=== PATIENT | female | born 1950 | race Caucasian/White ===

== ENCOUNTER → 2018-05-29 14:09 | Outpatient (CLI) | payer MEDICARE, BC, SELFPAY ==
[2018-05-29 15:04] LABS: Add Manual Diff / Slide Review NO; Basophils Percent Auto 2.1 % (0-2); Eosinophils Percent Auto 2.9 % (2-4); Hematocrit 36.7 % (36-46); Hemoglobin 12.2 g/dL (12.0-16.0); Lymphocytes Percent Auto 26.1 % (25-40); Mean Corpuscular HGB Conc 33.3 % (30-36); Mean Corpuscular Hemoglobin 31.7 PG (26-34); Mean Corpuscular Volume 95.2 fL (80-100); Monocytes Percent Auto 9.7 % (3-14); Neutrophils Absolute Auto 2900 /uL (3000-5900); Neutrophils Percent Auto 59.2 % (50-75); Platelet Count 244 X10^3/uL (150-400); Red Blood Cell Count 3.85 X10^6/uL (4.0-5.2); Red Cell Distribution Width 13.2 % (11.6-14.8)
[2018-05-29 15:15] LABS: BUN Creatinine Ratio 24.4 (6-22); Blood Urea Nitrogen 22 mg/dL (7-17); Carbon Dioxide 28 mmol/L (22-32); Chloride 104 mmol/L (98-107); Estimated Glomerular Filt Rate > 60.0 mL/min (>60); Glucose 95 mg/dL (80-110); HEMOLYSIS < 15 (0-50); Potassium 4.9 mmol/L (3.4-5.1); Sodium 140 mmol/L (137-145)
[2018-05-31 13:43] LABS: Ionized Calcium 6.1 mg/dL (4.8-5.6)
[2018-05-31 14:35] LABS: Parathyroid Hormone Int 227 pg/mL (14-64)
== END ==
PROVIDERS: PCP Physician Assistant; Visit Provider Physician Assistant
DX: E83.52 Hypercalcemia (principal); I10 Essential (primary) hypertension; R79.89 Other specified abnormal findings of blood chemistry
CPT/HCPCS: 36415; 80048; 82330; 83970; 85025

== ENCOUNTER → 2018-07-08 10:13 | Outpatient (CLI) | payer MEDICARE, BC, SELFPAY ==
--- NOTE | 2018-07-08 | DI.MG.S_ITS ---
BILATERAL DIGITAL SCREENING MAMMOGRAM 3D/2D WITH CAD WITH AUGMENTATION: 07/08/2018 CLINICAL: Routine screening. Comparison is made to exams dated: 06/07/2016 mammogram, 10/22/2014 mammogram, and 09/10/2013 mammogram - [facility]. There are scattered fibroglandular elements in both breasts. Current study was also evaluated with a Computer Aided Detection (CAD) system. Bilateral breast implants are stable. No significant masses, calcifications, or other findings are seen in either breast. There has been no significant interval change. IMPRESSION: NEGATIVE There is no mammographic evidence of malignancy. A 1 year screening mammogram is recommended. This exam was interpreted at Station ID: [id number]. NOTE: For mammograms, a report in lay terms will be sent to the patient. Approximately 15% of breast malignancies will not be visualized mammographically. In the management of a palpable breast mass, a negative mammogram must not discourage biopsy of a clinically suspicious lesion. Electronically Signed By: Ayla boogie/marcell:07/08/2018 12:22:24 letter sent: Normal Exam ACR BI-RADS Category 1: Negative [id number]
== END ==
PROVIDERS: PCP Physician Assistant; Visit Provider Physician Assistant
DX: Z12.31 Encounter for screening mammogram for malignant neoplasm of breast (principal)
CPT/HCPCS: 77063; 77067

== ENCOUNTER 2018-09-30 14:30 | Outpatient (RCR) | payer MEDICARE, BC, SELFPAY ==
--- NOTE | 2018-01-08 15:59 | PT.OIE ---
Current Diagnoses Other specified disorders of temporomandibular joint (01/07/18) Cervicalgia (01/07/18) Weakness (01/07/18) Past Medical History (Last Updated 01/08/18 @ 15:57 by Bere Dallas, PT) Chronic low back pain (Acute) Depression (Acute) HTN (hypertension) (Acute) Jaw pain (Acute) Neck pain (Acute) Osteoporosis (Acute) Provider Visit Care Team Role Provider Type ELSIE Barrios Primary Care Provider Non-Staff Specialty: Medical Address: [address] [place] [address], [id number] Email: Hugh Dallas MD Attending Provider Physician Specialty: Ear, Nose, Throat Address: [address] [place] [address], [id number] Email: Physical Therapy Initial Evaluation PT-OP-A Visit Information Start: 01/08/18 13:37 Freq: Status: Active Protocol: Document 01/07/18 11:15 [facility] (Rec: 01/08/18 13:45 [facility] [id number]) Out-Patient Physical Therapy Visit Information Visit Information Visit Type Initial Evaluation Visit Note Gcode 07/31 Visit Start Time 10:30 Visit Stop Time 11:15 Total Visit Minutes 45 Visit Number 1 PT-OP-B Current Condition Start: 01/08/18 13:37 Freq: Status: Active Protocol: Document 01/07/18 11:15 [facility] (Rec: 01/08/18 15:59 [facility] [id number]) Current Condition History of Current Condition History of Current Condition Pt reports she went to the chiropractor [facility] chronic neck & shoulder pain about 6 weeks ago and he did a manipulation that pressed on R jaw to mobilize neck. After this manipulation, pt had had excrutiating R jaw pain. Pt reports it took a while to get into PT but she stopped going to this chiropractor and went to another who she likes better. This chiropractor has been workingon her neck. Reports it was very difficult she could barely eat anything d/t pain until the past 2 weeks where she has not had any jaw pain. She does still have creaking on R side of jaw . Pt reports she also had a fall when hiking 1 month to 6 weeks ago and fell fwd. She was sore all over at first then became sore to the touch of the R thigh that is still bothering her. Pt reports pull in thigh with bending knee. Prior Treatments and Tests Chiropractor PT-OP-J Posture/Palpation/Skin Start: 01/08/18 13:37 Freq: Status: Active Protocol: Document 01/07/18 11:15 [facility] (Rec: 01/08/18 13:45 [facility] [id number]) Posture Evaluation Comments Posture Comments Overall good posture with min fwd shoulders & head Palpation Assessment Location One Palpation Location R jaw Palpation Findings Soft Tissue Tightness Tenderness Palpation Details Masseter, joint capsule/disc, digastric, ptyergoid PT-OP-K Range of Motion Start: 01/08/18 13:37 Freq: Status: Active Protocol: Document 01/07/18 11:15 [facility] (Rec: 01/08/18 15:59 [facility] [id number]) Cervical Spine Range of Motion Cervical Spine Active Degrees Testing Position Sitting Flexion 55 Extension 40 Rotation Left 48 Rotation Right 40 Lateral Flexion Left 20 Lateral Flexion Right 40 TMJ Range of Motion Jaw Openning Jaw Openning (mm) 4.2 cm Comments Comments deviation WNL no pain; S curve with closing intermittently PT-OP-Q Treatments Start: 01/08/18 13:37 Freq: Status: Active Protocol: Document 01/07/18 11:15 [facility] (Rec: 01/08/18 15:59 [facility] [email or web address]) Therapeutic Exercises Supine Exercises 1 Supine Exercise Name axial elongation Reps/Minutes 5 Sitting Exercises 2 Sitting Exercise Name jaw opening w/ tongue on soft pallete Reps/Minutes 10 1 Sitting Exercise Name isometric jaw opening & deviation Reps/Minutes 5 sec hold x2 Comments in closed position & slightly open; attempted opened wide with pain so stop Standing Exercises 1 Standing Exercise Name wall posture w/90/90 ER Therapeutic Activity Therapeutic Activity 1 Name posture Comments discussed importance of posture when eating PT-OP-T Assessment and Plan Start: 01/08/18 13:37 Freq: Status: Active Protocol: Document 01/07/18 11:15 [facility] (Rec: 01/08/18 15:59 [facility] [id number]) Physical Therapy Assessment Rehab Potential Rehabilitation Potential Excellent Evaluation Complexity Number of Personal Factors/Comorbidities 3 or More Number of Body Systems Impaired 3 Clinical Presentation at Evaluation Stable Impairments Impairments Posture Soft Tissue Mobility Strength Goals Two Impairment ROM Short Term Goal (STG) Pt will be able to open and close jaw without deviations STG Duration 02/06/18 [facility] Goal (LTG) WNL cervical ROM to allow pt to do ADLs without pain or difficulty LTG Duration 03/09/18 One Impairment clicking Short Term Goal (STG) No soft tissue restrictions of jaw mm allowing improved motion of TMJ STG Duration 02/06/18 Supervisor Evaporator Goal (LTG) Pt will report no clicking of jaw with eating. LTG Duration 03/09/18 Physical Therapy Plan Frequency and Duration Frequency of Treatment 1x/Week Duration of Treatment 2 months Plan of Care Start Date 01/07/18 Plan of Care End Date 03/09/18 Next Visit Focus/Plan Next Note Type Treatment Note Next Visit Plan STM to jaw mm; review HEP
--- NOTE | 2018-01-08 15:59 | PT.OPPOC ---
Current Diagnoses Other specified disorders of temporomandibular joint (01/07/18) Cervicalgia (01/07/18) Weakness (01/07/18) Provider Visit Care Team Role Provider Type ELSIE Barrios Primary Care Provider Non-Staff Specialty: Medical Address: [address] [place] [address], [phone] Email: Hugh Dallas MD Attending Provider Physician Specialty: Ear, Nose, Throat Address: [address] [place] [address], [id number] Email: Plan Of Care PT-OP-T Assessment and Plan Start: 01/08/18 13:37 Freq: Status: Active Protocol: Document 01/07/18 11:15 [facility] (Rec: 01/08/18 15:59 [facility] [id number]) Physical Therapy Assessment Rehab Potential Rehabilitation Potential Excellent Evaluation Complexity Number of Personal Factors/Comorbidities 3 or More Number of Body Systems Impaired 3 Clinical Presentation at Evaluation Stable Impairments Impairments Posture Soft Tissue Mobility Strength Goals Two Impairment ROM Short Term Goal (STG) Pt will be able to open and close jaw without deviations STG Duration 02/06/18 Long-Term Goal (LTG) WNL cervical ROM to allow pt to do ADLs without pain or difficulty LTG Duration 03/09/18 One Impairment clicking Short Term Goal (STG) No soft tissue restrictions of jaw mm allowing improved motion of TMJ STG Duration 02/06/18 Long-Term Goal (LTG) Pt will report no clicking of jaw with eating. LTG Duration 03/09/18 Physical Therapy Plan Frequency and Duration Frequency of Treatment 1x/Week Duration of Treatment 2 months Plan of Care Start Date 01/07/18 Plan of Care End Date 03/09/18 Next Visit Focus/Plan Next Note Type Treatment Note Next Visit Plan STM to jaw mm; review HEP Plan of Care Dates Plan of Care Start Date 01/07/18 Plan of Care End Date 03/09/18 Please Sign and Return: I have reviewed this Plan of Care and certify that the skilled therapy services above are required to meet the patient?s needs. Physician Signature Date Printed Name and Credentials Clinical Instructor Signature Printed Name and Credentials
--- NOTE | 2018-02-19 15:59 | PT.OTN ---
Current Diagnoses Other specified disorders of temporomandibular joint (02/19/18) Physical Therapy Treatment Note PT-OP-A Visit Information Start: 01/08/18 13:37 Freq: Status: Active Protocol: Document 02/19/18 15:54 [facility] (Rec: 02/19/18 15:59 [facility] [email or web address]) Out-Patient Physical Therapy Visit Information Visit Information Visit Type Treatment Note Visit Note Gcode 08/31 Visit Start Time 13:00 Visit Stop Time 14:00 Total Visit Minutes 60 Visit Number 2 PT-OP-B Current Condition Start: 01/08/18 13:37 Freq: Status: Active Protocol: Document 01/07/18 11:15 [facility] (Rec: 01/08/18 15:59 [facility] [email or web address]) Current Condition History of Current Condition History of Current Condition Pt reports she went to the chiropractor [facility] chronic neck & shoulder pain about 6 weeks ago and he did a manipulation that pressed on R jaw to mobilize neck. After this manipulation, pt had had excrutiating R jaw pain. Pt reports it took a while to get into PT but she stopped going to this chiropractor and went to another who she likes better. This chiropractor has been workingon her neck. Reports it was very difficult she could barely eat anything d/t pain until the past 2 weeks where she has not had any jaw pain. She does still have creaking on R side of jaw . Pt reports she also had a fall when hiking 1 month to 6 weeks ago and fell fwd. She was sore all over at first then became sore to the touch of the R thigh that is still bothering her. Pt reports pull in thigh with bending knee. Prior Treatments and Tests Chiropractor PT-OP-C Subjective Start: 01/08/18 13:37 Freq: Status: Active Protocol: Document 02/19/18 15:54 [facility] (Rec: 02/19/18 15:59 [facility] [email or web address]) OP-PT Subjective Patient Comments Patient Comments Reports she has not had a lot of time to do the exercises. Her neck has been hurting. PT-OP-J Posture/Palpation/Skin Start: 01/08/18 13:37 Freq: Status: Active Protocol: Document 01/07/18 11:15 [facility] (Rec: 01/08/18 13:45 [facility] [email or web address]) Posture Evaluation Comments Posture Comments Overall good posture with min fwd shoulders & head Palpation Assessment Location One Palpation Location R jaw Palpation Findings Soft Tissue Tightness Tenderness Palpation Details Masseter, joint capsule/disc, digastric, ptyergoid PT-OP-K Range of Motion Start: 01/08/18 13:37 Freq: Status: Active Protocol: Document 01/07/18 11:15 [facility] (Rec: 01/08/18 15:59 [facility] [email or web address]) Cervical Spine Range of Motion Cervical Spine Active Degrees Testing Position Sitting Flexion 55 Extension 40 Rotation Left 48 Rotation Right 40 Lateral Flexion Left 20 Lateral Flexion Right 40 TMJ Range of Motion Jaw Openning Jaw Openning (mm) 4.2 cm Comments Comments deviation WNL no pain; S curve with closing intermittently PT-OP-Q Treatments Start: 01/08/18 13:37 Freq: Status: Active Protocol: Document 02/19/18 15:54 [facility] (Rec: 02/19/18 15:59 [facility] [email or web address]) Therapeutic Exercises Supine Exercises 1 Supine Exercise Name axial elongation Reps/Minutes 5 Sitting Exercises 3 Sitting Exercise Name UT, LS & scalene stretches Reps/Minutes 30 sec holds each 2 Sitting Exercise Name jaw opening w/ tongue on soft pallete Reps/Minutes 10 1 Sitting Exercise Name isometric jaw opening & deviation Reps/Minutes 5 sec hold x2 Comments in closed position & slightly open; attempted opened wide with pain so stop Standing Exercises 1 Standing Exercise Name wall posture w/90/90 ER Manual Therapy Treatment Soft Tissue Mobilization 3 Body Location SOR Mobilization Type Sustained Pressure 2 Body Location LS, UT & cervical paraspinals B Mobilization Type Rolling 1 Body Location temporalis & masseter Mobilization Type Sustained Pressure Joint Mobilizations 1 Joint C4-6 Direction transverse & UPA FM PT-OP-R Modalities Start: 01/08/18 13:37 Freq: Status: Active Protocol: Document 02/19/18 15:54 [facility] (Rec: 02/19/18 15:59 [facility] [email or web address]) Hot Pack/Cold Pack Treatment Hot Pack Location cervical Treatment Duration (minutes) 15 PT-OP-T Assessment and Plan Start: 01/08/18 13:37 Freq: Status: Active Protocol: Document 02/19/18 15:54 [facility] (Rec: 02/19/18 15:59 [facility] [email or web address]) Physical Therapy Assessment Goals Two Impairment ROM Short Term Goal (STG) Pt will be able to open and close jaw without deviations STG Duration 02/06/18 Assisted Goal (LTG) WNL cervical ROM to allow pt to do ADLs without pain or difficulty LTG Duration 03/09/18 One Impairment clicking Short Term Goal (STG) No soft tissue restrictions of jaw mm allowing improved motion of TMJ STG Duration 02/06/18 Assisted Goal (LTG) Pt will report no clicking of jaw with eating. LTG Duration 03/09/18 Assessment Summary Assessment Pt had improved cervical ROM with dec pain after rx. Improved jaw motion today with dec deviation. Cueing required for HEP. Physical Therapy Plan Frequency and Duration Frequency of Treatment 1x/Week Duration of Treatment 2 months Plan of Care Start Date 01/07/18 Plan of Care End Date 03/09/18 Next Visit Focus/Plan Next Note Type Treatment Note Next Visit Plan STM to jaw mm; review HEP
--- NOTE | 2018-02-26 15:00 | PT.OTN ---
Current Diagnoses Other specified disorders of temporomandibular joint (02/26/18) Physical Therapy Treatment Note PT-OP-A Visit Information Start: 01/08/18 13:37 Freq: Status: Active Protocol: Document 02/26/18 13:02 [facility] (Rec: 02/26/18 14:59 [facility] [id number]) Out-Patient Physical Therapy Visit Information Visit Information Visit Type Treatment Note Visit Note Gcode 09/28 Visit Start Time 13:00 Visit Stop Time 14:00 Total Visit Minutes 60 Visit Number 3 PT-OP-B Current Condition Start: 01/08/18 13:37 Freq: Status: Active Protocol: Document 01/07/18 11:15 [facility] (Rec: 01/08/18 15:59 [facility] [email or web address]) Current Condition History of Current Condition History of Current Condition Pt reports [facility] and he did a manipulation that pressed on R jaw to mobilize neck. After this manipulation, pt had had excrutiating R jaw pain. Pt reports it took a while to get into PT but she stopped going to this chiropractor and went to another who she likes better. This chiropractor has been workingon her neck. Reports it was very difficult she could barely eat anything d/t pain until the past 2 weeks where she has not had any jaw pain. She does still have creaking on R side of jaw . Pt reports she also had a fall when hiking 1 month to 6 weeks ago and fell fwd. She was sore all over at first then became sore to the touch of the R thigh that is still bothering her. Pt reports pull in thigh with bending knee. Prior Treatments and Tests Chiropractor PT-OP-C Subjective Start: 01/08/18 13:37 Freq: Status: Active Protocol: Document 02/26/18 13:02 [facility] (Rec: 02/26/18 15:00 [facility] [id number]) OP-PT Subjective Patient Comments Patient Comments Pt reports compliance with HEP . PT-OP-J Posture/Palpation/Skin Start: 01/08/18 13:37 Freq: Status: Active Protocol: Document 01/07/18 11:15 [facility] (Rec: 01/08/18 13:45 [facility] [email or web address]) Posture Evaluation Comments Posture Comments Overall good posture with min fwd shoulders & head Palpation Assessment Location One Palpation Location R jaw Palpation Findings Soft Tissue Tightness Tenderness Palpation Details Masseter, joint capsule/disc, digastric, ptyergoid PT-OP-K Range of Motion Start: 01/08/18 13:37 Freq: Status: Active Protocol: Document 01/07/18 11:15 [facility] (Rec: 01/08/18 15:59 [facility] [email or web address]) Cervical Spine Range of Motion Cervical Spine Active Degrees Testing Position Sitting Flexion 55 Extension 40 Rotation Left 48 Rotation Right 40 Lateral Flexion Left 20 Lateral Flexion Right 40 TMJ Range of Motion Jaw Openning Jaw Openning (mm) 4.2 cm Comments Comments deviation WNL no pain; S curve with closing intermittently PT-OP-Q Treatments Start: 01/08/18 13:37 Freq: Status: Active Protocol: Document 02/26/18 13:02 [facility] (Rec: 02/26/18 14:59 [facility] [id number]) Therapeutic Exercises Supine Exercises 1 Supine Exercise Name axial elongation Reps/Minutes 5 Sitting Exercises 3 Sitting Exercise Name UT, LS & scalene stretches Reps/Minutes 30 sec holds each 2 Sitting Exercise Name jaw opening w/ tongue on soft pallete Reps/Minutes 10 1 Sitting Exercise Name isometric jaw opening & deviation Reps/Minutes 5 sec hold x2 Comments in closed position & slightly open; attempted opened wide with pain so stop Standing Exercises 1 Standing Exercise Name wall posture w/90/90 ER PT-OP-R Modalities Start: 01/08/18 13:37 Freq: Status: Active Protocol: Document 02/26/18 13:02 [facility] (Rec: 02/26/18 15:00 [facility] [id number]) Hot Pack/Cold Pack Treatment Hot Pack Location cervical Treatment Duration (minutes) 15 PT-OP-T Assessment and Plan Start: 01/08/18 13:37 Freq: Status: Active Protocol: Document 02/26/18 13:02 [facility] (Rec: 02/26/18 14:59 [facility] [id number]) Physical Therapy Assessment Goals Two Impairment ROM Short Term Goal (STG) Pt will be able to open and close jaw without deviations STG Duration 02/06/18 [facility] Goal (LTG) WNL cervical ROM to allow pt to do ADLs without pain or difficulty LTG Duration 03/09/18 One Impairment clicking Short Term Goal (STG) No soft tissue restrictions of jaw mm allowing improved motion of TMJ STG Duration 02/06/18-improving [facility] Goal (LTG) Pt will report no clicking of jaw with eating. LTG Duration achieved Assessment Summary Assessment Pt required min cueing with exercises except for axial elongation, which cont to require significant cueing. Cont mm tightness around jaw, but improved. Physical Therapy Plan Frequency and Duration Frequency of Treatment 1x/Week Duration of Treatment 2 months Plan of Care Start Date 01/07/18 Plan of Care End Date 03/09/18 Next Visit Focus/Plan Next Note Type Treatment Note Next Visit Plan Cont to work on soft tissue around jaw; review posture
--- NOTE | 2018-02-26 15:06 | PT.OTN ---
Current Diagnoses Other specified disorders of temporomandibular joint (02/26/18) Physical Therapy Treatment Note PT-OP-A Visit Information Start: 01/08/18 13:37 Freq: Status: Active Protocol: Document 02/26/18 13:02 [facility] (Rec: 02/26/18 14:59 [facility] [id number]) Out-Patient Physical Therapy Visit Information Visit Information Visit Type Treatment Note Visit Note Gcode 09/28 Visit Start Time 13:00 Visit Stop Time 14:00 Total Visit Minutes 60 Visit Number 3 PT-OP-B Current Condition Start: 01/08/18 13:37 Freq: Status: Active Protocol: Document 01/07/18 11:15 [facility] (Rec: 01/08/18 15:59 [facility] [id number]) Current Condition History of Current Condition History of Current Condition Pt reports [facility] and he did a manipulation that pressed on R jaw to mobilize neck. After this manipulation, pt had had excrutiating R jaw pain. Pt reports it took a while to get into PT but she stopped going to this chiropractor and went to another who she likes better. This chiropractor has been workingon her neck. Reports it was very difficult she could barely eat anything d/t pain until the past 2 weeks where she has not had any jaw pain. She does still have creaking on R side of jaw . Pt reports she also had a fall when hiking 1 month to 6 weeks ago and fell fwd. She was sore all over at first then became sore to the touch of the R thigh that is still bothering her. Pt reports pull in thigh with bending knee. Prior Treatments and Tests Chiropractor PT-OP-C Subjective Start: 01/08/18 13:37 Freq: Status: Active Protocol: Document 02/26/18 13:02 [facility] (Rec: 02/26/18 15:00 [facility] [id number]) OP-PT Subjective Patient Comments Patient Comments Pt reports compliance with HEP . PT-OP-J Posture/Palpation/Skin Start: 01/08/18 13:37 Freq: Status: Active Protocol: Document 01/07/18 11:15 [facility] (Rec: 01/08/18 13:45 [facility] [id number]) Posture Evaluation Comments Posture Comments Overall good posture with min fwd shoulders & head Palpation Assessment Location One Palpation Location R jaw Palpation Findings Soft Tissue Tightness Tenderness Palpation Details Masseter, joint capsule/disc, digastric, ptyergoid PT-OP-K Range of Motion Start: 01/08/18 13:37 Freq: Status: Active Protocol: Document 01/07/18 11:15 [facility] (Rec: 01/08/18 15:59 [facility] [id number]) Cervical Spine Range of Motion Cervical Spine Active Degrees Testing Position Sitting Flexion 55 Extension 40 Rotation Left 48 Rotation Right 40 Lateral Flexion Left 20 Lateral Flexion Right 40 TMJ Range of Motion Jaw Openning Jaw Openning (mm) 4.2 cm Comments Comments deviation WNL no pain; S curve with closing intermittently PT-OP-Q Treatments Start: 01/08/18 13:37 Freq: Status: Active Protocol: Document 02/26/18 13:02 [facility] (Rec: 02/26/18 14:59 [facility] [id number]) Therapeutic Exercises Supine Exercises 1 Supine Exercise Name axial elongation Reps/Minutes 5 Sitting Exercises 3 Sitting Exercise Name UT, LS & scalene stretches Reps/Minutes 30 sec holds each 2 Sitting Exercise Name jaw opening w/ tongue on soft pallete Reps/Minutes 10 1 Sitting Exercise Name isometric jaw opening & deviation Reps/Minutes 5 sec hold x2 Comments in closed position & slightly open; attempted opened wide with pain so stop Standing Exercises 1 Standing Exercise Name wall posture w/90/90 ER Manual Therapy Treatment Soft Tissue Mobilization 4 Body Location cranial fascia Mobilization Type Myofascial Release 3 Body Location SOR Mobilization Type Sustained Pressure 2 Body Location LS, UT & cervical paraspinals B Mobilization Type Rolling 1 Body Location temporalis & masseter Mobilization Type Sustained Pressure PT-OP-R Modalities Start: 01/08/18 13:37 Freq: Status: Active Protocol: Document 02/26/18 13:02 [facility] (Rec: 02/26/18 15:00 [facility] [id number]) Hot Pack/Cold Pack Treatment Hot Pack Location cervical Treatment Duration (minutes) 15 PT-OP-T Assessment and Plan Start: 01/08/18 13:37 Freq: Status: Active Protocol: Document 02/26/18 13:02 [facility] (Rec: 02/26/18 14:59 [facility] [id number]) Physical Therapy Assessment Goals Two Impairment ROM Short Term Goal (STG) Pt will be able to open and close jaw without deviations STG Duration 02/06/18 Elevator Constructor Helper Goal (LTG) WNL cervical ROM to allow pt to do ADLs without pain or difficulty LTG Duration 03/09/18 One Impairment clicking Short Term Goal (STG) No soft tissue restrictions of jaw mm allowing improved motion of TMJ STG Duration 02/06/18-improving [facility] Goal (LTG) Pt will report no clicking of jaw with eating. LTG Duration achieved Assessment Summary Assessment Pt required min cueing with exercises except for axial elongation, which cont to require significant cueing. Cont mm tightness around jaw, but improved. Physical Therapy Plan Frequency and Duration Frequency of Treatment 1x/Week Duration of Treatment 2 months Plan of Care Start Date 01/07/18 Plan of Care End Date 03/09/18 Next Visit Focus/Plan Next Note Type Treatment Note Next Visit Plan Cont to work on soft tissue around jaw; review posture
--- NOTE | 2018-03-21 13:00 | PT.OTN ---
Current Diagnoses Other specified disorders of temporomandibular joint (03/21/18) Physical Therapy Treatment Note PT-OP-A Visit Information Start: 01/08/18 13:37 Freq: Status: Active Protocol: Document 03/21/18 12:18 [facility] (Rec: 03/21/18 13:00 [facility] [id number]) Out-Patient Physical Therapy Visit Information Visit Information Visit Type Treatment Note Visit Note 4 total visits Visit Start Time 12:15 Visit Stop Time 13:15 Total Visit Minutes 60 Visit Number 07/31 PT-OP-B Current Condition Start: 01/08/18 13:37 Freq: Status: Active Protocol: Document 01/07/18 11:15 [facility] (Rec: 01/08/18 15:59 [facility] [id number]) Current Condition History of Current Condition History of Current Condition Pt reports she went to the chiropractor [facility] chronic neck & shoulder pain about 6 weeks ago and he did a manipulation that pressed on R jaw to mobilize neck. After this manipulation, pt had had excrutiating R jaw pain. Pt reports it took a while to get into PT but she stopped going to this chiropractor and went to another who she likes better. This chiropractor has been workingon her neck. Reports it was very difficult she could barely eat anything d/t pain until the past 2 weeks where she has not had any jaw pain. She does still have creaking on R side of jaw . Pt reports she also had a fall when hiking 1 month to 6 weeks ago and fell fwd. She was sore all over at first then became sore to the touch of the R thigh that is still bothering her. Pt reports pull in thigh with bending knee. Prior Treatments and Tests Chiropractor PT-OP-C Subjective Start: 01/08/18 13:37 Freq: Status: Active Protocol: Document 03/21/18 12:18 [facility] (Rec: 03/21/18 13:00 [facility] [id number]) OP-PT Subjective Patient Comments Patient Comments Reports doing exercises most days. PT-OP-J Posture/Palpation/Skin Start: 01/08/18 13:37 Freq: Status: Active Protocol: Document 01/07/18 11:15 [facility] (Rec: 01/08/18 13:45 [facility] [id number]) Posture Evaluation Comments Posture Comments Overall good posture with min fwd shoulders & head Palpation Assessment Location One Palpation Location R jaw Palpation Findings Soft Tissue Tightness Tenderness Palpation Details Masseter, joint capsule/disc, digastric, ptyergoid PT-OP-K Range of Motion Start: 01/08/18 13:37 Freq: Status: Active Protocol: Document 03/21/18 12:18 [facility] (Rec: 03/21/18 13:00 [facility] [id number]) Cervical Spine Range of Motion Cervical Spine Active Degrees Flexion 70 Extension 37 Rotation Left 62 Rotation Right 50 Lateral Flexion Left 27 Lateral Flexion Right 30 Comments tight with ext & SB & rotation TMJ Range of Motion Comments Comments WNL S curve at end range open & close PT-OP-Q Treatments Start: 01/08/18 13:37 Freq: Status: Active Protocol: Document 03/21/18 12:18 [facility] (Rec: 03/21/18 13:00 [facility] [id number]) Manual Therapy Treatment Soft Tissue Mobilization 5 Body Location pterygoid & joint capsule Mobilization Type Sustained Pressure 4 Body Location cranial fascia Mobilization Type Myofascial Release 1 Body Location temporalis & masseter & digastric Mobilization Type Sustained Pressure Joint Mobilizations 1 Joint TMJ Direction distraction R PT-OP-R Modalities Start: 01/08/18 13:37 Freq: Status: Active Protocol: Document 03/21/18 12:18 [facility] (Rec: 03/21/18 13:00 [facility] [id number]) Hot Pack/Cold Pack Treatment Hot Pack Location cervical Treatment Duration (minutes) 15 PT-OP-T Assessment and Plan Start: 01/08/18 13:37 Freq: Status: Active Protocol: Document 03/21/18 12:18 [facility] (Rec: 03/21/18 13:00 [facility] [id number]) Physical Therapy Assessment Goals Two Impairment ROM Short Term Goal (STG) Pt will be able to open and close jaw without deviations STG Duration Rv Body Mechanic Goal (LTG) WNL cervical ROM to allow pt to do ADLs without pain or difficulty LTG Duration 05/21/18 One Impairment clicking Short Term Goal (STG) No soft tissue restrictions of jaw mm allowing improved motion of TMJ STG Duration -improving Rv Body Mechanic Goal (LTG) Pt will report no clicking of jaw with eating. LTG Duration achieved Assessment Summary Assessment Pt cont to have significant soft tissue restricitons for R side of jaw region & cranium. Pt is having neck pain and encouraged to get a referral from MD. Physical Therapy Plan Frequency and Duration Frequency of Treatment 1x/Week Duration of Treatment 1 months Plan of Care Start Date 03/21/18 Plan of Care End Date 04/20/18 Therapeutic Interventions Modalities Cold Pack/Ice Massage Hot Packs Next Visit Focus/Plan Next Note Type Treatment Note Next Visit Plan Cont to work on soft tissue around jaw
--- NOTE | 2018-03-21 13:01 | PT.OPPOC ---
Current Diagnoses Other specified disorders of temporomandibular joint (03/21/18) Provider Visit Care Team Role Provider Type ELSIE Martinez Primary Care Provider Non-Staff Specialty: Medical Address: [address] [place] [address], [phone] Email: Hugh Dallas MD Attending Provider Physician Specialty: Ear, Nose, Throat Address: [address] [place] [address], [phone] Email: Plan Of Care PT-OP-T Assessment and Plan Start: 01/08/18 13:37 Freq: Status: Active Protocol: Document 03/21/18 12:18 [facility] (Rec: 03/21/18 13:00 [facility] [id number]) Physical Therapy Assessment Goals Two Impairment ROM Short Term Goal (STG) Pt will be able to open and close jaw without deviations STG Duration Jail Goal (LTG) WNL cervical ROM to allow pt to do ADLs without pain or difficulty LTG Duration 05/21/18 One Impairment clicking Short Term Goal (STG) No soft tissue restrictions of jaw mm allowing improved motion of TMJ STG Duration -improving Program Management Manager Goal (LTG) Pt will report no clicking of jaw with eating. LTG Duration achieved Assessment Summary Assessment Pt cont to have significant soft tissue restricitons for R side of jaw region & cranium. Pt is having neck pain and encouraged to get a referral from MD. Physical Therapy Plan Frequency and Duration Frequency of Treatment 1x/Week Duration of Treatment 1 months Plan of Care Start Date 03/21/18 Plan of Care End Date 04/20/18 Therapeutic Interventions Modalities Cold Pack/Ice Massage Hot Packs Next Visit Focus/Plan Next Note Type Treatment Note Next Visit Plan Cont to work on soft tissue around jaw Plan of Care Dates Plan of Care Start Date 03/21/18 Plan of Care End Date 04/20/18 Please Sign and Return: I have reviewed this Plan of Care and certify that the skilled therapy services above are required to meet the patient?s needs. Physician Signature Date Printed Name and Credentials Clinical Instructor Signature Printed Name and Credentials
--- NOTE | 2018-04-10 16:36 | PT.OTN ---
Current Diagnoses Other specified disorders of temporomandibular joint (04/10/18) Physical Therapy Treatment Note PT-OP-A Visit Information Start: 01/08/18 13:37 Freq: Status: Active Protocol: Document 04/10/18 09:22 [facility] (Rec: 04/11/18 09:36 [facility] [id number]) Out-Patient Physical Therapy Visit Information Visit Information Visit Type Treatment Note Visit Note 5 total visits Visit Start Time 14:30 Visit Stop Time 15:30 Total Visit Minutes 60 Visit Number 08/31 PT-OP-B Current Condition Start: 01/08/18 13:37 Freq: Status: Active Protocol: Document 01/07/18 11:15 [facility] (Rec: 01/08/18 15:59 [facility] [id number]) Current Condition History of Current Condition History of Current Condition Pt reports she went to the chiropractor [facility] chronic neck & shoulder pain about 6 weeks ago and he did a manipulation that pressed on R jaw to mobilize neck. After this manipulation, pt had had excrutiating R jaw pain. Pt reports it took a while to get into PT but she stopped going to this chiropractor and went to another who she likes better. This chiropractor has been workingon her neck. Reports it was very difficult she could barely eat anything d/t pain until the past 2 weeks where she has not had any jaw pain. She does still have creaking on R side of jaw . Pt reports she also had a fall when hiking 1 month to 6 weeks ago and fell fwd. She was sore all over at first then became sore to the touch of the R thigh that is still bothering her. Pt reports pull in thigh with bending knee. Prior Treatments and Tests Chiropractor PT-OP-C Subjective Start: 01/08/18 13:37 Freq: Status: Active Protocol: Document 04/10/18 09:22 [facility] (Rec: 04/11/18 09:36 [facility] [id number]) OP-PT Subjective Patient Comments Patient Comments Reports she has had some dizziness recently. BP has been low a couple times. Reports she is trying to get a new primary. PT-OP-J Posture/Palpation/Skin Start: 01/08/18 13:37 Freq: Status: Active Protocol: Document 01/07/18 11:15 [facility] (Rec: 01/08/18 13:45 [facility] [id number]) Posture Evaluation Comments Posture Comments Overall good posture with min fwd shoulders & head Palpation Assessment Location One Palpation Location R jaw Palpation Findings Soft Tissue Tightness Tenderness Palpation Details Masseter, joint capsule/disc, digastric, ptyergoid PT-OP-K Range of Motion Start: 01/08/18 13:37 Freq: Status: Active Protocol: Document 03/21/18 12:18 [facility] (Rec: 03/21/18 13:00 [facility] [id number]) Cervical Spine Range of Motion Cervical Spine Active Degrees Flexion 70 Extension 37 Rotation Left 62 Rotation Right 50 Lateral Flexion Left 27 Lateral Flexion Right 30 Comments tight with ext & SB & rotation TMJ Range of Motion Comments Comments WNL S curve at end range open & close PT-OP-Q Treatments Start: 01/08/18 13:37 Freq: Status: Active Protocol: Document 04/10/18 09:22 [facility] (Rec: 04/11/18 09:36 [facility] [id number]) Manual Therapy Treatment Soft Tissue Mobilization 5 Body Location pterygoid & joint capsule Mobilization Type Sustained Pressure 4 Body Location cranial fascia Mobilization Type Myofascial Release 1 Body Location temporalis & masseter & digastric Mobilization Type Sustained Pressure Joint Mobilizations 1 Joint TMJ Direction distraction R PT-OP-R Modalities Start: 01/08/18 13:37 Freq: Status: Active Protocol: Document 04/10/18 09:22 [facility] (Rec: 04/11/18 09:36 [facility] [id number]) Hot Pack/Cold Pack Treatment Hot Pack Location cervical Treatment Duration (minutes) 15 PT-OP-T Assessment and Plan Start: 01/08/18 13:37 Freq: Status: Active Protocol: Document 04/10/18 09:22 [facility] (Rec: 04/11/18 09:36 [facility] [id number]) Physical Therapy Assessment Goals Two Impairment ROM Short Term Goal (STG) Pt will be able to open and close jaw without deviations STG Duration Field Pipe Lines Supervisor Goal (LTG) WNL cervical ROM to allow pt to do ADLs without pain or difficulty LTG Duration 05/21/18 One Impairment clicking Short Term Goal (STG) No soft tissue restrictions of jaw mm allowing improved motion of TMJ STG Duration -improving Field Pipe Lines Supervisor Goal (LTG) Pt will report no clicking of jaw with eating. LTG Duration achieved Assessment Summary Assessment Improved jaw motion with soft tissue release. Pt has improvement in mobility of jaw . Pt encouraged to try to get appt scheduled for MD and go to office after this session to discuss dizziness. If dizziness starts again encouraged to go to walk in clinic. Physical Therapy Plan Frequency and Duration Frequency of Treatment 1x/Week Duration of Treatment 1 months Plan of Care Start Date 03/21/18 Plan of Care End Date 04/20/18 Next Visit Focus/Plan Next Note Type Treatment Note Next Visit Plan Cont to work on soft tissue around jaw
--- NOTE | 2018-05-21 11:54 | PT.OIE ---
Current Diagnoses Other specified disorders of temporomandibular joint (05/21/18) Past Medical History (Last Updated 01/08/18 @ 15:57 by Bere Dallas, PT) Chronic low back pain (Acute) Depression (Acute) HTN (hypertension) (Acute) Jaw pain (Acute) Neck pain (Acute) Osteoporosis (Acute) Provider Visit Care Team Role Provider Type ELSIE Martinez Primary Care Provider Non-Staff Specialty: Medical Address: [address] [place] [address], [phone] Email: Hugh Dallas MD Attending Provider Physician Specialty: Ear, Nose, Throat Address: [address] [place] [address], [phone] Email: Physical Therapy Initial Evaluation PT-OP-A Visit Information Start: 01/08/18 13:37 Freq: Status: Active Protocol: Document 05/21/18 10:27 [facility] (Rec: 05/21/18 11:52 [facility] [id number]) Out-Patient Physical Therapy Visit Information Visit Information Visit Type Re-Evaluation Visit Note 6 total visits Visit Start Time 10:30 Visit Stop Time 11:30 Total Visit Minutes 60 Visit Number 07/31 PT-OP-B Current Condition Start: 01/08/18 13:37 Freq: Status: Active Protocol: Document 05/21/18 10:27 [facility] (Rec: 05/21/18 11:52 [facility] [id number]) Current Condition History of Current Condition Onset Date decades History of Current Condition Jaw is doing well and no more popping. Pt reports neck pain has lasted a couple decades. Reports she had a couple falls . One in 1999 where she hit her R side and R shoulder, back & neck was injured [place]. Reports a couple other falls that gave her a problem. Reports now neck pain into R> L shoulder. Dizziness has been better recently been d/t dec in BP meds. Has had some FARLEY but got sick a couple weeks ago and d/t not getting better she started antibotics. FARLEY was during feeling sick. Last one was 2 days ago. She thinks it may have to do with being still sick. Prior Treatments and Tests PT for TMD; chiropractor did x -rays last year- stopped seeing chiro during PT- gives temporary relief for about 1.5 days then tightens back up. When went in 3x/week and was feeling better when consistently going in. Treatment Goals Patient/Caregiver Goals Don't want pain to get worse, wants to have freedom to move head, doesn't want it to prevent her from driving, gardening & day to day activities. PT-OP-C Subjective Start: 01/08/18 13:37 Freq: Status: Active Protocol: Document 05/21/18 10:27 [facility] (Rec: 05/21/18 11:52 [facility] [id number]) Patient Questionnaires Neck Disability Index NDI Score 12 Neck Disability Index Impairment 20 to 39% Impaired (Score 10- 19) OP-PT Pain Assessment Location neck pain Pain Location Details neck B R>L Intensity 6 Scale Used Numeric (1 - 10) Description Pulling Spasm Tightness With Movement Description- Other Freezes up 1x/yr and gives 7/ 10 pain Frequency Daily Pain Duration during movement & sometimes throughtout day if wake up painful Radiating Location into R>L shoulder blades Other Pain Aggravating Factors moving, reaching, sometimes when wake up, turning head Other Pain Alleviating Factors stop activity, keep moving, heat PT-OP-F Manual Assessment Start: 05/21/18 07:27 Freq: Status: Active Protocol: Document 05/21/18 10:27 [facility] (Rec: 05/21/18 11:52 [facility] [id number]) Manual Assessments Soft Tissue Assessment Soft Tissue Mobility Assessment tightness throughout the cervical region especially ant like scalenes & SCM; inc tightness of cervical parapsinals, UT, LS Joint Mobility Assessment Joint Mobility Assessment Dec thoracic rotation B; elevated 1st ribs B PT-OP-J Posture/Palpation/Skin Start: 01/08/18 13:37 Freq: Status: Active Protocol: Document 05/21/18 10:27 [facility] (Rec: 05/21/18 11:53 [facility] [id number]) Posture Evaluation Shawn Postural Classification System Shawn Postural Classifications Anterior/Posterior PT-OP-K Range of Motion Start: 01/08/18 13:37 Freq: Status: Active Protocol: Document 05/21/18 10:27 [facility] (Rec: 05/21/18 11:52 [facility] [id number]) Cervical Spine Range of Motion Cervical Spine Active Degrees Testing Position Sitting Flexion 40 Extension 32 Rotation Left 43 Rotation Right 50 Lateral Flexion Left 29 Lateral Flexion Right 26 Comments R lat tilt pain on R, L lat tilt no sx Shoulder Goniometric Range of Motion Shoulder ROM Limitations Comments pain w/R abd in R shoulder, pull in lats, but ROM WFL PT-OP-L Special Tests Start: 05/21/18 07:27 Freq: Status: Active Protocol: Document 05/21/18 10:27 [facility] (Rec: 05/21/18 11:52 [facility] [id number]) Special Tests Cervical Spine Special Tests Traction Test Results gives relief, feels good Vertebral Artery Test Results neg bilat spurlings L&R Test Results neg bilat compression Test Results neg Neural Special Tests- Upper Body radial n Test Results pos on R with end range, sx = pulling ulnar n Test Results neg bilat median n Test Results pos at 90 degrees abd on L, pos at 30 degrees abd on R passive abd Test Results pos on R at 90 degrees PT-OP-M Strength Start: 05/21/18 07:27 Freq: Status: Active Protocol: Document 05/21/18 10:27 [facility] (Rec: 05/21/18 11:52 [facility] [id number]) Shoulder Strength Shoulder Manual Muscle Testing L Flexion 4 Good Extension 4+ Good+ Abduction (C5) 4 Good External Rotation 4+ Good+ Internal Rotation 4+ Good+ R Flexion 4- Good- Extension 4 Good Abduction (C5) 3+ Fair+ External Rotation 4- Good- Internal Rotation 4- Good- Comments pain w/abd and IR PT-OP-Q Treatments Start: 01/08/18 13:37 Freq: Status: Active Protocol: Document 05/21/18 10:27 [facility] (Rec: 05/21/18 11:52 [facility] [id number]) Therapeutic Exercises Supine Exercises 1 Supine Exercise Name chin tuck w/5sec hold Resistance axial elongation Comments cues and correction for placing head in position with hand support Standing Exercises B ER Standing Exercise Name ER Equipment Used L2 Reps/Minutes 12 Comments focus on scapular retraction shoulder rows Standing Exercise Name row Equipment Used L2 Reps/Minutes 12 Comments focus on scapular retraction 1 Standing Exercise Name posture wall roll up Comments cues for keeping spine against wall PT-OP-R Modalities Start: 01/08/18 13:37 Freq: Status: Active Protocol: Document 05/21/18 10:27 [facility] (Rec: 05/21/18 11:52 [facility] [id number]) Hot Pack/Cold Pack Treatment Hot Pack Location cervical Treatment Duration (minutes) 15 PT-OP-T Assessment and Plan Start: 01/08/18 13:37 Freq: Status: Active Protocol: Document 05/21/18 10:27 [facility] (Rec: 05/21/18 11:52 [facility] [id number]) Physical Therapy Assessment Rehab Potential Rehabilitation Potential Good Impairments Impairments Activity Tolerance Functional Activities Pain Posture ROM Soft Tissue Mobility Strength Goals strength Impairment strength Short Term Goal (STG) indep with HEP STG Duration Usp Goal (LTG) 5/5 UE strength to allow pt to do gardening & house activities without pain. LTG Duration 07/21/18 Two Impairment ROM Short Term Goal (STG) Pt will be able to open and close jaw without deviations STG Duration achieved Assistant Pressman Goal (LTG) WNL cervical ROM to allow pt to do ADLs without pain or difficulty and report no difficulty with driving LTG Duration 07/21/18 One Impairment clicking Short Term Goal (STG) No soft tissue restrictions of jaw mm allowing improved motion of TMJ STG Duration achieved Usp Goal (LTG) Pt will report no clicking of jaw with eating. LTG Duration achieved Assessment Summary Assessment Pt has significant improvement with jaw pain with no further issue. Pt presents with chronic neck pain for treatment with significant ROM and strength deficits. Physical Therapy Plan Frequency and Duration Frequency of Treatment 1-2x/Week Duration of Treatment 2 months Plan of Care Start Date 05/21/18 Plan of Care End Date 07/21/18 Therapeutic Interventions Therapeutic Interventions Aquatic Therapy Home Exercise Program Joint Mobilizations Manual Therapy Neuromuscular Re-education Soft Tissue Mobilization Taping Therapeutic Activities Therapeutic Exercises Modalities Cold Pack/Ice Massage Electric Stimulation Hot Packs Iontophoresis Traction- Mechanical Ultrasound Next Visit Focus/Plan Next Note Type Treatment Note Next Visit Plan progress scapular stability, scapular PNF, Soft tissue to cervical region
--- NOTE | 2018-05-21 11:54 | PT.OPPOC ---
Current Diagnoses Other specified disorders of temporomandibular joint (05/21/18) Provider Visit Care Team Role Provider Type ELSIE Martinez Primary Care Provider Non-Staff Specialty: Medical Address: [address] [place] [address], [phone] Email: Hugh Dallas MD Attending Provider Physician Specialty: Ear, Nose, Throat Address: [address] [place] [address], [phone] Email: Plan Of Care PT-OP-T Assessment and Plan Start: 01/08/18 13:37 Freq: Status: Active Protocol: Document 05/21/18 10:27 [facility] (Rec: 05/21/18 11:52 [facility] [id number]) Physical Therapy Assessment Rehab Potential Rehabilitation Potential Good Impairments Impairments Activity Tolerance Functional Activities Pain Posture ROM Soft Tissue Mobility Strength Goals strength Impairment strength Short Term Goal (STG) indep with HEP STG Duration Advertising Copy Writer Goal (LTG) 5/5 UE strength to allow pt to do gardening & house activities without pain. LTG Duration 07/21/18 Two Impairment ROM Short Term Goal (STG) Pt will be able to open and close jaw without deviations STG Duration achieved [facility] Goal (LTG) WNL cervical ROM to allow pt to do ADLs without pain or difficulty and report no difficulty with driving LTG Duration 07/21/18 One Impairment clicking Short Term Goal (STG) No soft tissue restrictions of jaw mm allowing improved motion of TMJ STG Duration achieved [facility] Goal (LTG) Pt will report no clicking of jaw with eating. LTG Duration achieved Assessment Summary Assessment Pt has significant improvement with jaw pain with no further issue. Pt presents with chronic neck pain for treatment with significant ROM and strength deficits. Physical Therapy Plan Frequency and Duration Frequency of Treatment 1-2x/Week Duration of Treatment 2 months Plan of Care Start Date 05/21/18 Plan of Care End Date 07/21/18 Therapeutic Interventions Therapeutic Interventions Aquatic Therapy Home Exercise Program Joint Mobilizations Manual Therapy Neuromuscular Re-education Soft Tissue Mobilization Taping Therapeutic Activities Therapeutic Exercises Modalities Cold Pack/Ice Massage Electric Stimulation Hot Packs Iontophoresis Traction- Mechanical Ultrasound Next Visit Focus/Plan Next Note Type Treatment Note Next Visit Plan progress scapular stability, scapular PNF, Soft tissue to cervical region Plan of Care Dates Plan of Care Start Date 05/21/18 Plan of Care End Date 07/21/18 Please Sign and Return: I have reviewed this Plan of Care and certify that the skilled therapy services above are required to meet the patient?s needs. Physician Signature Date Printed Name and Credentials Clinical Instructor Signature Printed Name and Credentials
--- NOTE | 2018-05-27 16:18 | PT.OTN ---
Current Diagnoses Other specified disorders of temporomandibular joint (05/27/18) Physical Therapy Treatment Note PT-OP-A Visit Information Start: 01/08/18 13:37 Freq: Status: Active Protocol: Document 05/27/18 12:08 ML (Rec: 05/27/18 12:15 ML [id number]) Out-Patient Physical Therapy Visit Information Visit Information Visit Type Treatment Note Visit Note 7 total visits Visit Start Time 11:20 Visit Stop Time 12:05 Total Visit Minutes 45 Visit Number 2/10 Number of RIB MATCHER AND FITTER Visits 0 PT-OP-B Current Condition Start: 01/08/18 13:37 Freq: Status: Active Protocol: Document 05/21/18 10:27 LR (Rec: 05/21/18 11:52 [facility] [id number]) Current Condition History of Current Condition Onset Date decades History of Current Condition Jaw is doing well and no more popping. Pt reports neck pain has lasted a couple decades. Reports she had a couple falls . One in 1999 where she hit her R side and R shoulder, back & neck [place] Reports a couple other falls that gave her a problem. Reports now neck pain into R> L shoulder. Dizziness has been better recently been d/t dec in BP meds. Has had some FARLEY but got sick a couple weeks ago and d/t not getting better she started antibotics. FARLEY was during feeling sick. Last one was 2 days ago. She thinks it may have to do with being still sick. Prior Treatments and Tests PT for TMD; chiropractor did x -rays last year- stopped seeing chiro during PT- gives temporary relief for about 1.5 days then tightens back up. When went in 3x/week and was feeling better when consistently going in. Treatment Goals Patient/Caregiver Goals Don't want pain to get worse, wants to have freedom to move head, doesn't want it to prevent her from driving, gardening & day to day activities. PT-OP-C Subjective Start: 01/08/18 13:37 Freq: Status: Active Protocol: Document 05/27/18 12:08 ML (Rec: 05/27/18 12:15 ML [id number]) OP-PT Subjective Patient Comments Patient Comments Pt reports that her HEP was going well but that she had a question about one exercise to check and make sure she was doing it appropriately. PT-OP-F Manual Assessment Start: 05/21/18 07:27 Freq: Status: Active Protocol: Document 05/21/18 10:27 [facility] (Rec: 05/21/18 11:52 [facility] [id number]) Manual Assessments Soft Tissue Assessment Soft Tissue Mobility Assessment tightness throughout the cervical region especially ant like scalenes & SCM; inc tightness of cervical parapsinals, UT, LS Joint Mobility Assessment Joint Mobility Assessment Dec thoracic rotation B; elevated 1st ribs B PT-OP-J Posture/Palpation/Skin Start: 01/08/18 13:37 Freq: Status: Active Protocol: Document 05/21/18 10:27 [facility] (Rec: 05/21/18 11:53 [facility] [id number]) Posture Evaluation Shawn Postural Classification System Shawn Postural Classifications Anterior/Posterior PT-OP-K Range of Motion Start: 01/08/18 13:37 Freq: Status: Active Protocol: Document 05/21/18 10:27 [facility] (Rec: 05/21/18 11:52 [facility] [id number]) Cervical Spine Range of Motion Cervical Spine Active Degrees Testing Position Sitting Flexion 40 Extension 32 Rotation Left 43 Rotation Right 50 Lateral Flexion Left 29 Lateral Flexion Right 26 Comments R lat tilt pain on R, L lat tilt no sx Shoulder Goniometric Range of Motion Shoulder ROM Limitations Comments pain w/R abd in R shoulder, pull in lats, but ROM WFL PT-OP-L Special Tests Start: 05/21/18 07:27 Freq: Status: Active Protocol: Document 05/21/18 10:27 [facility] (Rec: 05/21/18 11:52 [facility] [id number]) Special Tests Cervical Spine Special Tests Traction Test Results gives relief, feels good Vertebral Artery Test Results neg bilat spurlings L&R Test Results neg bilat compression Test Results neg Neural Special Tests- Upper Body radial n Test Results pos on R with end range, sx = pulling ulnar n Test Results neg bilat median n Test Results pos at 90 degrees abd on L, pos at 30 degrees abd on R passive abd Test Results pos on R at 90 degrees PT-OP-M Strength Start: 05/21/18 07:27 Freq: Status: Active Protocol: Document 05/21/18 10:27 [facility] (Rec: 05/21/18 11:52 [facility] [id number]) Shoulder Strength Shoulder Manual Muscle Testing L Flexion 4 Good Extension 4+ Good+ Abduction (C5) 4 Good External Rotation 4+ Good+ Internal Rotation 4+ Good+ R Flexion 4- Good- Extension 4 Good Abduction (C5) 3+ Fair+ External Rotation 4- Good- Internal Rotation 4- Good- Comments pain w/abd and IR PT-OP-Q Treatments Start: 01/08/18 13:37 Freq: Status: Active Protocol: Document 05/27/18 12:08 ML (Rec: 05/27/18 12:15 ML [id number]) Therapeutic Exercises Standing Exercises B ER Standing Exercise Name ER Equipment Used L2 Reps/Minutes 12 Comments focus on scapular retraction shoulder rows Standing Exercise Name row Equipment Used L2 Reps/Minutes 12 Comments focus on scapular retraction 1 Standing Exercise Name posture wall roll up Reps/Minutes reviewed 3-5x Comments cues for keeping spine against wall Manual Therapy Treatment Soft Tissue Mobilization 6 Body Location scalenes on R Comments assisted with chin tuck 3 Body Location SOR Mobilization Type Sustained Pressure 2 Body Location LS, UT & cervical paraspinals B Mobilization Type Rolling Neuro Re-Education Treatment Other Activities 1 Details R ant elevation and post depression of scapula Comments terminated about residential through ant elevation re- education due to neck tightness PT-OP-R Modalities Start: 01/08/18 13:37 Freq: Status: Active Protocol: Document 05/27/18 12:08 ML (Rec: 05/27/18 12:15 ML [email or web address]) Hot Pack/Cold Pack Treatment Hot Pack Location cervical Treatment Duration (minutes) 15 PT-OP-T Assessment and Plan Start: 01/08/18 13:37 Freq: Status: Active Protocol: Document 05/27/18 12:08 ML (Rec: 05/27/18 12:15 ML [email or web address]) Physical Therapy Assessment Goals strength Impairment strength Short Term Goal (STG) indep with HEP STG Duration Alf Goal (LTG) 5/5 UE strength to allow pt to do gardening & house activities without pain. LTG Duration 07/21/18 Two Impairment ROM Short Term Goal (STG) Pt will be able to open and close jaw without deviations STG Duration achieved Cocoa Roaster Goal (LTG) WNL cervical ROM to allow pt to do ADLs without pain or difficulty and report no difficulty with driving LTG Duration 07/21/18 Assessment Summary Assessment Pt was able to demonstrate her HEP with only minor adjustments. The pt did require manual cueing for scapular position and verbal cueing for how to set up her wall exercise. The pt was unable to achieve the PNF re- education without tightness in her neck which was addressed with soft tissue mobilization. Physical Therapy Plan Frequency and Duration Frequency of Treatment 1-2x/Week Duration of Treatment 2 months Plan of Care Start Date 05/21/18 Plan of Care End Date 07/21/18 Next Visit Focus/Plan Next Note Type Treatment Note Next Visit Plan progress scapular stability, scapular PNF, Soft tissue to cervical region
--- NOTE | 2018-05-30 15:59 | PT.OTN ---
Current Diagnoses Other specified disorders of temporomandibular joint (05/30/18) Physical Therapy Treatment Note PT-OP-A Visit Information Start: 01/08/18 13:37 Freq: Status: Active Protocol: Document 05/30/18 11:27 ML (Rec: 05/30/18 11:34 ML [id number]) Out-Patient Physical Therapy Visit Information Visit Information Visit Type Treatment Note Visit Note 8 total visits Visit Start Time 09:45 Visit Stop Time 10:45 Total Visit Minutes 60 Visit Number 3/ Number of VARYING EXCEPTIONALITIES TEACHER Visits 0 PT-OP-B Current Condition Start: 01/08/18 13:37 Freq: Status: Active Protocol: Document 05/21/18 10:27 [facility] (Rec: 05/21/18 11:52 [facility] [id number]) Current Condition History of Current Condition Onset Date decades History of Current Condition Jaw is doing well and no more popping. Pt reports neck pain has lasted a couple decades. Reports she had a couple falls . One in 1999 where she hit her R side and R shoulder, back & neck [place] Reports a couple other falls that gave her a problem. Reports now neck pain into R> L shoulder. Dizziness has been better recently been d/t dec in BP meds. Has had some FARLEY but got sick a couple weeks ago and d/t not getting better she started antibotics. FARLEY was during feeling sick. Last one was 2 days ago. She thinks it may have to do with being still sick. Prior Treatments and Tests PT for TMD; chiropractor did x -rays last year- stopped seeing chiro during PT- gives temporary relief for about 1.5 days then tightens back up. When went in 3x/week and was feeling better when consistently going in. Treatment Goals Patient/Caregiver Goals Don't want pain to get worse, wants to have freedom to move head, doesn't want it to prevent her from driving, gardening & day to day activities. PT-OP-C Subjective Start: 01/08/18 13:37 Freq: Status: Active Protocol: Document 05/30/18 11:27 ML (Rec: 05/30/18 11:34 ML [id number]) OP-PT Subjective Patient Comments Patient Comments Pt reports that she noted the soft tissue work that was done last treatment and she really thinks it is going to help. PT-OP-F Manual Assessment Start: 05/21/18 07:27 Freq: Status: Active Protocol: Document 05/21/18 10:27 [facility] (Rec: 05/21/18 11:52 [facility] [id number]) Manual Assessments Soft Tissue Assessment Soft Tissue Mobility Assessment tightness throughout the cervical region especially ant like scalenes & SCM; inc tightness of cervical parapsinals, UT, LS Joint Mobility Assessment Joint Mobility Assessment Dec thoracic rotation B; elevated 1st ribs B PT-OP-J Posture/Palpation/Skin Start: 01/08/18 13:37 Freq: Status: Active Protocol: Document 05/21/18 10:27 [facility] (Rec: 05/21/18 11:53 [facility] [id number]) Posture Evaluation Shawn Postural Classification System Shawn Postural Classifications Anterior/Posterior PT-OP-K Range of Motion Start: 01/08/18 13:37 Freq: Status: Active Protocol: Document 05/21/18 10:27 [facility] (Rec: 05/21/18 11:52 [facility] [id number]) Cervical Spine Range of Motion Cervical Spine Active Degrees Testing Position Sitting Flexion 40 Extension 32 Rotation Left 43 Rotation Right 50 Lateral Flexion Left 29 Lateral Flexion Right 26 Comments R lat tilt pain on R, L lat tilt no sx Shoulder Goniometric Range of Motion Shoulder ROM Limitations Comments pain w/R abd in R shoulder, pull in lats, but ROM WFL PT-OP-L Special Tests Start: 05/21/18 07:27 Freq: Status: Active Protocol: Document 05/21/18 10:27 [facility] (Rec: 05/21/18 11:52 [facility] [id number]) Special Tests Cervical Spine Special Tests Traction Test Results gives relief, feels good Vertebral Artery Test Results neg bilat spurlings L&R Test Results neg bilat compression Test Results neg Neural Special Tests- Upper Body radial n Test Results pos on R with end range, sx = pulling ulnar n Test Results neg bilat median n Test Results pos at 90 degrees abd on L, pos at 30 degrees abd on R passive abd Test Results pos on R at 90 degrees PT-OP-M Strength Start: 05/21/18 07:27 Freq: Status: Active Protocol: Document 05/21/18 10:27 [facility] (Rec: 05/21/18 11:52 [facility] [id number]) Shoulder Strength Shoulder Manual Muscle Testing L Flexion 4 Good Extension 4+ Good+ Abduction (C5) 4 Good External Rotation 4+ Good+ Internal Rotation 4+ Good+ R Flexion 4- Good- Extension 4 Good Abduction (C5) 3+ Fair+ External Rotation 4- Good- Internal Rotation 4- Good- Comments pain w/abd and IR PT-OP-Q Treatments Start: 01/08/18 13:37 Freq: Status: Active Protocol: Document 05/30/18 11:27 ML (Rec: 05/30/18 11:34 ML [id number]) Therapeutic Exercises Standing Exercises 4 Standing Exercise Name bilateral flexion w/slight abd Resistance lvl 2 Comments cues for only about 45 degree range; slight abd to neutral position B ER Standing Exercise Name ER Equipment Used L2 Reps/Minutes 12 Comments reviewed, focus on scapular retraction shoulder rows Standing Exercise Name row Equipment Used L2 Reps/Minutes 12 Comments reviewed, then added elbow extension; focus on scapular retraction Other Exercises 1 Other Exercise Name scapular positioning in quadruped Comments started with propped on elbows ; then quadruped w/trunk perturbations Neuro Re-Education Treatment Other Activities 1 Details L ant elevation and post depression of scapula Comments isotonics at end ranges, rhythmic initiation and combination of isometrics Self-Care/Home Management Treatment Education Patient Education Posture Other Education standing posture PT-OP-R Modalities Start: 01/08/18 13:37 Freq: Status: Active Protocol: Document 05/30/18 11:27 ML (Rec: 05/30/18 11:34 ML [id number]) Hot Pack/Cold Pack Treatment Hot Pack Location cervical Treatment Duration (minutes) 15 PT-OP-T Assessment and Plan Start: 01/08/18 13:37 Freq: Status: Active Protocol: Document 05/30/18 11:27 ML (Rec: 05/30/18 11:34 ML [id number]) Physical Therapy Assessment Goals strength Impairment strength Short Term Goal (STG) indep with HEP STG Duration Respiratory Scientist Goal (LTG) 5/5 UE strength to allow pt to do gardening & house activities without pain. LTG Duration 07/21/18 Two Impairment ROM Short Term Goal (STG) Pt will be able to open and close jaw without deviations STG Duration achieved Respiratory Scientist Goal (LTG) WNL cervical ROM to allow pt to do ADLs without pain or difficulty and report no difficulty with driving LTG Duration 07/21/18 Assessment Summary Assessment Pt improved her scapular control through exercises although she still had some UT activation that was reduced with verbal and tactile cueing . The pt was able to be re- educated through her scapula on L without pain and was able to engage in a re-education exercise in quadruped to do at home. Physical Therapy Plan Frequency and Duration Frequency of Treatment 1-2x/Week Duration of Treatment 2 months Plan of Care Start Date 05/21/18 Plan of Care End Date 07/21/18 Next Visit Focus/Plan Next Note Type Treatment Note Next Visit Plan check progressed exercises, scap PNF on L; soft tissue prn
--- NOTE | 2018-06-03 14:37 | PT.OTN ---
Current Diagnoses Other specified disorders of temporomandibular joint (06/03/18) Physical Therapy Treatment Note PT-OP-A Visit Information Start: 01/08/18 13:37 Freq: Status: Active Protocol: Document 06/03/18 13:51 ML (Rec: 06/03/18 14:06 ML [id number]) Out-Patient Physical Therapy Visit Information Visit Information Visit Type Treatment Note Visit Note 8 total visits Visit Start Time 13:00 Visit Stop Time 13:58 Total Visit Minutes 58 Visit Number 4/10 Number of FIELD APPRAISER Visits 0 PT-OP-B Current Condition Start: 01/08/18 13:37 Freq: Status: Active Protocol: Document 05/21/18 10:27 [facility] (Rec: 05/21/18 11:52 [facility] [id number]) Current Condition History of Current Condition Onset Date decades History of Current Condition Jaw is doing well and no more popping. Pt reports neck pain has lasted a couple decades. Reports she had a couple falls . One in 1999 where she hit her R side and R shoulder, back & neck [place] Reports a couple other falls that gave her a problem. Reports now neck pain into R> L shoulder. Dizziness has been better recently been d/t dec in BP meds. Has had some FARLEY but got sick a couple weeks ago and d/t not getting better she started antibotics. FARLEY was during feeling sick. Last one was 2 days ago. She thinks it may have to do with being still sick. Prior Treatments and Tests PT for TMD; chiropractor did x -rays last year- stopped seeing chiro during PT- gives temporary relief for about 1.5 days then tightens back up. When went in 3x/week and was feeling better when consistently going in. Treatment Goals Patient/Caregiver Goals Don't want pain to get worse, wants to have freedom to move head, doesn't want it to prevent her from driving, gardening & day to day activities. PT-OP-C Subjective Start: 01/08/18 13:37 Freq: Status: Active Protocol: Document 06/03/18 13:51 ML (Rec: 06/03/18 14:06 ML [id number]) OP-PT Subjective Patient Comments Patient Comments Pt reported that her neck/back has been sore lately, but she believes this is a thing that comes and goes and has happened in the past. PT-OP-F Manual Assessment Start: 05/21/18 07:27 Freq: Status: Active Protocol: Document 05/21/18 10:27 [facility] (Rec: 05/21/18 11:52 [facility] [id number]) Manual Assessments Soft Tissue Assessment Soft Tissue Mobility Assessment tightness throughout the cervical region especially ant like scalenes & SCM; inc tightness of cervical parapsinals, UT, LS Joint Mobility Assessment Joint Mobility Assessment Dec thoracic rotation B; elevated 1st ribs B PT-OP-J Posture/Palpation/Skin Start: 01/08/18 13:37 Freq: Status: Active Protocol: Document 05/21/18 10:27 [facility] (Rec: 05/21/18 11:53 [facility] [id number]) Posture Evaluation Shawn Postural Classification System Shawn Postural Classifications Anterior/Posterior PT-OP-K Range of Motion Start: 01/08/18 13:37 Freq: Status: Active Protocol: Document 05/21/18 10:27 [facility] (Rec: 05/21/18 11:52 [facility] [id number]) Cervical Spine Range of Motion Cervical Spine Active Degrees Testing Position Sitting Flexion 40 Extension 32 Rotation Left 43 Rotation Right 50 Lateral Flexion Left 29 Lateral Flexion Right 26 Comments R lat tilt pain on R, L lat tilt no sx Shoulder Goniometric Range of Motion Shoulder ROM Limitations Comments pain w/R abd in R shoulder, pull in lats, but ROM WFL PT-OP-L Special Tests Start: 05/21/18 07:27 Freq: Status: Active Protocol: Document 05/21/18 10:27 [facility] (Rec: 05/21/18 11:52 [facility] [id number]) Special Tests Cervical Spine Special Tests Traction Test Results gives relief, feels good Vertebral Artery Test Results neg bilat spurlings L&R Test Results neg bilat compression Test Results neg Neural Special Tests- Upper Body radial n Test Results pos on R with end range, sx = pulling ulnar n Test Results neg bilat median n Test Results pos at 90 degrees abd on L, pos at 30 degrees abd on R passive abd Test Results pos on R at 90 degrees PT-OP-M Strength Start: 05/21/18 07:27 Freq: Status: Active Protocol: Document 05/21/18 10:27 [facility] (Rec: 05/21/18 11:52 [facility] [id number]) Shoulder Strength Shoulder Manual Muscle Testing L Flexion 4 Good Extension 4+ Good+ Abduction (C5) 4 Good External Rotation 4+ Good+ Internal Rotation 4+ Good+ R Flexion 4- Good- Extension 4 Good Abduction (C5) 3+ Fair+ External Rotation 4- Good- Internal Rotation 4- Good- Comments pain w/abd and IR PT-OP-Q Treatments Start: 01/08/18 13:37 Freq: Status: Active Protocol: Document 06/03/18 13:51 ML (Rec: 06/03/18 14:06 ML [id number]) Therapeutic Exercises Supine Exercises 2 Supine Exercise Name core stabilization Comments knees to chest w/UE resistance Manual Therapy Treatment Soft Tissue Mobilization 3 Body Location SOR Mobilization Type Sustained Pressure 2 Body Location LS, UT & cervical paraspinals L Mobilization Type Rolling Joint Mobilizations 2 Joint 1 rib L Direction caudal Comments with active contralat lat neck flex Self-Care/Home Management Treatment Education Patient Education Posture Other Education standing and sitting posture as well as appropriate support Activities Self-Care/Home Management Activities sleeping positioning and about looking into a sleep study PT-OP-R Modalities Start: 01/08/18 13:37 Freq: Status: Active Protocol: Document 06/03/18 13:51 ML (Rec: 06/03/18 14:06 ML [id number]) Hot Pack/Cold Pack Treatment Hot Pack Location cervical and lumbar Treatment Duration (minutes) 10 PT-OP-T Assessment and Plan Start: 01/08/18 13:37 Freq: Status: Active Protocol: Document 06/03/18 13:51 ML (Rec: 06/03/18 14:06 ML [id number]) Physical Therapy Assessment Goals strength Impairment strength Short Term Goal (STG) indep with HEP STG Duration Alf Goal (LTG) 5/5 UE strength to allow pt to do gardening & house activities without pain. LTG Duration 07/21/18 Two Impairment ROM Short Term Goal (STG) Pt will be able to open and close jaw without deviations STG Duration achieved Alf Goal (LTG) WNL cervical ROM to allow pt to do ADLs without pain or difficulty and report no difficulty with driving LTG Duration 07/21/18 Assessment Summary Assessment Pt's muscular tightness was improved with manual therapy today. Pt was able to achieve more neutral posture with less correction than in the past, although sitting posture was a new position to address with pt. Pt's sleeping position was also addressed and appropriate adjustments were made with towel and pillow support. Physical Therapy Plan Frequency and Duration Frequency of Treatment 1-2x/Week Duration of Treatment 2 months Plan of Care Start Date 05/21/18 Plan of Care End Date 07/21/18 Next Visit Focus/Plan Next Note Type Treatment Note Next Visit Plan check back and neck pain (L); progress exercises; scap PNF on L; soft tissue prn
--- NOTE | 2018-06-06 16:01 | PT.OTN ---
Current Diagnoses Other specified disorders of temporomandibular joint (06/06/18) Physical Therapy Treatment Note PT-OP-A Visit Information Start: 01/08/18 13:37 Freq: Status: Active Protocol: Document 06/06/18 15:48 ML (Rec: 06/06/18 15:58 ML [id number]) Out-Patient Physical Therapy Visit Information Visit Information Visit Type Treatment Note Visit Note 8 total visits Visit Start Time 13:45 Visit Stop Time 14:45 Total Visit Minutes 60 Visit Number 5/10 Number of WHEEL ALIGNER Visits 0 PT-OP-B Current Condition Start: 01/08/18 13:37 Freq: Status: Active Protocol: Document 05/21/18 10:27 [facility] (Rec: 05/21/18 11:52 [facility] [id number]) Current Condition History of Current Condition Onset Date decades History of Current Condition Jaw is doing well and no more popping. Pt reports neck pain has lasted a couple decades. Reports she had a couple falls . One in 1999 where she hit her R side and R shoulder, back & neck [place]. Reports a couple other falls that gave her a problem. Reports now neck pain into R> L shoulder. Dizziness has been better recently been d/t dec in BP meds. Has had some FARLEY but got sick a couple weeks ago and d/t not getting better she started antibotics. FARLEY was during feeling sick. Last one was 2 days ago. She thinks it may have to do with being still sick. Prior Treatments and Tests PT for TMD; chiropractor did x -rays last year- stopped seeing chiro during PT- gives temporary relief for about 1.5 days then tightens back up. When went in 3x/week and was feeling better when consistently going in. Treatment Goals Patient/Caregiver Goals Don't want pain to get worse, wants to have freedom to move head, doesn't want it to prevent her from driving, gardening & day to day activities. PT-OP-C Subjective Start: 01/08/18 13:37 Freq: Status: Active Protocol: Document 06/06/18 15:48 ML (Rec: 06/06/18 15:58 ML [id number]) OP-PT Subjective Patient Comments Patient Comments Pt notes that she feels better after the soft tissue work during the last treatment. PT-OP-F Manual Assessment Start: 05/21/18 07:27 Freq: Status: Active Protocol: Document 05/21/18 10:27 [facility] (Rec: 05/21/18 11:52 [facility] [id number]) Manual Assessments Soft Tissue Assessment Soft Tissue Mobility Assessment tightness throughout the cervical region especially ant like scalenes & SCM; inc tightness of cervical parapsinals, UT, LS Joint Mobility Assessment Joint Mobility Assessment Dec thoracic rotation B; elevated 1st ribs B PT-OP-J Posture/Palpation/Skin Start: 01/08/18 13:37 Freq: Status: Active Protocol: Document 05/21/18 10:27 [facility] (Rec: 05/21/18 11:53 [facility] [id number]) Posture Evaluation Shawn Postural Classification System Shawn Postural Classifications Anterior/Posterior PT-OP-K Range of Motion Start: 01/08/18 13:37 Freq: Status: Active Protocol: Document 05/21/18 10:27 [facility] (Rec: 05/21/18 11:52 [facility] [id number]) Cervical Spine Range of Motion Cervical Spine Active Degrees Testing Position Sitting Flexion 40 Extension 32 Rotation Left 43 Rotation Right 50 Lateral Flexion Left 29 Lateral Flexion Right 26 Comments R lat tilt pain on R, L lat tilt no sx Shoulder Goniometric Range of Motion Shoulder ROM Limitations Comments pain w/R abd in R shoulder, pull in lats, but ROM WFL PT-OP-L Special Tests Start: 05/21/18 07:27 Freq: Status: Active Protocol: Document 05/21/18 10:27 [facility] (Rec: 05/21/18 11:52 [facility] [id number]) Special Tests Cervical Spine Special Tests Traction Test Results gives relief, feels good Vertebral Artery Test Results neg bilat spurlings L&R Test Results neg bilat compression Test Results neg Neural Special Tests- Upper Body radial n Test Results pos on R with end range, sx = pulling ulnar n Test Results neg bilat median n Test Results pos at 90 degrees abd on L, pos at 30 degrees abd on R passive abd Test Results pos on R at 90 degrees PT-OP-M Strength Start: 05/21/18 07:27 Freq: Status: Active Protocol: Document 05/21/18 10:27 [facility] (Rec: 05/21/18 11:52 [facility] [id number]) Shoulder Strength Shoulder Manual Muscle Testing L Flexion 4 Good Extension 4+ Good+ Abduction (C5) 4 Good External Rotation 4+ Good+ Internal Rotation 4+ Good+ R Flexion 4- Good- Extension 4 Good Abduction (C5) 3+ Fair+ External Rotation 4- Good- Internal Rotation 4- Good- Comments pain w/abd and IR PT-OP-Q Treatments Start: 01/08/18 13:37 Freq: Status: Active Protocol: Document 06/06/18 15:48 ML (Rec: 06/06/18 15:58 ML [id number]) Therapeutic Exercises Standing Exercises abd Standing Exercise Name abd in small range Side bilateral Resistance L1 Equipment Used mirror Comments tactile and verbal cues; focus on not activating UT and staying in sm range B ER Standing Exercise Name ER Equipment Used L2 Reps/Minutes 12 Comments reviewed, focus on scapular retraction shoulder rows Standing Exercise Name row Equipment Used L2 Reps/Minutes 12 Comments reviewed, then added elbow extension; focus on scapular retraction Other Exercises 1 Other Exercise Name scapular positioning in quadruped Comments improved, but still required cues for depression; able to alt lift UE Manual Therapy Treatment Soft Tissue Mobilization 2 Body Location LS, UT & scalenes Mobilization Type Myofascial Release Rolling Sustained Pressure Comments bilat 1 Body Location coracobrachialis & biceps brachii Mobilization Type Myofascial Release Rolling Sustained Pressure Intensity/Depth Moderate Body Position Supine Comments L; active supin/pron and elbow flex/ext PT-OP-R Modalities Start: 01/08/18 13:37 Freq: Status: Active Protocol: Document 06/06/18 15:48 ML (Rec: 06/06/18 15:58 ML [id number]) Hot Pack/Cold Pack Treatment Hot Pack Location cervical & L shoulder Treatment Duration (minutes) 10 PT-OP-T Assessment and Plan Start: 01/08/18 13:37 Freq: Status: Active Protocol: Document 06/06/18 15:48 ML (Rec: 06/06/18 15:58 ML [id number]) Physical Therapy Assessment Goals strength Impairment strength Short Term Goal (STG) indep with HEP STG Duration Broom Bundler Goal (LTG) 5/5 UE strength to allow pt to do gardening & house activities without pain. LTG Duration 07/21/18 Two Impairment ROM Short Term Goal (STG) Pt will be able to open and close jaw without deviations STG Duration achieved Shelter Goal (LTG) WNL cervical ROM to allow pt to do ADLs without pain or difficulty and report no difficulty with driving LTG Duration 07/21/18 Assessment Summary Assessment Pt reported to PT feeling better than the last visit. Pt was able to demonstrate appropriate control through previously assigned HEP. Upon progression and additional exercises, pt required inc correction, but was able to achieve desired motion. Pt improved in her scapular positon during quadruped exercise, but is unable to acheive the exact desired motion without cueing. Pt was tight through her L UE and UT/ LS and scalenes bilat which was address manually. Physical Therapy Plan Frequency and Duration Frequency of Treatment 1-2x/Week Duration of Treatment 2 months Plan of Care Start Date 05/21/18 Plan of Care End Date 07/21/18 Next Visit Focus/Plan Next Note Type Treatment Note Next Visit Plan check ribs; check UE and neck pain (L); review progressed exercises (abd); scap PNF on L
--- NOTE | 2018-06-10 16:29 | PT.OTN ---
Current Diagnoses Other specified disorders of temporomandibular joint (06/10/18) Physical Therapy Treatment Note PT-OP-A Visit Information Start: 01/08/18 13:37 Freq: Status: Active Protocol: Document 06/10/18 16:07 ML (Rec: 06/10/18 16:17 ML [id number]) Out-Patient Physical Therapy Visit Information Visit Information Visit Type Treatment Note Visit Note 9 total visits Visit Start Time 13:03 Visit Stop Time 14:00 Total Visit Minutes 58 Visit Number 6/ Number of CORNER CUTTER MACHINE OPERATOR Visits 0 PT-OP-B Current Condition Start: 01/08/18 13:37 Freq: Status: Active Protocol: Document 05/21/18 10:27 [facility] (Rec: 05/21/18 11:52 [facility] [id number]) Current Condition History of Current Condition Onset Date decades History of Current Condition Jaw is doing well and no more popping. Pt reports neck pain has lasted a couple decades. Reports she had a couple falls . One in 1999 where she hit her R side and R shoulder, back & neck [place] Reports a couple other falls that gave her a problem. Reports now neck pain into R> L shoulder. Dizziness has been better recently been d/t dec in BP meds. Has had some FARLEY but got sick a couple weeks ago and d/t not getting better she started antibotics. FARLEY was during feeling sick. Last one was 2 days ago. She thinks it may have to do with being still sick. Prior Treatments and Tests PT for TMD; chiropractor did x -rays last year- stopped seeing chiro during PT- gives temporary relief for about 1.5 days then tightens back up. When went in 3x/week and was feeling better when consistently going in. Treatment Goals Patient/Caregiver Goals Don't want pain to get worse, wants to have freedom to move head, doesn't want it to prevent her from driving, gardening & day to day activities. PT-OP-C Subjective Start: 01/08/18 13:37 Freq: Status: Active Protocol: Document 06/10/18 16:07 ML (Rec: 06/10/18 16:17 ML [email or web address]) OP-PT Subjective Patient Comments Patient Comments Pt noted that after last treatment she had little-no pain symptoms. PT-OP-F Manual Assessment Start: 05/21/18 07:27 Freq: Status: Active Protocol: Document 05/21/18 10:27 [facility] (Rec: 05/21/18 11:52 [facility] [id number]) Manual Assessments Soft Tissue Assessment Soft Tissue Mobility Assessment tightness throughout the cervical region especially ant like scalenes & SCM; inc tightness of cervical parapsinals, UT, LS Joint Mobility Assessment Joint Mobility Assessment Dec thoracic rotation B; elevated 1st ribs B PT-OP-J Posture/Palpation/Skin Start: 01/08/18 13:37 Freq: Status: Active Protocol: Document 05/21/18 10:27 [facility] (Rec: 05/21/18 11:53 [facility] [id number]) Posture Evaluation [facility] Postural Classification System Shawn Postural Classifications Anterior/Posterior PT-OP-K Range of Motion Start: 01/08/18 13:37 Freq: Status: Active Protocol: Document 05/21/18 10:27 [facility] (Rec: 05/21/18 11:52 [facility] [id number]) Cervical Spine Range of Motion Cervical Spine Active Degrees Testing Position Sitting Flexion 40 Extension 32 Rotation Left 43 Rotation Right 50 Lateral Flexion Left 29 Lateral Flexion Right 26 Comments R lat tilt pain on R, L lat tilt no sx Shoulder Goniometric Range of Motion Shoulder ROM Limitations Comments pain w/R abd in R shoulder, pull in lats, but ROM WFL PT-OP-L Special Tests Start: 05/21/18 07:27 Freq: Status: Active Protocol: Document 05/21/18 10:27 [facility] (Rec: 05/21/18 11:52 [facility] [id number]) Special Tests Cervical Spine Special Tests Traction Test Results gives relief, feels good Vertebral Artery Test Results neg bilat spurlings L&R Test Results neg bilat compression Test Results neg Neural Special Tests- Upper Body radial n Test Results pos on R with end range, sx = pulling ulnar n Test Results neg bilat median n Test Results pos at 90 degrees abd on L, pos at 30 degrees abd on R passive abd Test Results pos on R at 90 degrees PT-OP-M Strength Start: 05/21/18 07:27 Freq: Status: Active Protocol: Document 05/21/18 10:27 [facility] (Rec: 05/21/18 11:52 [facility] [id number]) Shoulder Strength Shoulder Manual Muscle Testing L Flexion 4 Good Extension 4+ Good+ Abduction (C5) 4 Good External Rotation 4+ Good+ Internal Rotation 4+ Good+ R Flexion 4- Good- Extension 4 Good Abduction (C5) 3+ Fair+ External Rotation 4- Good- Internal Rotation 4- Good- Comments pain w/abd and IR PT-OP-Q Treatments Start: 01/08/18 13:37 Freq: Status: Active Protocol: Document 06/10/18 16:07 ML (Rec: 06/10/18 16:17 ML [email or web address]) Therapeutic Exercises Supine Exercises 1 Supine Exercise Name chin tucks Comments tactile cues; corrected head position to dec neck flex; HEP Standing Exercises abd Standing Exercise Name abd in small range Side bilateral Resistance L1 Equipment Used mirror Comments tactile and verbal cues; focus on not activating UT and staying in sm range Other Exercises 1 Other Exercise Name scapular positioning in quadruped Comments alt lift flex; alt lift abd; HEP; improved Manual Therapy Treatment Soft Tissue Mobilization 2 Body Location LS, UT & scalenes Mobilization Type Myofascial Release Rolling Sustained Pressure Comments bilat; w/active chin tuck 1 Body Location coracobrachialis & biceps brachii Mobilization Type Myofascial Release Rolling Sustained Pressure Intensity/Depth Moderate Body Position Supine Comments L; active supin/pron and elbow flex/ext Joint Mobilizations 2 Joint 1 rib L Direction caudal Comments with active contralat lat neck flex PT-OP-R Modalities Start: 01/08/18 13:37 Freq: Status: Active Protocol: Document 06/10/18 16:07 ML (Rec: 06/10/18 16:17 ML [email or web address]) Hot Pack/Cold Pack Treatment Hot Pack Location cervical & L shoulder Treatment Duration (minutes) 10 PT-OP-T Assessment and Plan Start: 01/08/18 13:37 Freq: Status: Active Protocol: Document 06/10/18 16:07 ML (Rec: 06/10/18 16:17 ML [email or web address]) Physical Therapy Assessment Goals strength Impairment strength Short Term Goal (STG) indep with HEP STG Duration Mcfp Goal (LTG) 5/5 UE strength to allow pt to do gardening & house activities without pain. LTG Duration 07/21/18 Two Impairment ROM Short Term Goal (STG) Pt will be able to open and close jaw without deviations STG Duration achieved [employer] Goal (LTG) WNL cervical ROM to allow pt to do ADLs without pain or difficulty and report no difficulty with driving LTG Duration 07/21/18 Assessment Summary Assessment Pt showed significant improvement in her ability to stabilize her scapula, perform UE movement without incorrect muscle activation, and maintaining appropriate posture. Pt was able to position herself in quadruped without scapular positioning corection and add in arm motion. Pt stated that her symptoms have significantly dec and she hasn't really noted much of anything. Pt was progressed through her HEP exercises and reviewed and corrected her chin tuck exercise for posture that she stated she had not been doing at home. Pt continued to have tightness through her neck and UE region on L, as well as an elevated first rib on L, that was addressed with manual. Physical Therapy Plan Frequency and Duration Frequency of Treatment 1-2x/Week Duration of Treatment 2 months Plan of Care Start Date 05/21/18 Plan of Care End Date 07/21/18 Next Visit Focus/Plan Next Note Type Treatment Note Next Visit Plan check aggravating activity report; check ribs; check UE and neck pain (L); review progressed exercises (abd, quad w/arms and chin tuck); scap PNF on L
--- NOTE | 2018-06-17 16:35 | PT.OTN ---
Current Diagnoses Other specified disorders of temporomandibular joint (06/17/18) Physical Therapy Treatment Note PT-OP-A Visit Information Start: 01/08/18 13:37 Freq: Status: Active Protocol: Document 06/17/18 13:44 ML (Rec: 06/17/18 13:46 ML [id number]) Out-Patient Physical Therapy Visit Information Visit Information Visit Type Treatment Note Visit Note 9 total visits Visit Start Time 13:03 Visit Stop Time 14:00 Total Visit Minutes 57 Visit Number 7 Number of GYMNASIUM TEACHER Visits 0 PT-OP-B Current Condition Start: 01/08/18 13:37 Freq: Status: Active Protocol: Document 05/21/18 10:27 [facility] (Rec: 05/21/18 11:52 [facility] [id number]) Current Condition History of Current Condition Onset Date decades History of Current Condition Jaw is doing well and no more popping. Pt reports neck pain has lasted a couple decades. Reports she had a couple falls . One in 1999 where she hit her R side and R shoulder, back & neck [place] Reports a couple other falls that gave her a problem. Reports now neck pain into R> L shoulder. Dizziness has been better recently been d/t dec in BP meds. Has had some FARLEY but got sick a couple weeks ago and d/t not getting better she started antibotics. FARLEY was during feeling sick. Last one was 2 days ago. She thinks it may have to do with being still sick. Prior Treatments and Tests PT for TMD; chiropractor did x -rays last year- stopped seeing chiro during PT- gives temporary relief for about 1.5 days then tightens back up. When went in 3x/week and was feeling better when consistently going in. Treatment Goals Patient/Caregiver Goals Don't want pain to get worse, wants to have freedom to move head, doesn't want it to prevent her from driving, gardening & day to day activities. PT-OP-C Subjective Start: 01/08/18 13:37 Freq: Status: Active Protocol: Document 06/17/18 13:44 ML (Rec: 06/17/18 16:18 ML [email or web address]) OP-PT Subjective Patient Comments Patient Comments Pt notes that she gets pain on her R when she flexes then horiz abd arm. PT-OP-F Manual Assessment Start: 05/21/18 07:27 Freq: Status: Active Protocol: Document 05/21/18 10:27 [facility] (Rec: 05/21/18 11:52 [facility] [id number]) Manual Assessments Soft Tissue Assessment Soft Tissue Mobility Assessment tightness throughout the cervical region especially ant like scalenes & SCM; inc tightness of cervical parapsinals, UT, LS Joint Mobility Assessment Joint Mobility Assessment Dec thoracic rotation B; elevated 1st ribs B PT-OP-J Posture/Palpation/Skin Start: 01/08/18 13:37 Freq: Status: Active Protocol: Document 05/21/18 10:27 [facility] (Rec: 05/21/18 11:53 [facility] [id number]) Posture Evaluation Shawn Postural Classification System Shawn Postural Classifications Anterior/Posterior PT-OP-K Range of Motion Start: 01/08/18 13:37 Freq: Status: Active Protocol: Document 05/21/18 10:27 [facility] (Rec: 05/21/18 11:52 [facility] [id number]) Cervical Spine Range of Motion Cervical Spine Active Degrees Testing Position Sitting Flexion 40 Extension 32 Rotation Left 43 Rotation Right 50 Lateral Flexion Left 29 Lateral Flexion Right 26 Comments R lat tilt pain on R, L lat tilt no sx Shoulder Goniometric Range of Motion Shoulder ROM Limitations Comments pain w/R abd in R shoulder, pull in lats, but ROM WFL PT-OP-L Special Tests Start: 05/21/18 07:27 Freq: Status: Active Protocol: Document 05/21/18 10:27 [facility] (Rec: 05/21/18 11:52 [facility] [id number]) Special Tests Cervical Spine Special Tests Traction Test Results gives relief, feels good Vertebral Artery Test Results neg bilat spurlings L&R Test Results neg bilat compression Test Results neg Neural Special Tests- Upper Body radial n Test Results pos on R with end range, sx = pulling ulnar n Test Results neg bilat median n Test Results pos at 90 degrees abd on L, pos at 30 degrees abd on R passive abd Test Results pos on R at 90 degrees PT-OP-M Strength Start: 05/21/18 07:27 Freq: Status: Active Protocol: Document 05/21/18 10:27 [facility] (Rec: 05/21/18 11:52 [facility] [id number]) Shoulder Strength Shoulder Manual Muscle Testing L Flexion 4 Good Extension 4+ Good+ Abduction (C5) 4 Good External Rotation 4+ Good+ Internal Rotation 4+ Good+ R Flexion 4- Good- Extension 4 Good Abduction (C5) 3+ Fair+ External Rotation 4- Good- Internal Rotation 4- Good- Comments pain w/abd and IR PT-OP-Q Treatments Start: 01/08/18 13:37 Freq: Status: Active Protocol: Document 06/17/18 13:44 ML (Rec: 06/17/18 16:18 ML [email or web address]) Manual Therapy Treatment Soft Tissue Mobilization 2 Body Location LS, UT & scalenes Mobilization Type Myofascial Release Rolling Sustained Pressure Comments bilat; w/active chin tuck and lat head tilt Joint Mobilizations GH Joint R GH Direction inf and post Comments with active adduction for inf and horiz abd for post 1 Joint AC Comments with active chin tuck PT-OP-R Modalities Start: 01/08/18 13:37 Freq: Status: Active Protocol: Document 06/17/18 13:44 ML (Rec: 06/17/18 16:18 ML [email or web address]) Hot Pack/Cold Pack Treatment Hot Pack Location cervical & R shoulder Treatment Duration (minutes) 15 PT-OP-T Assessment and Plan Start: 01/08/18 13:37 Freq: Status: Active Protocol: Document 06/17/18 13:44 ML (Rec: 06/17/18 13:46 ML [id number]) Physical Therapy Assessment Goals strength Impairment strength Short Term Goal (STG) indep with HEP STG Duration Traffic Control Operator Goal (LTG) 5/5 UE strength to allow pt to do gardening & house activities without pain. LTG Duration 07/21/18 Two Impairment ROM Short Term Goal (STG) Pt will be able to open and close jaw without deviations STG Duration achieved Traffic Control Operator Goal (LTG) WNL cervical ROM to allow pt to do ADLs without pain or difficulty and report no difficulty with driving LTG Duration 07/21/18 Assessment Summary Assessment Pt's exercises were discussed but not reviewed due to improvement in mechanics. Pt's pain and tightness through R shoulder flex with horizontal abduction were addressed manually, and pt was able to perform a more fluid motion in a greater range with less pain. Physical Therapy Plan Frequency and Duration Frequency of Treatment 1-2x/Week Duration of Treatment 2 months Plan of Care Start Date 05/21/18 Plan of Care End Date 07/21/18 Next Visit Focus/Plan Next Note Type Treatment Note Next Visit Plan desk set up; check R shoulder motion and pain; assess UT and LS tightness bilat and ant chest
--- NOTE | 2018-06-17 16:41 | PT.OTN ---
Current Diagnoses Other specified disorders of temporomandibular joint (06/17/18) Physical Therapy Treatment Note PT-OP-A Visit Information Start: 01/08/18 13:37 Freq: Status: Active Protocol: Document 06/17/18 13:44 ML (Rec: 06/17/18 13:46 ML [id number]) Out-Patient Physical Therapy Visit Information Visit Information Visit Type Treatment Note Visit Note 9 total visits Visit Start Time 13:03 Visit Stop Time 14:00 Total Visit Minutes 57 Visit Number 7 Number of MAINTENANCE TECHNICIAN 2ND SHIFT Visits 0 PT-OP-B Current Condition Start: 01/08/18 13:37 Freq: Status: Active Protocol: Document 05/21/18 10:27 [facility] (Rec: 05/21/18 11:52 [facility] [id number]) Current Condition History of Current Condition Onset Date decades History of Current Condition Jaw is doing well and no more popping. Pt reports neck pain has lasted a couple decades. Reports she had a couple falls . One in 1999 where she hit her R side and R shoulder, back & neck [place] Reports a couple other falls that gave her a problem. Reports now neck pain into R> L shoulder. Dizziness has been better recently been d/t dec in BP meds. Has had some FARLEY but got sick a couple weeks ago and d/t not getting better she started antibotics. FARLEY was during feeling sick. Last one was 2 days ago. She thinks it may have to do with being still sick. Prior Treatments and Tests PT for TMD; chiropractor did x -rays last year- stopped seeing chiro during PT- gives temporary relief for about 1.5 days then tightens back up. When went in 3x/week and was feeling better when consistently going in. Treatment Goals Patient/Caregiver Goals Don't want pain to get worse, wants to have freedom to move head, doesn't want it to prevent her from driving, gardening & day to day activities. PT-OP-C Subjective Start: 01/08/18 13:37 Freq: Status: Active Protocol: Document 06/17/18 13:44 ML (Rec: 06/17/18 16:18 ML [id number]) OP-PT Subjective Patient Comments Patient Comments Pt notes that she gets pain on her R when she flexes then horiz abd arm. PT-OP-F Manual Assessment Start: 05/21/18 07:27 Freq: Status: Active Protocol: Document 05/21/18 10:27 [facility] (Rec: 05/21/18 11:52 [facility] [id number]) Manual Assessments Soft Tissue Assessment Soft Tissue Mobility Assessment tightness throughout the cervical region especially ant like scalenes & SCM; inc tightness of cervical parapsinals, UT, LS Joint Mobility Assessment Joint Mobility Assessment Dec thoracic rotation B; elevated 1st ribs B PT-OP-J Posture/Palpation/Skin Start: 01/08/18 13:37 Freq: Status: Active Protocol: Document 05/21/18 10:27 [facility] (Rec: 05/21/18 11:53 [facility] [id number]) Posture Evaluation Shawn Postural Classification System Shawn Postural Classifications Anterior/Posterior PT-OP-K Range of Motion Start: 01/08/18 13:37 Freq: Status: Active Protocol: Document 05/21/18 10:27 [facility] (Rec: 05/21/18 11:52 [facility] [id number]) Cervical Spine Range of Motion Cervical Spine Active Degrees Testing Position Sitting Flexion 40 Extension 32 Rotation Left 43 Rotation Right 50 Lateral Flexion Left 29 Lateral Flexion Right 26 Comments R lat tilt pain on R, L lat tilt no sx Shoulder Goniometric Range of Motion Shoulder ROM Limitations Comments pain w/R abd in R shoulder, pull in lats, but ROM WFL PT-OP-L Special Tests Start: 05/21/18 07:27 Freq: Status: Active Protocol: Document 05/21/18 10:27 [facility] (Rec: 05/21/18 11:52 [facility] [id number]) Special Tests Cervical Spine Special Tests Traction Test Results gives relief, feels good Vertebral Artery Test Results neg bilat spurlings L&R Test Results neg bilat compression Test Results neg Neural Special Tests- Upper Body radial n Test Results pos on R with end range, sx = pulling ulnar n Test Results neg bilat median n Test Results pos at 90 degrees abd on L, pos at 30 degrees abd on R passive abd Test Results pos on R at 90 degrees PT-OP-M Strength Start: 05/21/18 07:27 Freq: Status: Active Protocol: Document 05/21/18 10:27 [facility] (Rec: 05/21/18 11:52 [facility] [id number]) Shoulder Strength Shoulder Manual Muscle Testing L Flexion 4 Good Extension 4+ Good+ Abduction (C5) 4 Good External Rotation 4+ Good+ Internal Rotation 4+ Good+ R Flexion 4- Good- Extension 4 Good Abduction (C5) 3+ Fair+ External Rotation 4- Good- Internal Rotation 4- Good- Comments pain w/abd and IR PT-OP-Q Treatments Start: 01/08/18 13:37 Freq: Status: Active Protocol: Document 06/17/18 13:44 ML (Rec: 06/17/18 16:18 ML [id number]) Manual Therapy Treatment Soft Tissue Mobilization 2 Body Location LS, UT & scalenes Mobilization Type Myofascial Release Rolling Sustained Pressure Comments bilat; w/active chin tuck and lat head tilt Joint Mobilizations GH Joint R GH Direction inf and post Comments with active adduction for inf and horiz abd for post 1 Joint AC Comments with active chin tuck PT-OP-R Modalities Start: 01/08/18 13:37 Freq: Status: Active Protocol: Document 06/17/18 13:44 ML (Rec: 06/17/18 16:18 ML [id number]) Hot Pack/Cold Pack Treatment Hot Pack Location cervical & R shoulder Treatment Duration (minutes) 15 PT-OP-T Assessment and Plan Start: 01/08/18 13:37 Freq: Status: Active Protocol: Document 06/17/18 13:44 ML (Rec: 06/17/18 13:46 ML [id number]) Physical Therapy Assessment Goals strength Impairment strength Short Term Goal (STG) indep with HEP STG Duration User Support Analyst Supervisor Goal (LTG) 5/5 UE strength to allow pt to do gardening & house activities without pain. LTG Duration 07/21/18 Two Impairment ROM Short Term Goal (STG) Pt will be able to open and close jaw without deviations STG Duration achieved User Support Analyst Supervisor Goal (LTG) WNL cervical ROM to allow pt to do ADLs without pain or difficulty and report no difficulty with driving LTG Duration 07/21/18 Assessment Summary Assessment Pt's exercises were discussed but not reviewed due to improvement in mechanics. Pt's pain and tightness through R shoulder flex with horizontal abduction were addressed manually, and pt was able to perform a more fluid motion in a greater range with less pain. Physical Therapy Plan Frequency and Duration Frequency of Treatment 1-2x/Week Duration of Treatment 2 months Plan of Care Start Date 05/21/18 Plan of Care End Date 07/21/18 Next Visit Focus/Plan Next Note Type Treatment Note Next Visit Plan desk set up; check R shoulder motion and pain; assess UT and LS tightness bilat and ant chest
--- NOTE | 2018-06-20 16:00 | PT.OTN ---
Current Diagnoses Other specified disorders of temporomandibular joint (06/20/18) Physical Therapy Treatment Note PT-OP-A Visit Information Start: 01/08/18 13:37 Freq: Status: Active Protocol: Document 06/20/18 14:38 [facility] (Rec: 06/20/18 14:44 [facility] [email or web address]) Out-Patient Physical Therapy Visit Information Visit Information Visit Type Treatment Note Visit Note 10 total visits Visit Start Time 13:45 Visit Stop Time 14:45 Total Visit Minutes 60 Visit Number 8/ Number of GARAGE LABORER Visits 0 PT-OP-B Current Condition Start: 01/08/18 13:37 Freq: Status: Active Protocol: Document 05/21/18 10:27 [facility] (Rec: 05/21/18 11:52 [facility] [id number]) Current Condition History of Current Condition Onset Date decades History of Current Condition Jaw is doing well and no more popping. Pt reports neck pain has lasted a couple decades. Reports she had a couple falls . One in 1999 where she hit her R side and R shoulder, back & neck [place] Reports a couple other falls that gave her a problem. Reports now neck pain into R> L shoulder. Dizziness has been better recently been d/t dec in BP meds. Has had some FARLEY but got sick a couple weeks ago and d/t not getting better she started antibotics. FARLEY was during feeling sick. Last one was 2 days ago. She thinks it may have to do with being still sick. Prior Treatments and Tests PT for TMD; chiropractor did x -rays last year- stopped seeing chiro during PT- gives temporary relief for about 1.5 days then tightens back up. When went in 3x/week and was feeling better when consistently going in. Treatment Goals Patient/Caregiver Goals Don't want pain to get worse, wants to have freedom to move head, doesn't want it to prevent her from driving, gardening & day to day activities. PT-OP-C Subjective Start: 01/08/18 13:37 Freq: Status: Active Protocol: Document 06/20/18 14:38 [facility] (Rec: 06/20/18 14:44 [facility] [id number]) OP-PT Subjective Patient Comments Patient Comments reports R shoulder soreness PT-OP-F Manual Assessment Start: 05/21/18 07:27 Freq: Status: Active Protocol: Document 05/21/18 10:27 [facility] (Rec: 05/21/18 11:52 [facility] [id number]) Manual Assessments Soft Tissue Assessment Soft Tissue Mobility Assessment tightness throughout the cervical region especially ant like scalenes & SCM; inc tightness of cervical parapsinals, UT, LS Joint Mobility Assessment Joint Mobility Assessment Dec thoracic rotation B; elevated 1st ribs B PT-OP-J Posture/Palpation/Skin Start: 01/08/18 13:37 Freq: Status: Active Protocol: Document 05/21/18 10:27 [facility] (Rec: 05/21/18 11:53 [facility] [id number]) Posture Evaluation [facility] Postural Classification System Shawn Postural Classifications Anterior/Posterior PT-OP-K Range of Motion Start: 01/08/18 13:37 Freq: Status: Active Protocol: Document 05/21/18 10:27 [facility] (Rec: 05/21/18 11:52 [facility] [id number]) Cervical Spine Range of Motion Cervical Spine Active Degrees Testing Position Sitting Flexion 40 Extension 32 Rotation Left 43 Rotation Right 50 Lateral Flexion Left 29 Lateral Flexion Right 26 Comments R lat tilt pain on R, L lat tilt no sx Shoulder Goniometric Range of Motion Shoulder ROM Limitations Comments pain w/R abd in R shoulder, pull in lats, but ROM WFL PT-OP-L Special Tests Start: 05/21/18 07:27 Freq: Status: Active Protocol: Document 05/21/18 10:27 [facility] (Rec: 05/21/18 11:52 [facility] [id number]) Special Tests Cervical Spine Special Tests Traction Test Results gives relief, feels good Vertebral Artery Test Results neg bilat spurlings L&R Test Results neg bilat compression Test Results neg Neural Special Tests- Upper Body radial n Test Results pos on R with end range, sx = pulling ulnar n Test Results neg bilat median n Test Results pos at 90 degrees abd on L, pos at 30 degrees abd on R passive abd Test Results pos on R at 90 degrees PT-OP-M Strength Start: 05/21/18 07:27 Freq: Status: Active Protocol: Document 05/21/18 10:27 [facility] (Rec: 05/21/18 11:52 [facility] [id number]) Shoulder Strength Shoulder Manual Muscle Testing L Flexion 4 Good Extension 4+ Good+ Abduction (C5) 4 Good External Rotation 4+ Good+ Internal Rotation 4+ Good+ R Flexion 4- Good- Extension 4 Good Abduction (C5) 3+ Fair+ External Rotation 4- Good- Internal Rotation 4- Good- Comments pain w/abd and IR PT-OP-Q Treatments Start: 01/08/18 13:37 Freq: Status: Active Protocol: Document 06/20/18 14:38 [facility] (Rec: 06/20/18 14:44 [facility] [id number]) Therapeutic Exercises Standing Exercises 4 Standing Exercise Name doorway pec stretch Comments elbow straight and 90/90 Therapeutic Activity Therapeutic Activity 1 Comments edu on neck positioning with sleeping and with neck positioning in standing. edu for neutral Manual Therapy Treatment Soft Tissue Mobilization 2 Body Location LS, UT & scalenes Mobilization Type Myofascial Release Rolling Sustained Pressure Comments R; w/active chin tuck and lat head tilt 1 Body Location deltoid R Mobilization Type Myofascial Release Rolling Sustained Pressure Intensity/Depth Moderate Body Position Supine Joint Mobilizations 2 Joint 1 rib R Direction caudal Comments s/l rolling 1 Joint AC Comments with active chin tuck PT-OP-R Modalities Start: 01/08/18 13:37 Freq: Status: Active Protocol: Document 06/20/18 14:38 [facility] (Rec: 06/20/18 16:00 [facility] [id number]) Hot Pack/Cold Pack Treatment Hot Pack Location cervical & R shoulder Treatment Duration (minutes) 15 PT-OP-T Assessment and Plan Start: 01/08/18 13:37 Freq: Status: Active Protocol: Document 06/20/18 14:38 [facility] (Rec: 06/20/18 14:44 [facility] [id number]) Physical Therapy Assessment Goals strength Impairment strength Short Term Goal (STG) indep with HEP STG Duration Diver Tender Goal (LTG) 5/5 UE strength to allow pt to do gardening & house activities without pain. LTG Duration 07/21/18 Two Impairment ROM Short Term Goal (STG) Pt will be able to open and close jaw without deviations STG Duration achieved Snf Goal (LTG) WNL cervical ROM to allow pt to do ADLs without pain or difficulty and report no difficulty with driving LTG Duration 07/21/18 Assessment Summary Assessment Pt started with painful abd in R shoulder and after manual treatment no pain. Improved positioning of neck in standing and s/l after edu. Physical Therapy Plan Frequency and Duration Frequency of Treatment 1-2x/Week Duration of Treatment 2 months Plan of Care Start Date 05/21/18 Plan of Care End Date 07/21/18 Next Visit Focus/Plan Next Note Type Treatment Note Next Visit Plan Cont to work on proper scapular motion
--- NOTE | 2018-06-25 14:30 | PT.OTN ---
Current Diagnoses Other specified disorders of temporomandibular joint (06/25/18) Physical Therapy Treatment Note PT-OP-A Visit Information Start: 01/08/18 13:37 Freq: Status: Active Protocol: Document 06/25/18 12:00 [facility] (Rec: 06/25/18 13:16 [facility] [id number]) Out-Patient Physical Therapy Visit Information Visit Information Visit Type Treatment Note Visit Note 11 total visits Visit Start Time 11:20 Visit Stop Time 12:15 Total Visit Minutes 55 Visit Number 9/10 Number of SOLUTIONS SALES CONSULTANT Visits 0 PT-OP-B Current Condition Start: 01/08/18 13:37 Freq: Status: Active Protocol: Document 05/21/18 10:27 [facility] (Rec: 05/21/18 11:52 [facility] [id number]) Current Condition History of Current Condition Onset Date decades History of Current Condition Jaw is doing well and no more popping. Pt reports neck pain has lasted a couple decades. Reports she had a couple falls . One in 1999 where she hit her R side and R shoulder, back & neck [place] Reports a couple other falls that gave her a problem. Reports now neck pain into R> L shoulder. Dizziness has been better recently been d/t dec in BP meds. Has had some FARLEY but got sick a couple weeks ago and d/t not getting better she started antibotics. FARLEY was during feeling sick. Last one was 2 days ago. She thinks it may have to do with being still sick. Prior Treatments and Tests PT for TMD; chiropractor did x -rays last year- stopped seeing chiro during PT- gives temporary relief for about 1.5 days then tightens back up. When went in 3x/week and was feeling better when consistently going in. Treatment Goals Patient/Caregiver Goals Don't want pain to get worse, wants to have freedom to move head, doesn't want it to prevent her from driving, gardening & day to day activities. PT-OP-C Subjective Start: 01/08/18 13:37 Freq: Status: Active Protocol: Document 06/25/18 12:00 [facility] (Rec: 06/25/18 13:16 [facility] [id number]) OP-PT Subjective Patient Comments Patient Comments Reports she felt great for about 24 hours after last rx. did some gardening then noticed inc pain that night. PT-OP-F Manual Assessment Start: 05/21/18 07:27 Freq: Status: Active Protocol: Document 05/21/18 10:27 [facility] (Rec: 05/21/18 11:52 [facility] [id number]) Manual Assessments Soft Tissue Assessment Soft Tissue Mobility Assessment tightness throughout the cervical region especially ant like scalenes & SCM; inc tightness of cervical parapsinals, UT, LS Joint Mobility Assessment Joint Mobility Assessment Dec thoracic rotation B; elevated 1st ribs B PT-OP-J Posture/Palpation/Skin Start: 01/08/18 13:37 Freq: Status: Active Protocol: Document 05/21/18 10:27 [facility] (Rec: 05/21/18 11:53 [facility] [id number]) Posture Evaluation Shawn Postural Classification System Shawn Postural Classifications Anterior/Posterior PT-OP-K Range of Motion Start: 01/08/18 13:37 Freq: Status: Active Protocol: Document 05/21/18 10:27 [facility] (Rec: 05/21/18 11:52 [facility] [id number]) Cervical Spine Range of Motion Cervical Spine Active Degrees Testing Position Sitting Flexion 40 Extension 32 Rotation Left 43 Rotation Right 50 Lateral Flexion Left 29 Lateral Flexion Right 26 Comments R lat tilt pain on R, L lat tilt no sx Shoulder Goniometric Range of Motion Shoulder ROM Limitations Comments pain w/R abd in R shoulder, pull in lats, but ROM WFL PT-OP-L Special Tests Start: 05/21/18 07:27 Freq: Status: Active Protocol: Document 05/21/18 10:27 [facility] (Rec: 05/21/18 11:52 [facility] [id number]) Special Tests Cervical Spine Special Tests Traction Test Results gives relief, feels good Vertebral Artery Test Results neg bilat spurlings L&R Test Results neg bilat compression Test Results neg Neural Special Tests- Upper Body radial n Test Results pos on R with end range, sx = pulling ulnar n Test Results neg bilat median n Test Results pos at 90 degrees abd on L, pos at 30 degrees abd on R passive abd Test Results pos on R at 90 degrees PT-OP-M Strength Start: 05/21/18 07:27 Freq: Status: Active Protocol: Document 05/21/18 10:27 [facility] (Rec: 05/21/18 11:52 [facility] [id number]) Shoulder Strength Shoulder Manual Muscle Testing L Flexion 4 Good Extension 4+ Good+ Abduction (C5) 4 Good External Rotation 4+ Good+ Internal Rotation 4+ Good+ R Flexion 4- Good- Extension 4 Good Abduction (C5) 3+ Fair+ External Rotation 4- Good- Internal Rotation 4- Good- Comments pain w/abd and IR PT-OP-Q Treatments Start: 01/08/18 13:37 Freq: Status: Active Protocol: Document 06/25/18 12:00 [facility] (Rec: 06/25/18 14:30 [facility] [id number]) Therapeutic Exercises Standing Exercises 4 Standing Exercise Name doorway pec stretch Comments elbow straight and 90/90 1 Standing Exercise Name cross body UE stretch Reps/Minutes 30 sec Therapeutic Activity Therapeutic Activity gardening Comments edu for positioning when gardening Manual Therapy Treatment Soft Tissue Mobilization 3 Body Location cervical paraspinals Mobilization Type Rolling Intensity/Depth Moderate 2 Body Location LS, UT & scalenes Mobilization Type Myofascial Release Rolling Sustained Pressure Comments R; w/active chin tuck and lat head tilt 1 Body Location deltoid R Mobilization Type Myofascial Release Rolling Sustained Pressure Intensity/Depth Moderate Body Position Supine PT-OP-R Modalities Start: 01/08/18 13:37 Freq: Status: Active Protocol: Document 06/25/18 12:00 [facility] (Rec: 06/25/18 13:16 [facility] [id number]) Hot Pack/Cold Pack Treatment Hot Pack Location cervical & R shoulder Treatment Duration (minutes) 15 PT-OP-T Assessment and Plan Start: 01/08/18 13:37 Freq: Status: Active Protocol: Document 06/25/18 12:00 [facility] (Rec: 06/25/18 13:16 [facility] [id number]) Physical Therapy Assessment Goals strength Impairment strength Short Term Goal (STG) indep with HEP STG Duration Correction Goal (LTG) 5/5 UE strength to allow pt to do gardening & house activities without pain. LTG Duration 07/21/18 Two Impairment ROM Short Term Goal (STG) Pt will be able to open and close jaw without deviations STG Duration achieved Correction Goal (LTG) WNL cervical ROM to allow pt to do ADLs without pain or difficulty and report no difficulty with driving LTG Duration 12/31/18 Assessment Summary Assessment Pt verbalized understanding for positioning with gardening . Improved mobility of scapula into depression to allow improved posture. Physical Therapy Plan Frequency and Duration Frequency of Treatment 1-2x/Week Duration of Treatment 2 months Plan of Care Start Date 05/21/18 Plan of Care End Date 07/21/18 Next Visit Focus/Plan Next Note Type Progress Note Next Visit Plan Cont to work on proper scapular motion
--- NOTE | 2018-06-27 14:19 | PT.OTN ---
Current Diagnoses Other specified disorders of temporomandibular joint (06/27/18) Physical Therapy Treatment Note PT-OP-A Visit Information Start: 01/08/18 13:37 Freq: Status: Active Protocol: Document 06/27/18 13:06 [facility] (Rec: 06/27/18 13:48 [facility] [id number]) Out-Patient Physical Therapy Visit Information Visit Information Visit Type Treatment Note Visit Note 12 total visits Visit Start Time 13:05 Visit Stop Time 14:00 Total Visit Minutes 55 Visit Number / Number of REHABILITATION MANAGER Visits 0 PT-OP-B Current Condition Start: 01/08/18 13:37 Freq: Status: Active Protocol: Document 05/21/18 10:27 [facility] (Rec: 05/21/18 11:52 [facility] [id number]) Current Condition History of Current Condition Onset Date decades History of Current Condition Jaw is doing well and no more popping. Pt reports neck pain has lasted a couple decades. Reports she had a couple falls . One in 1999 where she hit her R side and R shoulder, back & neck [place] Reports a couple other falls that gave her a problem. Reports now neck pain into R> L shoulder. Dizziness has been better recently been d/t dec in BP meds. Has had some FARLEY but got sick a couple weeks ago and d/t not getting better she started antibotics. FARLEY was during feeling sick. Last one was 2 days ago. She thinks it may have to do with being still sick. Prior Treatments and Tests PT for TMD; chiropractor did x -rays last year- stopped seeing chiro during PT- gives temporary relief for about 1.5 days then tightens back up. When went in 3x/week and was feeling better when consistently going in. Treatment Goals Patient/Caregiver Goals Don't want pain to get worse, wants to have freedom to move head, doesn't want it to prevent her from driving, gardening & day to day activities. PT-OP-C Subjective Start: 01/08/18 13:37 Freq: Status: Active Protocol: Document 06/27/18 13:06 [facility] (Rec: 06/27/18 13:48 [facility] [id number]) OP-PT Subjective Patient Comments Patient Comments Reports she has done her exercises some. She feels like the gardening she did put her backwards a little PT-OP-F Manual Assessment Start: 05/21/18 07:27 Freq: Status: Active Protocol: Document 05/21/18 10:27 [facility] (Rec: 05/21/18 11:52 [facility] [id number]) Manual Assessments Soft Tissue Assessment Soft Tissue Mobility Assessment tightness throughout the cervical region especially ant like scalenes & SCM; inc tightness of cervical parapsinals, UT, LS Joint Mobility Assessment Joint Mobility Assessment Dec thoracic rotation B; elevated 1st ribs B PT-OP-J Posture/Palpation/Skin Start: 01/08/18 13:37 Freq: Status: Active Protocol: Document 05/21/18 10:27 [facility] (Rec: 05/21/18 11:53 [facility] [id number]) Posture Evaluation Shawn Postural Classification System Shawn Postural Classifications Anterior/Posterior PT-OP-K Range of Motion Start: 01/08/18 13:37 Freq: Status: Active Protocol: Document 06/27/18 13:06 [facility] (Rec: 06/27/18 13:48 [facility] [id number]) Cervical Spine Range of Motion Cervical Spine Active Degrees Flexion 70 Extension 37 Rotation Left 37 Rotation Right 40 Lateral Flexion Left 38 Lateral Flexion Right 37 PT-OP-L Special Tests Start: 05/21/18 07:27 Freq: Status: Active Protocol: Document 05/21/18 10:27 [facility] (Rec: 05/21/18 11:52 [facility] [id number]) Special Tests Cervical Spine Special Tests Traction Test Results gives relief, feels good Vertebral Artery Test Results neg bilat spurlings L&R Test Results neg bilat compression Test Results neg Neural Special Tests- Upper Body radial n Test Results pos on R with end range, sx = pulling ulnar n Test Results neg bilat median n Test Results pos at 90 degrees abd on L, pos at 30 degrees abd on R passive abd Test Results pos on R at 90 degrees PT-OP-M Strength Start: 05/21/18 07:27 Freq: Status: Active Protocol: Document 06/27/18 13:06 [facility] (Rec: 06/27/18 13:48 [facility] [id number]) Shoulder Strength Shoulder Manual Muscle Testing L Flexion 5 Normal Extension 5 Normal Abduction (C5) 5 Normal External Rotation 5 Normal Internal Rotation 5 Normal R Flexion 5 Normal Extension 4+ Good+ Abduction (C5) 3+ Fair+ External Rotation 5 Normal Internal Rotation 5 Normal Comments pain with abd and ext PT-OP-Q Treatments Start: 01/08/18 13:37 Freq: Status: Active Protocol: Document 06/27/18 12:00 [facility] (Rec: 06/27/18 14:19 [facility] [id number]) Therapeutic Exercises Supine Exercises 1 Supine Exercise Name axial elongation Reps/Minutes 5 sec holds Manual Therapy Treatment Soft Tissue Mobilization 3 Body Location cervical paraspinals Mobilization Type Rolling Intensity/Depth Moderate 2 Body Location LS, UT & scalenes Mobilization Type Myofascial Release Rolling Sustained Pressure Comments R; w/active chin tuck and lat head tilt 1 Body Location deltoid R Mobilization Type Myofascial Release Rolling Sustained Pressure Intensity/Depth Moderate Body Position Supine Joint Mobilizations 2 Joint C3 Direction R transverse process FM 1 Joint T1-3 Direction R transverse FM PT-OP-R Modalities Start: 01/08/18 13:37 Freq: Status: Active Protocol: Document 06/27/18 13:06 [facility] (Rec: 06/27/18 13:48 [facility] [id number]) Hot Pack/Cold Pack Treatment Hot Pack Location cervical & R shoulder Treatment Duration (minutes) 15 PT-OP-T Assessment and Plan Start: 01/08/18 13:37 Freq: Status: Active Protocol: Document 06/27/18 13:06 [facility] (Rec: 06/27/18 13:48 [facility] [id number]) Physical Therapy Assessment Goals strength Impairment strength Short Term Goal (STG) indep with HEP STG Duration - achieved progressing Seed Buyer Goal (LTG) 5/5 UE strength to allow pt to do gardening & house activities without pain. LTG Duration 07/21/18 Two Impairment ROM Short Term Goal (STG) Pt will be able to open and close jaw without deviations STG Duration achieved Seed Buyer Goal (LTG) WNL cervical ROM to allow pt to do ADLs without pain or difficulty and report no difficulty with driving LTG Duration 07/21/18 Assessment Summary Assessment Improved rotation to L after STM & joint mobilizations. She cont to have upper cervical limitations preventing rotation. Physical Therapy Plan Frequency and Duration Frequency of Treatment 1-2x/Week Duration of Treatment 2 months Plan of Care Start Date 05/21/18 Plan of Care End Date 07/21/18 Next Visit Focus/Plan Next Note Type Treatment Note Next Visit Plan Cont to work on proper scapular motion & rotation
--- NOTE | 2018-06-30 14:33 | PT.OTN ---
Current Diagnoses Other specified disorders of temporomandibular joint (06/30/18) Physical Therapy Treatment Note PT-OP-A Visit Information Start: 01/08/18 13:37 Freq: Status: Active Protocol: Document 06/30/18 13:49 [facility] (Rec: 06/30/18 14:33 [facility] [id number]) Out-Patient Physical Therapy Visit Information Visit Information Visit Type Treatment Note Visit Note 13 total visits Visit Start Time 13:45 Visit Stop Time 14:45 Total Visit Minutes 60 Visit Number 2/10 Number of NURSE SPECIALIST Visits 0 PT-OP-B Current Condition Start: 01/08/18 13:37 Freq: Status: Active Protocol: Document 05/21/18 10:27 [facility] (Rec: 05/21/18 11:52 [facility] [id number]) Current Condition History of Current Condition Onset Date decades History of Current Condition Jaw is doing well and no more popping. Pt reports neck pain has lasted a couple decades. Reports she had a couple falls . One in 1999 where she hit her R side and R shoulder, back & neck [place] Reports a couple other falls that gave her a problem. Reports now neck pain into R> L shoulder. Dizziness has been better recently been d/t dec in BP meds. Has had some FARLEY but got sick a couple weeks ago and d/t not getting better she started antibotics. FARLEY was during feeling sick. Last one was 2 days ago. She thinks it may have to do with being still sick. Prior Treatments and Tests PT for TMD; chiropractor did x -rays last year- stopped seeing chiro during PT- gives temporary relief for about 1.5 days then tightens back up. When went in 3x/week and was feeling better when consistently going in. Treatment Goals Patient/Caregiver Goals Don't want pain to get worse, wants to have freedom to move head, doesn't want it to prevent her from driving, gardening & day to day activities. PT-OP-C Subjective Start: 01/08/18 13:37 Freq: Status: Active Protocol: Document 06/30/18 13:49 [facility] (Rec: 06/30/18 14:33 [facility] [id number]) OP-PT Subjective Patient Comments Patient Comments Reports compliance with HEP and notes she is sleeping better. PT-OP-F Manual Assessment Start: 05/21/18 07:27 Freq: Status: Active Protocol: Document 05/21/18 10:27 [facility] (Rec: 05/21/18 11:52 [facility] [id number]) Manual Assessments Soft Tissue Assessment Soft Tissue Mobility Assessment tightness throughout the cervical region especially ant like scalenes & SCM; inc tightness of cervical parapsinals, UT, LS Joint Mobility Assessment Joint Mobility Assessment Dec thoracic rotation B; elevated 1st ribs B PT-OP-J Posture/Palpation/Skin Start: 01/08/18 13:37 Freq: Status: Active Protocol: Document 05/21/18 10:27 [facility] (Rec: 05/21/18 11:53 [facility] [id number]) Posture Evaluation Shawn Postural Classification System Shawn Postural Classifications Anterior/Posterior PT-OP-K Range of Motion Start: 01/08/18 13:37 Freq: Status: Active Protocol: Document 06/27/18 13:06 [facility] (Rec: 06/27/18 13:48 [facility] [id number]) Cervical Spine Range of Motion Cervical Spine Active Degrees Flexion 70 Extension 37 Rotation Left 37 Rotation Right 40 Lateral Flexion Left 38 Lateral Flexion Right 37 PT-OP-L Special Tests Start: 05/21/18 07:27 Freq: Status: Active Protocol: Document 05/21/18 10:27 [facility] (Rec: 05/21/18 11:52 [facility] [id number]) Special Tests Cervical Spine Special Tests Traction Test Results gives relief, feels good Vertebral Artery Test Results neg bilat spurlings L&R Test Results neg bilat compression Test Results neg Neural Special Tests- Upper Body radial n Test Results pos on R with end range, sx = pulling ulnar n Test Results neg bilat median n Test Results pos at 90 degrees abd on L, pos at 30 degrees abd on R passive abd Test Results pos on R at 90 degrees PT-OP-M Strength Start: 05/21/18 07:27 Freq: Status: Active Protocol: Document 06/27/18 13:06 [facility] (Rec: 06/27/18 13:48 [facility] [id number]) Shoulder Strength Shoulder Manual Muscle Testing L Flexion 5 Normal Extension 5 Normal Abduction (C5) 5 Normal External Rotation 5 Normal Internal Rotation 5 Normal R Flexion 5 Normal Extension 4+ Good+ Abduction (C5) 3+ Fair+ External Rotation 5 Normal Internal Rotation 5 Normal Comments pain with abd and ext PT-OP-Q Treatments Start: 01/08/18 13:37 Freq: Status: Active Protocol: Document 06/30/18 13:49 [facility] (Rec: 06/30/18 14:33 [facility] [id number]) Therapeutic Exercises Supine Exercises 1 Supine Exercise Name axial elongation Reps/Minutes 5 sec holds Standing Exercises HAbd Standing Exercise Name Habd B with flex Reps/Minutes 10 Comments in mirror 4 Standing Exercise Name doorway pec stretch Comments elbow straight and 90/90 1 Standing Exercise Name cross body UE stretch Reps/Minutes 30 sec Other Exercises dayne pose Other Exercise Name dayne pose & to side Manual Therapy Treatment Soft Tissue Mobilization 6 Body Location SOR Mobilization Type Sustained Pressure 3 Body Location cervical paraspinals Mobilization Type Rolling Intensity/Depth Moderate 1 Body Location deltoid R Mobilization Type Myofascial Release Rolling Sustained Pressure Intensity/Depth Moderate Body Position Supine Joint Mobilizations 2 Joint C3 Direction L transverse process FM 1 Joint T1 Direction R transverse FM PT-OP-R Modalities Start: 01/08/18 13:37 Freq: Status: Active Protocol: Document 06/30/18 13:49 [facility] (Rec: 06/30/18 14:33 [facility] [id number]) Hot Pack/Cold Pack Treatment Hot Pack Location cervical & R shoulder Treatment Duration (minutes) 15 PT-OP-T Assessment and Plan Start: 01/08/18 13:37 Freq: Status: Active Protocol: Document 06/30/18 13:49 [facility] (Rec: 06/30/18 14:33 [facility] [id number]) Physical Therapy Assessment Goals strength Impairment strength Short Term Goal (STG) indep with HEP STG Duration - achieved progressing Senior Care Goal (LTG) 5/5 UE strength to allow pt to do gardening & house activities without pain. LTG Duration 07/21/18 Two Impairment ROM Short Term Goal (STG) Pt will be able to open and close jaw without deviations STG Duration achieved Senior Care Goal (LTG) WNL cervical ROM to allow pt to do ADLs without pain or difficulty and report no difficulty with driving LTG Duration 07/21/18 Assessment Summary Assessment Pt requires min cueing with exercises to help with dec UT activation with R>L UE use. Physical Therapy Plan Frequency and Duration Frequency of Treatment 1-2x/Week Duration of Treatment 2 months Plan of Care Start Date 05/21/18 Plan of Care End Date 07/21/18 Next Visit Focus/Plan Next Note Type Treatment Note Next Visit Plan Cont to work on appropriate GH movement on scapula
--- NOTE | 2018-07-02 13:48 | PT.OTN ---
Current Diagnoses Other specified disorders of temporomandibular joint (07/02/18) Physical Therapy Treatment Note PT-OP-A Visit Information Start: 01/08/18 13:37 Freq: Status: Active Protocol: Document 07/02/18 13:02 [facility] (Rec: 07/02/18 13:48 [facility] [id number]) Out-Patient Physical Therapy Visit Information Visit Information Visit Type Treatment Note Visit Note 13 total visits Visit Start Time 13:00 Visit Stop Time 14:00 Total Visit Minutes 60 Visit Number 3/10 Number of FARMWORKER MACHINE Visits 0 PT-OP-B Current Condition Start: 01/08/18 13:37 Freq: Status: Active Protocol: Document 05/21/18 10:27 [facility] (Rec: 05/21/18 11:52 [facility] [id number]) Current Condition History of Current Condition Onset Date decades History of Current Condition Jaw is doing well and no more popping. Pt reports neck pain has lasted a couple decades. Reports she had a couple falls . One in 1999 where she hit her R side and R shoulder, back & neck [place] Reports a couple other falls that gave her a problem. Reports now neck pain into R> L shoulder. Dizziness has been better recently been d/t dec in BP meds. Has had some FARLEY but got sick a couple weeks ago and d/t not getting better she started antibotics. FARLEY was during feeling sick. Last one was 2 days ago. She thinks it may have to do with being still sick. Prior Treatments and Tests PT for TMD; chiropractor did x -rays last year- stopped seeing chiro during PT- gives temporary relief for about 1.5 days then tightens back up. When went in 3x/week and was feeling better when consistently going in. Treatment Goals Patient/Caregiver Goals Don't want pain to get worse, wants to have freedom to move head, doesn't want it to prevent her from driving, gardening & day to day activities. PT-OP-C Subjective Start: 01/08/18 13:37 Freq: Status: Active Protocol: Document 07/02/18 13:02 [facility] (Rec: 07/02/18 13:48 [facility] [id number]) OP-PT Subjective Patient Comments Patient Comments Pt reports she is about the same. PT-OP-F Manual Assessment Start: 05/21/18 07:27 Freq: Status: Active Protocol: Document 05/21/18 10:27 [facility] (Rec: 05/21/18 11:52 [facility] [id number]) Manual Assessments Soft Tissue Assessment Soft Tissue Mobility Assessment tightness throughout the cervical region especially ant like scalenes & SCM; inc tightness of cervical parapsinals, UT, LS Joint Mobility Assessment Joint Mobility Assessment Dec thoracic rotation B; elevated 1st ribs B PT-OP-J Posture/Palpation/Skin Start: 01/08/18 13:37 Freq: Status: Active Protocol: Document 05/21/18 10:27 [facility] (Rec: 05/21/18 11:53 [facility] [id number]) Posture Evaluation [facility] Postural Classification System Shawn Postural Classifications Anterior/Posterior PT-OP-K Range of Motion Start: 01/08/18 13:37 Freq: Status: Active Protocol: Document 06/27/18 13:06 [facility] (Rec: 06/27/18 13:48 [facility] [id number]) Cervical Spine Range of Motion Cervical Spine Active Degrees Flexion 70 Extension 37 Rotation Left 37 Rotation Right 40 Lateral Flexion Left 38 Lateral Flexion Right 37 PT-OP-L Special Tests Start: 05/21/18 07:27 Freq: Status: Active Protocol: Document 05/21/18 10:27 [facility] (Rec: 05/21/18 11:52 [facility] [id number]) Special Tests Cervical Spine Special Tests Traction Test Results gives relief, feels good Vertebral Artery Test Results neg bilat spurlings L&R Test Results neg bilat compression Test Results neg Neural Special Tests- Upper Body radial n Test Results pos on R with end range, sx = pulling ulnar n Test Results neg bilat median n Test Results pos at 90 degrees abd on L, pos at 30 degrees abd on R passive abd Test Results pos on R at 90 degrees PT-OP-M Strength Start: 05/21/18 07:27 Freq: Status: Active Protocol: Document 06/27/18 13:06 [facility] (Rec: 06/27/18 13:48 [facility] [id number]) Shoulder Strength Shoulder Manual Muscle Testing L Flexion 5 Normal Extension 5 Normal Abduction (C5) 5 Normal External Rotation 5 Normal Internal Rotation 5 Normal R Flexion 5 Normal Extension 4+ Good+ Abduction (C5) 3+ Fair+ External Rotation 5 Normal Internal Rotation 5 Normal Comments pain with abd and ext PT-OP-Q Treatments Start: 01/08/18 13:37 Freq: Status: Active Protocol: Document 07/02/18 13:02 [facility] (Rec: 07/02/18 13:48 [facility] [id number]) Therapeutic Exercises Standing Exercises pull downs Standing Exercise Name pull downs Equipment Used L2 Reps/Minutes 10 HAbd Standing Exercise Name Habd B with flex Reps/Minutes 10 Comments in mirror 1 Standing Exercise Name cross body UE stretch Reps/Minutes 30 sec Other Exercises 1 Other Exercise Name quadruped scaption Therapeutic Activity Therapeutic Activity reaching Name reaching Comments hip hinge to reach further and focus on maintaining scapular position 1 Name seated posture Manual Therapy Treatment Soft Tissue Mobilization 6 Body Location SOR Mobilization Type Sustained Pressure 5 Body Location teres major/minor Mobilization Type Sustained Pressure Intensity/Depth Moderate Comments w/c/r flex & abd 2 Body Location LS, UT & scalenes Mobilization Type Myofascial Release Rolling Sustained Pressure Comments R; w/active chin tuck and lat head tilt 1 Body Location deltoid R Mobilization Type Myofascial Release Rolling Sustained Pressure Intensity/Depth Moderate Body Position Supine PT-OP-R Modalities Start: 01/08/18 13:37 Freq: Status: Active Protocol: Document 07/02/18 13:02 [facility] (Rec: 07/02/18 13:48 [facility] [id number]) Hot Pack/Cold Pack Treatment Hot Pack Location cervical & R shoulder Treatment Duration (minutes) 15 PT-OP-T Assessment and Plan Start: 01/08/18 13:37 Freq: Status: Active Protocol: Document 07/02/18 13:02 [facility] (Rec: 07/02/18 13:48 [facility] [id number]) Physical Therapy Assessment Goals strength Impairment strength Short Term Goal (STG) indep with HEP STG Duration - achieved progressing Half-Way Goal (LTG) 5/5 UE strength to allow pt to do gardening & house activities without pain. LTG Duration 07/21/18 Two Impairment ROM Short Term Goal (STG) Pt will be able to open and close jaw without deviations STG Duration achieved Half-Way Goal (LTG) WNL cervical ROM to allow pt to do ADLs without pain or difficulty and report no difficulty with driving LTG Duration 07/21/18 Assessment Summary Assessment Improved reaching form with cueing and posture. Pt cont to improve with soft tissue tigthenss in cervical region Physical Therapy Plan Frequency and Duration Frequency of Treatment 1-2x/Week Duration of Treatment 2 months Plan of Care Start Date 05/21/18 Plan of Care End Date 07/21/18 Next Visit Focus/Plan Next Note Type Treatment Note Next Visit Plan cont to work on reaching mechanics
--- NOTE | 2018-07-11 16:17 | PT.OTN ---
Current Diagnoses Other specified disorders of temporomandibular joint (07/11/18) Physical Therapy Treatment Note PT-OP-A Visit Information Start: 01/08/18 13:37 Freq: Status: Active Protocol: Document 07/11/18 16:12 [facility] (Rec: 07/11/18 16:17 [facility] [id number]) Out-Patient Physical Therapy Visit Information Visit Information Visit Type Treatment Note Visit Note 14 total Visit Start Time 13:05 Visit Stop Time 14:00 Total Visit Minutes 55 Visit Number 4/10 Number of FISHER DIVING Visits 0 PT-OP-B Current Condition Start: 01/08/18 13:37 Freq: Status: Active Protocol: Document 05/21/18 10:27 [facility] (Rec: 05/21/18 11:52 [facility] [id number]) Current Condition History of Current Condition Onset Date decades History of Current Condition Jaw is doing well and no more popping. Pt reports neck pain has lasted a couple decades. Reports she had a couple falls . One in 1999 where she hit her R side and R shoulder, back & neck [place] Reports a couple other falls that gave her a problem. Reports now neck pain into R> L shoulder. Dizziness has been better recently been d/t dec in BP meds. Has had some FARLEY but got sick a couple weeks ago and d/t not getting better she started antibotics. FARLEY was during feeling sick. Last one was 2 days ago. She thinks it may have to do with being still sick. Prior Treatments and Tests PT for TMD; chiropractor did x -rays last year- stopped seeing chiro during PT- gives temporary relief for about 1.5 days then tightens back up. When went in 3x/week and was feeling better when consistently going in. Treatment Goals Patient/Caregiver Goals Don't want pain to get worse, wants to have freedom to move head, doesn't want it to prevent her from driving, gardening & day to day activities. PT-OP-C Subjective Start: 01/08/18 13:37 Freq: Status: Active Protocol: Document 07/11/18 16:12 [facility] (Rec: 07/11/18 16:17 [facility] [id number]) OP-PT Subjective Patient Comments Patient Comments Report she did a pilates class and did pretty well with that . PT-OP-F Manual Assessment Start: 05/21/18 07:27 Freq: Status: Active Protocol: Document 05/21/18 10:27 [facility] (Rec: 05/21/18 11:52 [facility] [id number]) Manual Assessments Soft Tissue Assessment Soft Tissue Mobility Assessment tightness throughout the cervical region especially ant like scalenes & SCM; inc tightness of cervical parapsinals, UT, LS Joint Mobility Assessment Joint Mobility Assessment Dec thoracic rotation B; elevated 1st ribs B PT-OP-J Posture/Palpation/Skin Start: 01/08/18 13:37 Freq: Status: Active Protocol: Document 05/21/18 10:27 [facility] (Rec: 05/21/18 11:53 [facility] [id number]) Posture Evaluation Shawn Postural Classification System Shawn Postural Classifications Anterior/Posterior PT-OP-K Range of Motion Start: 01/08/18 13:37 Freq: Status: Active Protocol: Document 06/27/18 13:06 [facility] (Rec: 06/27/18 13:48 [facility] [id number]) Cervical Spine Range of Motion Cervical Spine Active Degrees Flexion 70 Extension 37 Rotation Left 37 Rotation Right 40 Lateral Flexion Left 38 Lateral Flexion Right 37 PT-OP-L Special Tests Start: 05/21/18 07:27 Freq: Status: Active Protocol: Document 05/21/18 10:27 [facility] (Rec: 05/21/18 11:52 [facility] [id number]) Special Tests Cervical Spine Special Tests Traction Test Results gives relief, feels good Vertebral Artery Test Results neg bilat spurlings L&R Test Results neg bilat compression Test Results neg Neural Special Tests- Upper Body radial n Test Results pos on R with end range, sx = pulling ulnar n Test Results neg bilat median n Test Results pos at 90 degrees abd on L, pos at 30 degrees abd on R passive abd Test Results pos on R at 90 degrees PT-OP-M Strength Start: 05/21/18 07:27 Freq: Status: Active Protocol: Document 06/27/18 13:06 [facility] (Rec: 06/27/18 13:48 [facility] [id number]) Shoulder Strength Shoulder Manual Muscle Testing L Flexion 5 Normal Extension 5 Normal Abduction (C5) 5 Normal External Rotation 5 Normal Internal Rotation 5 Normal R Flexion 5 Normal Extension 4+ Good+ Abduction (C5) 3+ Fair+ External Rotation 5 Normal Internal Rotation 5 Normal Comments pain with abd and ext PT-OP-Q Treatments Start: 01/08/18 13:37 Freq: Status: Active Protocol: Document 07/11/18 16:12 [facility] (Rec: 07/11/18 16:17 [facility] [id number]) Therapeutic Exercises Standing Exercises mirror Standing Exercise Name UE flex & abd with focus on scapular pattern Comments use of mirror Manual Therapy Treatment Soft Tissue Mobilization 6 Body Location SOR Mobilization Type Sustained Pressure 4 Body Location biceps Mobilization Type Rolling 2 Body Location LS, UT & scalenes Mobilization Type Myofascial Release Rolling Sustained Pressure Comments R; w/active chin tuck and lat head tilt 1 Body Location deltoid R Mobilization Type Myofascial Release Rolling Sustained Pressure Intensity/Depth Moderate Body Position Supine Joint Mobilizations GH Joint GH Direction post glide & translation, inf glide & translation & lat glide FM PT-OP-R Modalities Start: 01/08/18 13:37 Freq: Status: Active Protocol: Document 07/11/18 16:12 [facility] (Rec: 07/11/18 16:17 [facility] [id number]) Hot Pack/Cold Pack Treatment Hot Pack Location cervical & R shoulder Treatment Duration (minutes) 15 PT-OP-T Assessment and Plan Start: 01/08/18 13:37 Freq: Status: Active Protocol: Document 07/11/18 16:12 [facility] (Rec: 07/11/18 16:17 [facility] [id number]) Physical Therapy Assessment Goals strength Impairment strength Short Term Goal (STG) indep with HEP STG Duration - achieved progressing Detention Goal (LTG) 5/5 UE strength to allow pt to do gardening & house activities without pain. LTG Duration 07/21/18 Two Impairment ROM Short Term Goal (STG) Pt will be able to open and close jaw without deviations STG Duration achieved Oil Gas And Pipe Tester Goal (LTG) WNL cervical ROM to allow pt to do ADLs without pain or difficulty and report no difficulty with driving LTG Duration 07/21/18 Assessment Summary Assessment Pt improved with mechanics for lifting iwth cueing. Her soft tissue mobility of her neck was much improved. Physical Therapy Plan Frequency and Duration Frequency of Treatment 1-2x/Week Duration of Treatment 2 months Plan of Care Start Date 05/21/18 Plan of Care End Date 07/21/18 Next Visit Focus/Plan Next Note Type Progress Note Next Visit Plan New POC; cont to work on reaching mechanics
--- NOTE | 2018-07-18 15:40 | PT.OTN ---
Current Diagnoses Other specified disorders of temporomandibular joint (07/18/18) Physical Therapy Treatment Note PT-OP-A Visit Information Start: 01/08/18 13:37 Freq: Status: Active Protocol: Document 07/18/18 14:43 [facility] (Rec: 07/18/18 15:40 [facility] [id number]) Out-Patient Physical Therapy Visit Information Visit Information Visit Type Treatment Note Visit Note 15 total Visit Start Time 14:45 Visit Stop Time 15:45 Total Visit Minutes 60 Visit Number 07/31 Number of GUN TESTER Visits 0 PT-OP-B Current Condition Start: 01/08/18 13:37 Freq: Status: Active Protocol: Document 05/21/18 10:27 [facility] (Rec: 05/21/18 11:52 [facility] [id number]) Current Condition History of Current Condition Onset Date decades History of Current Condition Jaw is doing well and no more popping. Pt reports neck pain has lasted a couple decades. Reports she had a couple falls . One in 1999 where she hit her R side and R shoulder, back & neck [place] Reports a couple other falls that gave her a problem. Reports now neck pain into R> L shoulder. Dizziness has been better recently been d/t dec in BP meds. Has had some FARLEY but got sick a couple weeks ago and d/t not getting better she started antibotics. FARLEY was during feeling sick. Last one was 2 days ago. She thinks it may have to do with being still sick. Prior Treatments and Tests PT for TMD; chiropractor did x -rays last year- stopped seeing chiro during PT- gives temporary relief for about 1.5 days then tightens back up. When went in 3x/week and was feeling better when consistently going in. Treatment Goals Patient/Caregiver Goals Don't want pain to get worse, wants to have freedom to move head, doesn't want it to prevent her from driving, gardening & day to day activities. PT-OP-C Subjective Start: 01/08/18 13:37 Freq: Status: Active Protocol: Document 07/18/18 14:43 [facility] (Rec: 07/18/18 15:40 [facility] [id number]) OP-PT Subjective Patient Comments Patient Comments Pt reports feeling pretty good. Reports she said she went to piliates again and felt better this time. Pt reports hiked 5 miles. Patient Reported Progress Improving PT-OP-F Manual Assessment Start: 05/21/18 07:27 Freq: Status: Active Protocol: Document 05/21/18 10:27 [facility] (Rec: 05/21/18 11:52 [facility] [id number]) Manual Assessments Soft Tissue Assessment Soft Tissue Mobility Assessment tightness throughout the cervical region especially ant like scalenes & SCM; inc tightness of cervical parapsinals, UT, LS Joint Mobility Assessment Joint Mobility Assessment Dec thoracic rotation B; elevated 1st ribs B PT-OP-J Posture/Palpation/Skin Start: 01/08/18 13:37 Freq: Status: Active Protocol: Document 05/21/18 10:27 [facility] (Rec: 05/21/18 11:53 [facility] [id number]) Posture Evaluation [facility] Postural Classification System Shawn Postural Classifications Anterior/Posterior PT-OP-K Range of Motion Start: 01/08/18 13:37 Freq: Status: Active Protocol: Document 07/18/18 14:43 [facility] (Rec: 07/18/18 15:40 [facility] [id number]) Cervical Spine Range of Motion Cervical Spine Active Degrees Testing Position Sitting Flexion 70 Extension 40 Rotation Left 48 Rotation Right 55 Lateral Flexion Left 37 Lateral Flexion Right 45 Comments stiffness when turning B and ext PT-OP-L Special Tests Start: 05/21/18 07:27 Freq: Status: Active Protocol: Document 05/21/18 10:27 [facility] (Rec: 05/21/18 11:52 [facility] [id number]) Special Tests Cervical Spine Special Tests Traction Test Results gives relief, feels good Vertebral Artery Test Results neg bilat spurlings L&R Test Results neg bilat compression Test Results neg Neural Special Tests- Upper Body radial n Test Results pos on R with end range, sx = pulling ulnar n Test Results neg bilat median n Test Results pos at 90 degrees abd on L, pos at 30 degrees abd on R passive abd Test Results pos on R at 90 degrees PT-OP-M Strength Start: 05/21/18 07:27 Freq: Status: Active Protocol: Document 07/18/18 14:43 [facility] (Rec: 07/18/18 15:40 [facility] [id number]) Shoulder Strength Shoulder Manual Muscle Testing L Flexion 5 Normal Extension 5 Normal External Rotation 5 Normal Internal Rotation 5 Normal R Flexion 5 Normal Extension 4+ Good+ Abduction (C5) 4 Good External Rotation 5 Normal Internal Rotation 5 Normal PT-OP-Q Treatments Start: 01/08/18 13:37 Freq: Status: Active Protocol: Document 07/18/18 14:43 [facility] (Rec: 07/18/18 15:40 [facility] [id number]) Therapeutic Exercises Supine Exercises 2 Supine Exercise Name foam roll: flex, Habd, abd Reps/Minutes 10 each Manual Therapy Treatment Soft Tissue Mobilization 2 Body Location LS, UT, rhomboids Mobilization Type Rolling Intensity/Depth Moderate Body Position Prone Joint Mobilizations 2 Joint general thoracic PA sustained T4-7 Grade III Body Position Prone 1 Joint t1-3 Direction PA FM Comments seated and prone PT-OP-R Modalities Start: 01/08/18 13:37 Freq: Status: Active Protocol: Document 07/18/18 14:43 [facility] (Rec: 07/18/18 15:40 [facility] [id number]) Hot Pack/Cold Pack Treatment Hot Pack Location cervical & R shoulder & thoracic Treatment Duration (minutes) 15 PT-OP-T Assessment and Plan Start: 01/08/18 13:37 Freq: Status: Active Protocol: Document 07/18/18 14:43 [facility] (Rec: 07/18/18 15:40 [facility] [id number]) Physical Therapy Assessment Goals strength Impairment strength Short Term Goal (STG) indep with HEP STG Duration - achieved progressing Skilled Nursing Goal (LTG) 5/5 UE strength to allow pt to do gardening & house activities without pain. LTG Duration 09/12/18 Two Impairment ROM Short Term Goal (STG) Pt will be able to open and close jaw without deviations STG Duration achieved Skilled Nursing Goal (LTG) WNL cervical ROM to allow pt to do ADLs without pain or difficulty and report no difficulty with driving LTG Duration Assessment Summary Assessment Pt had improved ext to 60 deg after thoracic mobs. She has significant tightness and lack of mobility in thoracic spine during cervical ROM, especailly in upper thoracic. She is improving with strength & ROM, but is still limited with abd of R shoulder. Physical Therapy Plan Frequency and Duration Frequency of Treatment 1-2x/Week Duration of Treatment 2 months Plan of Care Start Date 07/18/18 Plan of Care End Date 09/18/18 Therapeutic Interventions Therapeutic Interventions Aquatic Therapy Home Exercise Program Joint Mobilizations Manual Therapy Neuromuscular Re-education Self-Care/Home Management Soft Tissue Mobilization Taping Therapeutic Activities Therapeutic Exercises Modalities Cold Pack/Ice Massage Electric Stimulation Hot Packs Infrared Therapy Iontophoresis Traction- Mechanical Ultrasound Next Visit Focus/Plan Next Note Type Treatment Note Next Visit Plan Cont to work on thoracic spine mobility for rotation & ext
--- NOTE | 2018-07-18 15:41 | PT.OPPOC ---
Current Diagnoses Other specified disorders of temporomandibular joint (07/18/18) Provider Visit Care Team Role Provider Type ELSIE Martinez Primary Care Provider Non-Staff Specialty: Medical Address: [address] [place] [address], [id number] Email: Hugh Dallas MD Attending Provider Physician Specialty: Ear, Nose, Throat Address: [address] [place] [address], [id number] Email: Plan Of Care PT-OP-T Assessment and Plan Start: 01/08/18 13:37 Freq: Status: Active Protocol: Document 07/18/18 14:43 [facility] (Rec: 07/18/18 15:40 [facility] [id number]) Physical Therapy Assessment Goals strength Impairment strength Short Term Goal (STG) indep with HEP STG Duration - achieved progressing Jail Goal (LTG) 5/5 UE strength to allow pt to do gardening & house activities without pain. LTG Duration 09/12/18 Two Impairment ROM Short Term Goal (STG) Pt will be able to open and close jaw without deviations STG Duration achieved Test Engine Evaluator Goal (LTG) WNL cervical ROM to allow pt to do ADLs without pain or difficulty and report no difficulty with driving LTG Duration Assessment Summary Assessment Pt had improved ext to 60 deg after thoracic mobs. She has significant tightness and lack of mobility in thoracic spine during cervical ROM, especailly in upper thoracic. She is improving with strength & ROM, but is still limited with abd of R shoulder. Physical Therapy Plan Frequency and Duration Frequency of Treatment 1-2x/Week Duration of Treatment 2 months Plan of Care Start Date 07/18/18 Plan of Care End Date 09/18/18 Therapeutic Interventions Therapeutic Interventions Aquatic Therapy Home Exercise Program Joint Mobilizations Manual Therapy Neuromuscular Re-education Self-Care/Home Management Soft Tissue Mobilization Taping Therapeutic Activities Therapeutic Exercises Modalities Cold Pack/Ice Massage Electric Stimulation Hot Packs Infrared Therapy Iontophoresis Traction- Mechanical Ultrasound Next Visit Focus/Plan Next Note Type Treatment Note Next Visit Plan Cont to work on thoracic spine mobility for rotation & ext Plan of Care Dates Plan of Care Start Date 07/18/18 Plan of Care End Date 09/18/18 Please Sign and Return: I have reviewed this Plan of Care and certify that the skilled therapy services above are required to meet the patient?s needs. Physician Signature Date Printed Name and Credentials Clinical Instructor Signature Printed Name and Credentials
--- NOTE | 2018-07-29 17:12 | PT.OTN ---
Current Diagnoses Other specified disorders of temporomandibular joint (07/29/18) Physical Therapy Treatment Note PT-OP-A Visit Information Start: 01/08/18 13:37 Freq: Status: Active Protocol: Document 07/29/18 17:05 [facility] (Rec: 07/29/18 17:11 [facility] [id number]) Out-Patient Physical Therapy Visit Information Visit Information Visit Type Treatment Note Visit Note 1 visit 2018 Visit Start Time 10:35 Visit Stop Time 11:30 Total Visit Minutes 55 Visit Number 08/31 Number of COLLEGE AND CAREER COUNSELOR Visits 0 PT-OP-B Current Condition Start: 01/08/18 13:37 Freq: Status: Active Protocol: Document 05/21/18 10:27 [facility] (Rec: 05/21/18 11:52 [facility] [id number]) Current Condition History of Current Condition Onset Date decades History of Current Condition Jaw is doing well and no more popping. Pt reports neck pain has lasted a couple decades. Reports she had a couple falls . One in 1999 where she hit her R side and R shoulder, back & neck [place] Reports a couple other falls that gave her a problem. Reports now neck pain into R> L shoulder. Dizziness has been better recently been d/t dec in BP meds. Has had some FARLEY but got sick a couple weeks ago and d/t not getting better she started antibotics. FARLEY was during feeling sick. Last one was 2 days ago. She thinks it may have to do with being still sick. Prior Treatments and Tests PT for TMD; chiropractor did x -rays last year- stopped seeing chiro during PT- gives temporary relief for about 1.5 days then tightens back up. When went in 3x/week and was feeling better when consistently going in. Treatment Goals Patient/Caregiver Goals Don't want pain to get worse, wants to have freedom to move head, doesn't want it to prevent her from driving, gardening & day to day activities. PT-OP-C Subjective Start: 01/08/18 13:37 Freq: Status: Active Protocol: Document 07/29/18 17:05 [facility] (Rec: 07/29/18 17:11 [facility] [id number]) OP-PT Subjective Patient Comments Patient Comments Pt reports overall she is feeling pretty good. Notices pain with some WB activities in yoga. PT-OP-F Manual Assessment Start: 05/21/18 07:27 Freq: Status: Active Protocol: Document 05/21/18 10:27 [facility] (Rec: 05/21/18 11:52 [facility] [id number]) Manual Assessments Soft Tissue Assessment Soft Tissue Mobility Assessment tightness throughout the cervical region especially ant like scalenes & SCM; inc tightness of cervical parapsinals, UT, LS Joint Mobility Assessment Joint Mobility Assessment Dec thoracic rotation B; elevated 1st ribs B PT-OP-J Posture/Palpation/Skin Start: 01/08/18 13:37 Freq: Status: Active Protocol: Document 05/21/18 10:27 [facility] (Rec: 05/21/18 11:53 [facility] [id number]) Posture Evaluation [facility] Postural Classification System Shawn Postural Classifications Anterior/Posterior PT-OP-K Range of Motion Start: 01/08/18 13:37 Freq: Status: Active Protocol: Document 07/18/18 14:43 [facility] (Rec: 07/18/18 15:40 [facility] [id number]) Cervical Spine Range of Motion Cervical Spine Active Degrees Testing Position Sitting Flexion 70 Extension 40 Rotation Left 48 Rotation Right 55 Lateral Flexion Left 37 Lateral Flexion Right 45 Comments stiffness when turning B and ext PT-OP-L Special Tests Start: 05/21/18 07:27 Freq: Status: Active Protocol: Document 05/21/18 10:27 [facility] (Rec: 05/21/18 11:52 [facility] [id number]) Special Tests Cervical Spine Special Tests Traction Test Results gives relief, feels good Vertebral Artery Test Results neg bilat spurlings L&R Test Results neg bilat compression Test Results neg Neural Special Tests- Upper Body radial n Test Results pos on R with end range, sx = pulling ulnar n Test Results neg bilat median n Test Results pos at 90 degrees abd on L, pos at 30 degrees abd on R passive abd Test Results pos on R at 90 degrees PT-OP-M Strength Start: 05/21/18 07:27 Freq: Status: Active Protocol: Document 07/18/18 14:43 [facility] (Rec: 07/18/18 15:40 [facility] [id number]) Shoulder Strength Shoulder Manual Muscle Testing L Flexion 5 Normal Extension 5 Normal External Rotation 5 Normal Internal Rotation 5 Normal R Flexion 5 Normal Extension 4+ Good+ Abduction (C5) 4 Good External Rotation 5 Normal Internal Rotation 5 Normal PT-OP-Q Treatments Start: 01/08/18 13:37 Freq: Status: Active Protocol: Document 07/29/18 17:05 [facility] (Rec: 07/29/18 17:11 [facility] [id number]) Manual Therapy Treatment Soft Tissue Mobilization 6 Body Location SOR Mobilization Type Sustained Pressure 4 Body Location subscapularis Mobilization Type Rolling Sustained Pressure 3 Body Location cervical paraspinals Mobilization Type Rolling Intensity/Depth Moderate 2 Body Location LS, UT, rhomboids Mobilization Type Rolling Intensity/Depth Moderate Body Position Prone Joint Mobilizations scapula Joint scapula Direction med & lat tilts, med & lat glides & downward Self-Care/Home Management Treatment Education Other Education review of scap position for leaning over onto arms and applying to yoga class for WB activities like cobra and downward dog. Discussed avoiding any activity that puts too much stress into that region. PT-OP-R Modalities Start: 01/08/18 13:37 Freq: Status: Active Protocol: Document 07/29/18 17:05 [facility] (Rec: 07/29/18 17:12 [facility] [id number]) Hot Pack/Cold Pack Treatment Hot Pack Location cervical & R shoulder & thoracic Treatment Duration (minutes) 15 PT-OP-T Assessment and Plan Start: 01/08/18 13:37 Freq: Status: Active Protocol: Document 07/29/18 17:05 [facility] (Rec: 07/29/18 17:11 [facility] [id number]) Physical Therapy Assessment Goals strength Impairment strength Short Term Goal (STG) indep with HEP STG Duration - achieved progressing Residential Goal (LTG) 5/5 UE strength to allow pt to do gardening & house activities without pain. LTG Duration 09/12/18 Two Impairment ROM Short Term Goal (STG) Pt will be able to open and close jaw without deviations STG Duration achieved Demand Planner Goal (LTG) WNL cervical ROM to allow pt to do ADLs without pain or difficulty and report no difficulty with driving LTG Duration Assessment Summary Assessment Pt had dec pain after treatment and came in with good ext in cervical region after last treatment. She cont to have impaired R side mechanics but can improve with cueing. Physical Therapy Plan Frequency and Duration Frequency of Treatment 1-2x/Week Duration of Treatment 2 months Plan of Care Start Date 07/18/18 Plan of Care End Date 09/18/18 Next Visit Focus/Plan Next Note Type Treatment Note Next Visit Plan work on thoracic mobility & re -check limits of ROm
--- NOTE | 2018-08-05 16:50 | PT.OTN ---
Current Diagnoses Other specified disorders of temporomandibular joint (08/05/18) Physical Therapy Treatment Note PT-OP-A Visit Information Start: 01/08/18 13:37 Freq: Status: Active Protocol: Document 08/05/18 16:44 [facility] (Rec: 08/05/18 16:50 [facility] [id number]) Out-Patient Physical Therapy Visit Information Visit Information Visit Type Treatment Note Visit Note 2 visit 2019 Visit Start Time 10:35 Visit Stop Time 11:30 Total Visit Minutes 55 Visit Number 3/ Number of VP INFORMATION TECHNOLOGY Visits 0 PT-OP-B Current Condition Start: 01/08/18 13:37 Freq: Status: Active Protocol: Document 05/21/18 10:27 [facility] (Rec: 05/21/18 11:52 [facility] [id number]) Current Condition History of Current Condition Onset Date decades History of Current Condition Jaw is doing well and no more popping. Pt reports neck pain has lasted a couple decades. Reports she had a couple falls . One in 1999 where she hit her R side and R shoulder, back & neck [place] Reports a couple other falls that gave her a problem. Reports now neck pain into R> L shoulder. Dizziness has been better recently been d/t dec in BP meds. Has had some FARLEY but got sick a couple weeks ago and d/t not getting better she started antibotics. FARLEY was during feeling sick. Last one was 2 days ago. She thinks it may have to do with being still sick. Prior Treatments and Tests PT for TMD; chiropractor did x -rays last year- stopped seeing chiro during PT- gives temporary relief for about 1.5 days then tightens back up. When went in 3x/week and was feeling better when consistently going in. Treatment Goals Patient/Caregiver Goals Don't want pain to get worse, wants to have freedom to move head, doesn't want it to prevent her from driving, gardening & day to day activities. PT-OP-C Subjective Start: 01/08/18 13:37 Freq: Status: Active Protocol: Document 08/05/18 16:44 [facility] (Rec: 08/05/18 16:50 [facility] [id number]) OP-PT Subjective Patient Comments Patient Comments Pt reports overall neck is doing well. Notices pain that radiates from scapula to R brachium that still occasionally bothers her. PT-OP-F Manual Assessment Start: 05/21/18 07:27 Freq: Status: Active Protocol: Document 05/21/18 10:27 [facility] (Rec: 05/21/18 11:52 [facility] [id number]) Manual Assessments Soft Tissue Assessment Soft Tissue Mobility Assessment tightness throughout the cervical region especially ant like scalenes & SCM; inc tightness of cervical parapsinals, UT, LS Joint Mobility Assessment Joint Mobility Assessment Dec thoracic rotation B; elevated 1st ribs B PT-OP-J Posture/Palpation/Skin Start: 01/08/18 13:37 Freq: Status: Active Protocol: Document 05/21/18 10:27 [facility] (Rec: 05/21/18 11:53 [facility] [id number]) Posture Evaluation Shawn Postural Classification System Shawn Postural Classifications Anterior/Posterior PT-OP-K Range of Motion Start: 01/08/18 13:37 Freq: Status: Active Protocol: Document 07/18/18 14:43 [facility] (Rec: 07/18/18 15:40 [facility] [id number]) Cervical Spine Range of Motion Cervical Spine Active Degrees Testing Position Sitting Flexion 70 Extension 40 Rotation Left 48 Rotation Right 55 Lateral Flexion Left 37 Lateral Flexion Right 45 Comments stiffness when turning B and ext PT-OP-L Special Tests Start: 05/21/18 07:27 Freq: Status: Active Protocol: Document 05/21/18 10:27 [facility] (Rec: 05/21/18 11:52 [facility] [id number]) Special Tests Cervical Spine Special Tests Traction Test Results gives relief, feels good Vertebral Artery Test Results neg bilat spurlings L&R Test Results neg bilat compression Test Results neg Neural Special Tests- Upper Body radial n Test Results pos on R with end range, sx = pulling ulnar n Test Results neg bilat median n Test Results pos at 90 degrees abd on L, pos at 30 degrees abd on R passive abd Test Results pos on R at 90 degrees PT-OP-M Strength Start: 05/21/18 07:27 Freq: Status: Active Protocol: Document 07/18/18 14:43 [facility] (Rec: 07/18/18 15:40 [facility] [id number]) Shoulder Strength Shoulder Manual Muscle Testing L Flexion 5 Normal Extension 5 Normal External Rotation 5 Normal Internal Rotation 5 Normal R Flexion 5 Normal Extension 4+ Good+ Abduction (C5) 4 Good External Rotation 5 Normal Internal Rotation 5 Normal PT-OP-Q Treatments Start: 01/08/18 13:37 Freq: Status: Active Protocol: Document 08/05/18 16:44 [facility] (Rec: 08/05/18 16:50 [facility] [id number]) Manual Therapy Treatment Soft Tissue Mobilization 6 Body Location SOR Mobilization Type Sustained Pressure 4 Body Location subscapularis Mobilization Type Rolling Sustained Pressure 2 Body Location LS, UT, rhomboids Mobilization Type Rolling Intensity/Depth Moderate Body Position Prone Joint Mobilizations scapula Joint scapula Direction med & lat tilts, med & lat glides & downward 2 Joint general thoracic PA sustained T4-7 Grade III Body Position Prone Comments Also specific T5 & 7 UPA. PT-OP-R Modalities Start: 01/08/18 13:37 Freq: Status: Active Protocol: Document 08/05/18 16:44 [facility] (Rec: 08/05/18 16:50 [facility] [id number]) Hot Pack/Cold Pack Treatment Hot Pack Location cervical & R shoulder & thoracic Treatment Duration (minutes) 15 PT-OP-T Assessment and Plan Start: 01/08/18 13:37 Freq: Status: Active Protocol: Document 08/05/18 16:44 [facility] (Rec: 08/05/18 16:50 [facility] [id number]) Physical Therapy Assessment Goals strength Impairment strength Short Term Goal (STG) indep with HEP STG Duration - achieved progressing Alf Goal (LTG) 5/5 UE strength to allow pt to do gardening & house activities without pain. LTG Duration 09/12/18 Two Impairment ROM Short Term Goal (STG) Pt will be able to open and close jaw without deviations STG Duration achieved Alf Goal (LTG) WNL cervical ROM to allow pt to do ADLs without pain or difficulty and report no difficulty with driving LTG Duration Assessment Summary Assessment Pt cont to do well with ext & flex. She is limited w/L SB d/ t R sided tightness and rotations she gets about 60 deg. She has significant tenderness adn limitation w/PA mobility of transverse process & ribs 5 &7. Physical Therapy Plan Frequency and Duration Frequency of Treatment 1-2x/Week Duration of Treatment 2 months Plan of Care Start Date 07/18/18 Plan of Care End Date 09/18/18 Next Visit Focus/Plan Next Note Type Treatment Note Next Visit Plan Cont to work on thoracic mobility, depression of ribs on R side
--- NOTE | 2018-08-15 15:45 | PT.OTN ---
Current Diagnoses Other specified disorders of temporomandibular joint (08/15/18) Physical Therapy Treatment Note PT-OP-A Visit Information Start: 01/08/18 13:37 Freq: Status: Active Protocol: Document 08/05/18 16:44 [facility] (Rec: 08/05/18 16:50 [facility] [id number]) Out-Patient Physical Therapy Visit Information Visit Information Visit Type Treatment Note Visit Note 2 visit 2019 Visit Start Time 10:35 Visit Stop Time 11:30 Total Visit Minutes 55 Visit Number 3/ Number of ELECTRIC POWERLINE EXAMINER Visits 0 PT-OP-B Current Condition Start: 01/08/18 13:37 Freq: Status: Active Protocol: Document 05/21/18 10:27 [facility] (Rec: 05/21/18 11:52 [facility] [id number]) Current Condition History of Current Condition Onset Date decades History of Current Condition Jaw is doing well and no more popping. Pt reports neck pain has lasted a couple decades. Reports she had a couple falls . One in 1999 where she hit her R side and R shoulder, back & neck [place] Reports a couple other falls that gave her a problem. Reports now neck pain into R> L shoulder. Dizziness has been better recently been d/t dec in BP meds. Has had some FARLEY but got sick a couple weeks ago and d/t not getting better she started antibotics. FARLEY was during feeling sick. Last one was 2 days ago. She thinks it may have to do with being still sick. Prior Treatments and Tests PT for TMD; chiropractor did x -rays last year- stopped seeing chiro during PT- gives temporary relief for about 1.5 days then tightens back up. When went in 3x/week and was feeling better when consistently going in. Treatment Goals Patient/Caregiver Goals Don't want pain to get worse, wants to have freedom to move head, doesn't want it to prevent her from driving, gardening & day to day activities. PT-OP-C Subjective Start: 01/08/18 13:37 Freq: Status: Active Protocol: Document 08/15/18 13:47 [facility] (Rec: 08/15/18 15:41 [facility] [id number]) OP-PT Subjective Patient Comments Patient Comments Pt reports soreness that lasted about a day after last session but felt good until she helped move a boat from to Wed. Reports she had to do a lot of reaching and cramped spaces. PT-OP-F Manual Assessment Start: 05/21/18 07:27 Freq: Status: Active Protocol: Document 05/21/18 10:27 [facility] (Rec: 05/21/18 11:52 [facility] [id number]) Manual Assessments Soft Tissue Assessment Soft Tissue Mobility Assessment tightness throughout the cervical region especially ant like scalenes & SCM; inc tightness of cervical parapsinals, UT, LS Joint Mobility Assessment Joint Mobility Assessment Dec thoracic rotation B; elevated 1st ribs B PT-OP-J Posture/Palpation/Skin Start: 01/08/18 13:37 Freq: Status: Active Protocol: Document 05/21/18 10:27 [facility] (Rec: 05/21/18 11:53 [facility] [id number]) Posture Evaluation [facility] Postural Classification System Shawn Postural Classifications Anterior/Posterior PT-OP-K Range of Motion Start: 01/08/18 13:37 Freq: Status: Active Protocol: Document 07/18/18 14:43 [facility] (Rec: 07/18/18 15:40 [facility] [id number]) Cervical Spine Range of Motion Cervical Spine Active Degrees Testing Position Sitting Flexion 70 Extension 40 Rotation Left 48 Rotation Right 55 Lateral Flexion Left 37 Lateral Flexion Right 45 Comments stiffness when turning B and ext PT-OP-L Special Tests Start: 05/21/18 07:27 Freq: Status: Active Protocol: Document 05/21/18 10:27 [facility] (Rec: 05/21/18 11:52 [facility] [id number]) Special Tests Cervical Spine Special Tests Traction Test Results gives relief, feels good Vertebral Artery Test Results neg bilat spurlings L&R Test Results neg bilat compression Test Results neg Neural Special Tests- Upper Body radial n Test Results pos on R with end range, sx = pulling ulnar n Test Results neg bilat median n Test Results pos at 90 degrees abd on L, pos at 30 degrees abd on R passive abd Test Results pos on R at 90 degrees PT-OP-M Strength Start: 05/21/18 07:27 Freq: Status: Active Protocol: Document 07/18/18 14:43 [facility] (Rec: 07/18/18 15:40 [facility] [id number]) Shoulder Strength Shoulder Manual Muscle Testing L Flexion 5 Normal Extension 5 Normal External Rotation 5 Normal Internal Rotation 5 Normal R Flexion 5 Normal Extension 4+ Good+ Abduction (C5) 4 Good External Rotation 5 Normal Internal Rotation 5 Normal PT-OP-Q Treatments Start: 01/08/18 13:37 Freq: Status: Active Protocol: Document 08/15/18 13:47 [facility] (Rec: 08/15/18 15:41 [facility] [id number]) Manual Therapy Treatment Soft Tissue Mobilization 6 Body Location SOR Mobilization Type Sustained Pressure 4 Body Location subscapularis Mobilization Type Rolling Sustained Pressure 2 Body Location LS, UT, rhomboids Mobilization Type Rolling Intensity/Depth Moderate Body Position Prone 1 Body Location supraspinatus tendon Comments TFM Joint Mobilizations GH Joint GH Direction post glide & translation, inf glide & translation & lat glide FM 1 Joint C2 Direction UPA L FM PT-OP-R Modalities Start: 01/08/18 13:37 Freq: Status: Active Protocol: Document 08/15/18 13:47 [facility] (Rec: 08/15/18 15:41 [facility] [id number]) Electric Stimulation Electric Stimulation Interferential Current (IFC) Body Location R shoulder & scapula Duration (Minutes) 15 Intensity 12 Combined With Heat/Cold Hot Pack Hot Pack/Cold Pack Treatment Hot Pack Location cervical & R shoulder & thoracic Treatment Duration (minutes) 15 PT-OP-T Assessment and Plan Start: 01/08/18 13:37 Freq: Status: Active Protocol: Document 08/15/18 13:47 [facility] (Rec: 08/15/18 15:41 [facility] [id number]) Physical Therapy Assessment Goals strength Impairment strength Short Term Goal (STG) indep with HEP STG Duration - achieved progressing Alf Goal (LTG) 5/5 UE strength to allow pt to do gardening & house activities without pain. LTG Duration 09/12/18 Two Impairment ROM Short Term Goal (STG) Pt will be able to open and close jaw without deviations STG Duration achieved Alf Goal (LTG) WNL cervical ROM to allow pt to do ADLs without pain or difficulty and report no difficulty with driving LTG Duration Assessment Summary Assessment Pt had improved L rotation from about 50% to WNL. Improved shoulder IR without pain after manual treatment. She is cont to do her strengthening exercises without pain. Physical Therapy Plan Frequency and Duration Frequency of Treatment 1-2x/Week Duration of Treatment 2 months Plan of Care Start Date 07/18/18 Plan of Care End Date 09/18/18 Next Visit Focus/Plan Next Note Type Treatment Note Next Visit Plan Cont to advance shoulder motion as tolerated to dec pain.
--- NOTE | 2018-08-22 16:09 | PT.OTN ---
Current Diagnoses Other specified disorders of temporomandibular joint (08/22/18) Physical Therapy Treatment Note PT-OP-A Visit Information Start: 01/08/18 13:37 Freq: Status: Active Protocol: Document 08/05/18 16:44 [facility] (Rec: 08/05/18 16:50 [facility] [id number]) Out-Patient Physical Therapy Visit Information Visit Information Visit Type Treatment Note Visit Note 2 visit 2019 Visit Start Time 10:35 Visit Stop Time 11:30 Total Visit Minutes 55 Visit Number 09/28 Number of WATER PLANT PUMP OPERATOR Visits 0 PT-OP-B Current Condition Start: 01/08/18 13:37 Freq: Status: Active Protocol: Document 05/21/18 10:27 [facility] (Rec: 05/21/18 11:52 [facility] [id number]) Current Condition History of Current Condition Onset Date decades History of Current Condition Jaw is doing well and no more popping. Pt reports neck pain has lasted a couple decades. Reports she had a couple falls . One in 1999 where she hit her R side and R shoulder, back & neck [place] Reports a couple other falls that gave her a problem. Reports now neck pain into R> L shoulder. Dizziness has been better recently been d/t dec in BP meds. Has had some FARLEY but got sick a couple weeks ago and d/t not getting better she started antibotics. FARLEY was during feeling sick. Last one was 2 days ago. She thinks it may have to do with being still sick. Prior Treatments and Tests PT for TMD; chiropractor did x -rays last year- stopped seeing chiro during PT- gives temporary relief for about 1.5 days then tightens back up. When went in 3x/week and was feeling better when consistently going in. Treatment Goals Patient/Caregiver Goals Don't want pain to get worse, wants to have freedom to move head, doesn't want it to prevent her from driving, gardening & day to day activities. PT-OP-C Subjective Start: 01/08/18 13:37 Freq: Status: Active Protocol: Document 08/22/18 15:47 [facility] (Rec: 08/22/18 16:09 [facility] [id number]) OP-PT Subjective Patient Comments Patient Comments Pt reports she is overall doing well but still gets achy /sore. PT-OP-F Manual Assessment Start: 05/21/18 07:27 Freq: Status: Active Protocol: Document 05/21/18 10:27 [facility] (Rec: 05/21/18 11:52 [facility] [id number]) Manual Assessments Soft Tissue Assessment Soft Tissue Mobility Assessment tightness throughout the cervical region especially ant like scalenes & SCM; inc tightness of cervical parapsinals, UT, LS Joint Mobility Assessment Joint Mobility Assessment Dec thoracic rotation B; elevated 1st ribs B PT-OP-J Posture/Palpation/Skin Start: 01/08/18 13:37 Freq: Status: Active Protocol: Document 05/21/18 10:27 [facility] (Rec: 05/21/18 11:53 [facility] [id number]) Posture Evaluation Shawn Postural Classification System Shawn Postural Classifications Anterior/Posterior PT-OP-K Range of Motion Start: 01/08/18 13:37 Freq: Status: Active Protocol: Document 07/18/18 14:43 [facility] (Rec: 07/18/18 15:40 [facility] [id number]) Cervical Spine Range of Motion Cervical Spine Active Degrees Testing Position Sitting Flexion 70 Extension 40 Rotation Left 48 Rotation Right 55 Lateral Flexion Left 37 Lateral Flexion Right 45 Comments stiffness when turning B and ext PT-OP-L Special Tests Start: 05/21/18 07:27 Freq: Status: Active Protocol: Document 05/21/18 10:27 [facility] (Rec: 05/21/18 11:52 [facility] [id number]) Special Tests Cervical Spine Special Tests Traction Test Results gives relief, feels good Vertebral Artery Test Results neg bilat spurlings L&R Test Results neg bilat compression Test Results neg Neural Special Tests- Upper Body radial n Test Results pos on R with end range, sx = pulling ulnar n Test Results neg bilat median n Test Results pos at 90 degrees abd on L, pos at 30 degrees abd on R passive abd Test Results pos on R at 90 degrees PT-OP-M Strength Start: 05/21/18 07:27 Freq: Status: Active Protocol: Document 07/18/18 14:43 [facility] (Rec: 07/18/18 15:40 [facility] [id number]) Shoulder Strength Shoulder Manual Muscle Testing L Flexion 5 Normal Extension 5 Normal External Rotation 5 Normal Internal Rotation 5 Normal R Flexion 5 Normal Extension 4+ Good+ Abduction (C5) 4 Good External Rotation 5 Normal Internal Rotation 5 Normal PT-OP-Q Treatments Start: 01/08/18 13:37 Freq: Status: Active Protocol: Document 08/22/18 15:47 [facility] (Rec: 08/22/18 16:07 [facility] [id number]) Therapeutic Exercises Prone Exercises plank Prone Exercise Name forearms and knees Reps/Minutes 10 sec hold x4 Standing Exercises 4 Standing Exercise Name scap retraction 1 Standing Exercise Name ball circles at wall for scapula stability Comments max cueing Therapeutic Activity Therapeutic Activity 1 Name standing posture edu Manual Therapy Treatment Soft Tissue Mobilization 5 Body Location infraspinatus Mobilization Type Rolling 2 Body Location LS, UT, rhomboids Mobilization Type Rolling Intensity/Depth Moderate Body Position Prone PT-OP-R Modalities Start: 01/08/18 13:37 Freq: Status: Active Protocol: Document 08/22/18 15:47 [facility] (Rec: 08/22/18 16:07 [facility] [id number]) Hot Pack/Cold Pack Treatment Hot Pack Location cervical & R shoulder & thoracic Treatment Duration (minutes) 15 PT-OP-T Assessment and Plan Start: 01/08/18 13:37 Freq: Status: Active Protocol: Document 08/22/18 15:47 [facility] (Rec: 08/22/18 16:07 [facility] [id number]) Physical Therapy Assessment Goals strength Impairment strength Short Term Goal (STG) indep with HEP STG Duration - achieved progressing Residential Goal (LTG) 5/5 UE strength to allow pt to do gardening & house activities without pain. LTG Duration 09/12/18 Two Impairment ROM Short Term Goal (STG) Pt will be able to open and close jaw without deviations STG Duration achieved Residential Goal (LTG) WNL cervical ROM to allow pt to do ADLs without pain or difficulty and report no difficulty with driving LTG Duration Assessment Summary Assessment Pt had significant difficulty with scapular stability with ball at wall and WB. Cont require cueing for postural correction. Did not tolerate shoulder mobs today d/t shoulder sensitivity. Physical Therapy Plan Frequency and Duration Frequency of Treatment 1-2x/Week Duration of Treatment 2 months Plan of Care Start Date 07/18/18 Plan of Care End Date 09/18/18 Next Visit Focus/Plan Next Note Type Treatment Note Next Visit Plan cont to work on WB stability
--- NOTE | 2018-08-26 13:34 | PT.OTN ---
Current Diagnoses Other specified disorders of temporomandibular joint (08/26/18) Physical Therapy Treatment Note PT-OP-A Visit Information Start: 01/08/18 13:37 Freq: Status: Active Protocol: Document 08/26/18 13:18 [facility] (Rec: 08/26/18 13:34 [facility] [id number]) Out-Patient Physical Therapy Visit Information Visit Information Visit Type Treatment Note Visit Start Time 11:15 Visit Stop Time 12:10 Total Visit Minutes 55 Visit Number 4/10 Number of DIRECTOR OF DISTANCE LEARNING Visits 0 PT-OP-B Current Condition Start: 01/08/18 13:37 Freq: Status: Active Protocol: Document 05/21/18 10:27 [facility] (Rec: 05/21/18 11:52 [facility] [id number]) Current Condition History of Current Condition Onset Date decades History of Current Condition Jaw is doing well and no more popping. Pt reports neck pain has lasted a couple decades. Reports she had a couple falls . One in 1999 where she hit her R side and R shoulder, back & neck [place] Reports a couple other falls that gave her a problem. Reports now neck pain into R> L shoulder. Dizziness has been better recently been d/t dec in BP meds. Has had some FARLEY but got sick a couple weeks ago and d/t not getting better she started antibotics. FARLEY was during feeling sick. Last one was 2 days ago. She thinks it may have to do with being still sick. Prior Treatments and Tests PT for TMD; chiropractor did x -rays last year- stopped seeing chiro during PT- gives temporary relief for about 1.5 days then tightens back up. When went in 3x/week and was feeling better when consistently going in. Treatment Goals Patient/Caregiver Goals Don't want pain to get worse, wants to have freedom to move head, doesn't want it to prevent her from driving, gardening & day to day activities. PT-OP-C Subjective Start: 01/08/18 13:37 Freq: Status: Active Protocol: Document 08/26/18 13:18 [facility] (Rec: 08/26/18 13:34 [facility] [id number]) OP-PT Subjective Patient Comments Patient Comments Pt reports compliance with exercises. Working on posture but still doesn't feel natural . PT-OP-F Manual Assessment Start: 05/21/18 07:27 Freq: Status: Active Protocol: Document 05/21/18 10:27 [facility] (Rec: 05/21/18 11:52 [facility] [id number]) Manual Assessments Soft Tissue Assessment Soft Tissue Mobility Assessment tightness throughout the cervical region especially ant like scalenes & SCM; inc tightness of cervical parapsinals, UT, LS Joint Mobility Assessment Joint Mobility Assessment Dec thoracic rotation B; elevated 1st ribs B PT-OP-J Posture/Palpation/Skin Start: 01/08/18 13:37 Freq: Status: Active Protocol: Document 05/21/18 10:27 [facility] (Rec: 05/21/18 11:53 [facility] [id number]) Posture Evaluation [facility] Postural Classification System Shawn Postural Classifications Anterior/Posterior PT-OP-K Range of Motion Start: 01/08/18 13:37 Freq: Status: Active Protocol: Document 07/18/18 14:43 [facility] (Rec: 07/18/18 15:40 [facility] [id number]) Cervical Spine Range of Motion Cervical Spine Active Degrees Testing Position Sitting Flexion 70 Extension 40 Rotation Left 48 Rotation Right 55 Lateral Flexion Left 37 Lateral Flexion Right 45 Comments stiffness when turning B and ext PT-OP-L Special Tests Start: 05/21/18 07:27 Freq: Status: Active Protocol: Document 05/21/18 10:27 [facility] (Rec: 05/21/18 11:52 [facility] [id number]) Special Tests Cervical Spine Special Tests Traction Test Results gives relief, feels good Vertebral Artery Test Results neg bilat spurlings L&R Test Results neg bilat compression Test Results neg Neural Special Tests- Upper Body radial n Test Results pos on R with end range, sx = pulling ulnar n Test Results neg bilat median n Test Results pos at 90 degrees abd on L, pos at 30 degrees abd on R passive abd Test Results pos on R at 90 degrees PT-OP-M Strength Start: 05/21/18 07:27 Freq: Status: Active Protocol: Document 07/18/18 14:43 [facility] (Rec: 07/18/18 15:40 [facility] [id number]) Shoulder Strength Shoulder Manual Muscle Testing L Flexion 5 Normal Extension 5 Normal External Rotation 5 Normal Internal Rotation 5 Normal R Flexion 5 Normal Extension 4+ Good+ Abduction (C5) 4 Good External Rotation 5 Normal Internal Rotation 5 Normal PT-OP-Q Treatments Start: 01/08/18 13:37 Freq: Status: Active Protocol: Document 08/26/18 13:18 [facility] (Rec: 08/26/18 13:34 [facility] [id number]) Therapeutic Exercises Prone Exercises plank Prone Exercise Name forearms and knees Reps/Minutes 15 sec hold x2 Comments attempted on feet but pt unable Standing Exercises bodyblade Standing Exercise Name body blade-at side, elbow flex at 90, flex 60 deg, abd 45 deg Side right Reps/Minutes 30 sec ea Comments focus on scap position 4 Standing Exercise Name scap retraction 1 Standing Exercise Name circles for scapula stability Other Exercises dyane pose Other Exercise Name dayne pose fwd and to L Reps/Minutes 30 sec 1 Other Exercise Name quadruped alt arm lift progressed to alt LE lift to alt/opp arm/leg lift Side bilateral Reps/Minutes 10 Therapeutic Activity Therapeutic Activity 1 Name standing posture edu Comments edu on using diagrams how different mm may be activated based on posture. Manual Therapy Treatment Soft Tissue Mobilization 3 Body Location pec R Mobilization Type Rolling 2 Body Location LS, UT along scap border Mobilization Type Rolling Intensity/Depth Moderate Body Position Prone PT-OP-R Modalities Start: 01/08/18 13:37 Freq: Status: Active Protocol: Document 08/26/18 13:18 [facility] (Rec: 08/26/18 13:34 [facility] [id number]) Hot Pack/Cold Pack Treatment Hot Pack Location cervical & R shoulder & thoracic Treatment Duration (minutes) 15 PT-OP-T Assessment and Plan Start: 01/08/18 13:37 Freq: Status: Active Protocol: Document 08/26/18 13:18 [facility] (Rec: 08/26/18 13:34 [facility] [id number]) Physical Therapy Assessment Goals strength Impairment strength Short Term Goal (STG) indep with HEP STG Duration - achieved progressing Historical Archeologist Goal (LTG) 5/5 UE strength to allow pt to do gardening & house activities without pain. LTG Duration 09/12/18 Two Impairment ROM Short Term Goal (STG) Pt will be able to open and close jaw without deviations STG Duration achieved Historical Archeologist Goal (LTG) WNL cervical ROM to allow pt to do ADLs without pain or difficulty and report no difficulty with driving LTG Duration Assessment Summary Assessment Pt improved with ability to maintain good scapular stability in WB position.S he had difficulty rolling ball on wall but worked on scap motion with UE at about 90 with scapular clock exercise. Cont UT/LS tightness. Physical Therapy Plan Frequency and Duration Frequency of Treatment 1-2x/Week Duration of Treatment 2 months Plan of Care Start Date 07/18/18 Plan of Care End Date 09/18/18 Next Visit Focus/Plan Next Note Type Treatment Note Next Visit Plan Cont to advance scap stability
--- NOTE | 2018-09-08 13:18 | PT.OTN ---
Current Diagnoses Other specified disorders of temporomandibular joint (09/08/18) Physical Therapy Treatment Note PT-OP-A Visit Information Start: 01/08/18 13:37 Freq: Status: Active Protocol: Document 09/08/18 10:47 [facility] (Rec: 09/08/18 13:18 [facility] [id number]) Out-Patient Physical Therapy Visit Information Visit Information Visit Type Treatment Note Visit Start Time 10:30 Visit Stop Time 11:25 Total Visit Minutes 55 Visit Number 07/31 Number of BOILERMAKER MECHANIC Visits 0 PT-OP-B Current Condition Start: 01/08/18 13:37 Freq: Status: Active Protocol: Document 05/21/18 10:27 [facility] (Rec: 05/21/18 11:52 [facility] [id number]) Current Condition History of Current Condition Onset Date decades History of Current Condition Jaw is doing well and no more popping. Pt reports neck pain has lasted a couple decades. Reports she had a couple falls . One in 1999 where she hit her R side and R shoulder, back & neck [place] Reports a couple other falls that gave her a problem. Reports now neck pain into R> L shoulder. Dizziness has been better recently been d/t dec in BP meds. Has had some FARLEY but got sick a couple weeks ago and d/t not getting better she started antibotics. FARLEY was during feeling sick. Last one was 2 days ago. She thinks it may have to do with being still sick. Prior Treatments and Tests PT for TMD; chiropractor did x -rays last year- stopped seeing chiro during PT- gives temporary relief for about 1.5 days then tightens back up. When went in 3x/week and was feeling better when consistently going in. Treatment Goals Patient/Caregiver Goals Don't want pain to get worse, wants to have freedom to move head, doesn't want it to prevent her from driving, gardening & day to day activities. PT-OP-C Subjective Start: 01/08/18 13:37 Freq: Status: Active Protocol: Document 09/08/18 10:47 [facility] (Rec: 09/08/18 13:18 [facility] [id number]) OP-PT Subjective Patient Comments Patient Comments Pt reports overall improving, but still does less w/RUE. Patient Reported Progress Improving PT-OP-F Manual Assessment Start: 05/21/18 07:27 Freq: Status: Active Protocol: Document 05/21/18 10:27 [facility] (Rec: 05/21/18 11:52 [facility] [id number]) Manual Assessments Soft Tissue Assessment Soft Tissue Mobility Assessment tightness throughout the cervical region especially ant like scalenes & SCM; inc tightness of cervical parapsinals, UT, LS Joint Mobility Assessment Joint Mobility Assessment Dec thoracic rotation B; elevated 1st ribs B PT-OP-J Posture/Palpation/Skin Start: 01/08/18 13:37 Freq: Status: Active Protocol: Document 05/21/18 10:27 [facility] (Rec: 05/21/18 11:53 [facility] [id number]) Posture Evaluation Shawn Postural Classification System Shawn Postural Classifications Anterior/Posterior PT-OP-K Range of Motion Start: 01/08/18 13:37 Freq: Status: Active Protocol: Document 09/08/18 10:47 [facility] (Rec: 09/08/18 13:18 [facility] [id number]) Cervical Spine Range of Motion Cervical Spine Active Degrees Flexion 63 Extension 56 Rotation Left 65 Rotation Right 76 Lateral Flexion Left 45 Lateral Flexion Right 46 PT-OP-L Special Tests Start: 05/21/18 07:27 Freq: Status: Active Protocol: Document 05/21/18 10:27 [facility] (Rec: 05/21/18 11:52 [facility] [id number]) Special Tests Cervical Spine Special Tests Traction Test Results gives relief, feels good Vertebral Artery Test Results neg bilat spurlings L&R Test Results neg bilat compression Test Results neg Neural Special Tests- Upper Body radial n Test Results pos on R with end range, sx = pulling ulnar n Test Results neg bilat median n Test Results pos at 90 degrees abd on L, pos at 30 degrees abd on R passive abd Test Results pos on R at 90 degrees PT-OP-M Strength Start: 05/21/18 07:27 Freq: Status: Active Protocol: Document 09/08/18 10:47 [facility] (Rec: 09/08/18 13:18 [facility] [id number]) Shoulder Strength Shoulder Manual Muscle Testing L Flexion 5 Normal Extension 5 Normal Abduction (C5) 5 Normal External Rotation 5 Normal Internal Rotation 5 Normal R Flexion 4+ Good+ Extension 4+ Good+ Abduction (C5) 4+ Good+ External Rotation 5 Normal Internal Rotation 5 Normal PT-OP-Q Treatments Start: 01/08/18 13:37 Freq: Status: Active Protocol: Document 09/08/18 10:47 [facility] (Rec: 09/08/18 13:18 [facility] [id number]) Therapeutic Exercises Prone Exercises plank Prone Exercise Name forearms and knees Reps/Minutes 15 sec hold x2 Comments progressed to short holds on feet Sidelying Exercises side plank Sidelying Exercise Name side plank on L; R scap stability Side bilateral Standing Exercises bodyblade Standing Exercise Name body blade-at side, elbow flex at 90, flex 60 deg, abd 45 deg Side right Reps/Minutes 30 sec ea Comments focus on scap position Manual Therapy Treatment Soft Tissue Mobilization 2 Body Location LS, UT along scap border Mobilization Type Rolling Intensity/Depth Moderate Body Position Prone 1 Body Location supraspinatus tendon Comments TFM PT-OP-R Modalities Start: 01/08/18 13:37 Freq: Status: Active Protocol: Document 08/26/18 13:18 [facility] (Rec: 08/26/18 13:34 [facility] [id number]) Hot Pack/Cold Pack Treatment Hot Pack Location cervical & R shoulder & thoracic Treatment Duration (minutes) 15 PT-OP-T Assessment and Plan Start: 01/08/18 13:37 Freq: Status: Active Protocol: Document 09/08/18 10:47 [facility] (Rec: 09/08/18 13:18 [facility] [id number]) Physical Therapy Assessment Goals strength Impairment strength Short Term Goal (STG) indep with HEP STG Duration - achieved progressing Director Of Event Marketing Goal (LTG) 5/5 UE strength to allow pt to do gardening & house activities without pain. LTG Duration 10/10/18-improved Two Impairment ROM Short Term Goal (STG) Pt will be able to open and close jaw without deviations STG Duration achieved Care Home Goal (LTG) WNL cervical ROM to allow pt to do ADLs without pain or difficulty and report no difficulty with driving LTG Duration achieved Assessment Summary Assessment Pt no longer notices limits to ROM and has improved overall with UE strength. Pt still does have some impaired stability of R shoulder which cont to require cueing, neuro re edu and manual treatment. Physical Therapy Plan Frequency and Duration Frequency of Treatment 1x/Week Duration of Treatment 6 weeks Plan of Care Start Date 09/08/18 Plan of Care End Date 10/20/18 Therapeutic Interventions Modalities Cold Pack/Ice Massage Electric Stimulation Hot Packs Ultrasound Next Visit Focus/Plan Next Note Type Treatment Note Next Visit Plan follow up with re: exercises & review plan for cont and adjust HEP as needed to advance strength
--- NOTE | 2018-09-08 13:18 | PT.OPPOC ---
Current Diagnoses Other specified disorders of temporomandibular joint (09/08/18) Provider Visit Care Team Role Provider Type ELSIE Martinez Primary Care Provider Non-Staff Specialty: Medical Address: [address] [place] [address], [id number] Email: Hugh Dallas MD Attending Provider Physician Specialty: Ear, Nose, Throat Address: [address] [place] [address], [id number] Email: Plan Of Care PT-OP-T Assessment and Plan Start: 01/08/18 13:37 Freq: Status: Active Protocol: Document 09/08/18 10:47 [facility] (Rec: 09/08/18 13:18 [facility] [id number]) Physical Therapy Assessment Goals strength Impairment strength Short Term Goal (STG) indep with HEP STG Duration - achieved progressing Group Home Goal (LTG) 5/5 UE strength to allow pt to do gardening & house activities without pain. LTG Duration 10/10/18-improved Two Impairment ROM Short Term Goal (STG) Pt will be able to open and close jaw without deviations STG Duration achieved Shooter'S Helper Goal (LTG) WNL cervical ROM to allow pt to do ADLs without pain or difficulty and report no difficulty with driving LTG Duration achieved Assessment Summary Assessment Pt no longer notices limits to ROM and has improved overall with UE strength. Pt still does have some impaired stability of R shoulder which cont to require cueing, neuro re edu and manual treatment. Physical Therapy Plan Frequency and Duration Frequency of Treatment 1x/Week Duration of Treatment 6 weeks Plan of Care Start Date 09/08/18 Plan of Care End Date 10/20/18 Therapeutic Interventions Modalities Cold Pack/Ice Massage Electric Stimulation Hot Packs Ultrasound Next Visit Focus/Plan Next Note Type Treatment Note Next Visit Plan follow up with re: exercises & review plan for cont and adjust HEP as needed to advance strength Plan of Care Dates Plan of Care Start Date 09/08/18 Plan of Care End Date 10/20/18 Please Sign and Return: I have reviewed this Plan of Care and certify that the skilled therapy services above are required to meet the patient?s needs. Physician Signature Date Printed Name and Credentials Clinical Instructor Signature Printed Name and Credentials
--- NOTE | 2018-09-30 09:37 | PT.OTN ---
Current Diagnoses Other specified disorders of temporomandibular joint (09/30/18) Physical Therapy Treatment Note PT-OP-A Visit Information Start: 01/08/18 13:37 Freq: Status: Active Protocol: Document 10/02/18 09:27 [facility] (Rec: 10/02/18 09:37 [facility] [id number]) Out-Patient Physical Therapy Visit Information Visit Information Visit Type Discharge Summary Visit Start Time 14:30 Visit Stop Time 15:25 Total Visit Minutes 55 Visit Number 2/10 Number of SEPTIC TANK SERVICE TECHNICIAN Visits 0 PT-OP-B Current Condition Start: 01/08/18 13:37 Freq: Status: Active Protocol: Document 05/21/18 10:27 [facility] (Rec: 05/21/18 11:52 [facility] [id number]) Current Condition History of Current Condition Onset Date decades History of Current Condition Jaw is doing well and no more popping. Pt reports neck pain has lasted a couple decades. Reports she had a couple falls . One in 1999 where she hit her R side and R shoulder, back & neck [place] Reports a couple other falls that gave her a problem. Reports now neck pain into R> L shoulder. Dizziness has been better recently been d/t dec in BP meds. Has had some FARLEY but got sick a couple weeks ago and d/t not getting better she started antibotics. FARLEY was during feeling sick. Last one was 2 days ago. She thinks it may have to do with being still sick. Prior Treatments and Tests PT for TMD; chiropractor did x -rays last year- stopped seeing chiro during PT- gives temporary relief for about 1.5 days then tightens back up. When went in 3x/week and was feeling better when consistently going in. Treatment Goals Patient/Caregiver Goals Don't want pain to get worse, wants to have freedom to move head, doesn't want it to prevent her from driving, gardening & day to day activities. PT-OP-C Subjective Start: 01/08/18 13:37 Freq: Status: Active Protocol: Document 10/02/18 09:27 [facility] (Rec: 10/02/18 09:37 [facility] [id number]) OP-PT Subjective Patient Comments Patient Comments Pt reports feeling ready for d /c. Feels good with exercises PT-OP-F Manual Assessment Start: 05/21/18 07:27 Freq: Status: Active Protocol: Document 05/21/18 10:27 [facility] (Rec: 05/21/18 11:52 [facility] [id number]) Manual Assessments Soft Tissue Assessment Soft Tissue Mobility Assessment tightness throughout the cervical region especially ant like scalenes & SCM; inc tightness of cervical parapsinals, UT, LS Joint Mobility Assessment Joint Mobility Assessment Dec thoracic rotation B; elevated 1st ribs B PT-OP-J Posture/Palpation/Skin Start: 01/08/18 13:37 Freq: Status: Active Protocol: Document 05/21/18 10:27 [facility] (Rec: 05/21/18 11:53 [facility] [id number]) Posture Evaluation [facility] Postural Classification System Shawn Postural Classifications Anterior/Posterior PT-OP-K Range of Motion Start: 01/08/18 13:37 Freq: Status: Active Protocol: Document 09/08/18 10:47 [facility] (Rec: 09/08/18 13:18 [facility] [id number]) Cervical Spine Range of Motion Cervical Spine Active Degrees Flexion 63 Extension 56 Rotation Left 65 Rotation Right 76 Lateral Flexion Left 45 Lateral Flexion Right 46 PT-OP-L Special Tests Start: 05/21/18 07:27 Freq: Status: Active Protocol: Document 05/21/18 10:27 [facility] (Rec: 05/21/18 11:52 [facility] [id number]) Special Tests Cervical Spine Special Tests Traction Test Results gives relief, feels good Vertebral Artery Test Results neg bilat spurlings L&R Test Results neg bilat compression Test Results neg Neural Special Tests- Upper Body radial n Test Results pos on R with end range, sx = pulling ulnar n Test Results neg bilat median n Test Results pos at 90 degrees abd on L, pos at 30 degrees abd on R passive abd Test Results pos on R at 90 degrees PT-OP-M Strength Start: 05/21/18 07:27 Freq: Status: Active Protocol: Document 09/08/18 10:47 [facility] (Rec: 09/08/18 13:18 [facility] [id number]) Shoulder Strength Shoulder Manual Muscle Testing L Flexion 5 Normal Extension 5 Normal Abduction (C5) 5 Normal External Rotation 5 Normal Internal Rotation 5 Normal R Flexion 4+ Good+ Extension 4+ Good+ Abduction (C5) 4+ Good+ External Rotation 5 Normal Internal Rotation 5 Normal PT-OP-Q Treatments Start: 01/08/18 13:37 Freq: Status: Active Protocol: Document 10/02/18 09:27 [facility] (Rec: 10/02/18 09:37 [facility] [id number]) Manual Therapy Treatment Soft Tissue Mobilization 4 Body Location pec R Mobilization Type Rolling 3 Body Location deltoid Mobilization Type Rolling 2 Body Location LS, UT along scap border Mobilization Type Rolling Intensity/Depth Moderate Body Position Prone PT-OP-R Modalities Start: 01/08/18 13:37 Freq: Status: Active Protocol: Document 10/02/18 09:27 [facility] (Rec: 10/02/18 09:37 [facility] [id number]) Hot Pack/Cold Pack Treatment Hot Pack Location cervical & R shoulder & thoracic Treatment Duration (minutes) 15 PT-OP-T Assessment and Plan Start: 01/08/18 13:37 Freq: Status: Active Protocol: Document 10/02/18 09:27 [facility] (Rec: 10/02/18 09:37 [facility] [id number]) Physical Therapy Assessment Goals strength Impairment strength Short Term Goal (STG) indep with HEP STG Duration - achieved progressing Senior Living Goal (LTG) 5/5 UE strength to allow pt to do gardening & house activities without pain. LTG Duration 10/10/1840-ucozjwkl-mxuic pain Two Impairment ROM Short Term Goal (STG) Pt will be able to open and close jaw without deviations STG Duration achieved Director Mortgage Goal (LTG) WNL cervical ROM to allow pt to do ADLs without pain or difficulty and report no difficulty with driving LTG Duration achieved Assessment Summary Assessment Pt is indep with HEP and is having min pain in R shoulder occasionally. She is no longer limited with activity and feels good with her home exercises. Physical Therapy Plan Discharge Physical Therapy Discharge Reasons Goals Met
--- NOTE | 2018-10-02 09:38 | PT.OPDS ---
Current Diagnoses Other specified disorders of temporomandibular joint (09/30/18) Provider Visit Care Team Role Provider Type ELSIE Martinez Primary Care Provider Non-Staff Specialty: Medical Address: [address] [place] [address], [id number] Email: Hugh Dallas MD Attending Provider Physician Specialty: Ear, Nose, Throat Address: [address] [place] [address], [id number] Email: Visit Number Visit Number 08/31 Discharge Summary PT-OP-B Current Condition Start: 01/08/18 13:37 Freq: Status: Active Protocol: Document 05/21/18 10:27 [facility] (Rec: 05/21/18 11:52 [facility] [id number]) Current Condition History of Current Condition Onset Date decades History of Current Condition Jaw is doing well and no more popping. Pt reports neck pain has lasted a couple decades. Reports she had a couple falls . One in 1999 where she hit her R side and R shoulder, back & neck [place]. Reports a couple other falls that gave her a problem. Reports now neck pain into R> L shoulder. Dizziness has been better recently been d/t dec in BP meds. Has had some FARLEY but got sick a couple weeks ago and d/t not getting better she started antibotics. FARLEY was during feeling sick. Last one was 2 days ago. She thinks it may have to do with being still sick. Prior Treatments and Tests PT for TMD; chiropractor did x -rays last year- stopped seeing chiro during PT- gives temporary relief for about 1.5 days then tightens back up. When went in 3x/week and was feeling better when consistently going in. Treatment Goals Patient/Caregiver Goals Don't want pain to get worse, wants to have freedom to move head, doesn't want it to prevent her from driving, gardening & day to day activities. PT-OP-C Subjective Start: 01/08/18 13:37 Freq: Status: Active Protocol: Document 10/02/18 09:27 [facility] (Rec: 10/02/18 09:37 [facility] [id number]) OP-PT Subjective Patient Comments Patient Comments Pt reports feeling ready for d /c. Feels good with exercises PT-OP-F Manual Assessment Start: 05/21/18 07:27 Freq: Status: Active Protocol: Document 05/21/18 10:27 [facility] (Rec: 05/21/18 11:52 [facility] [id number]) Manual Assessments Soft Tissue Assessment Soft Tissue Mobility Assessment tightness throughout the cervical region especially ant like scalenes & SCM; inc tightness of cervical parapsinals, UT, LS Joint Mobility Assessment Joint Mobility Assessment Dec thoracic rotation B; elevated 1st ribs B PT-OP-J Posture/Palpation/Skin Start: 01/08/18 13:37 Freq: Status: Active Protocol: Document 05/21/18 10:27 [facility] (Rec: 05/21/18 11:53 [facility] [id number]) Posture Evaluation [facility] Postural Classification System Shawn Postural Classifications Anterior/Posterior PT-OP-K Range of Motion Start: 01/08/18 13:37 Freq: Status: Active Protocol: Document 09/08/18 10:47 [facility] (Rec: 09/08/18 13:18 [facility] [id number]) Cervical Spine Range of Motion Cervical Spine Active Degrees Flexion 63 Extension 56 Rotation Left 65 Rotation Right 76 Lateral Flexion Left 45 Lateral Flexion Right 46 PT-OP-L Special Tests Start: 05/21/18 07:27 Freq: Status: Active Protocol: Document 05/21/18 10:27 [facility] (Rec: 05/21/18 11:52 [facility] [id number]) Special Tests Cervical Spine Special Tests Traction Test Results gives relief, feels good Vertebral Artery Test Results neg bilat spurlings L&R Test Results neg bilat compression Test Results neg Neural Special Tests- Upper Body radial n Test Results pos on R with end range, sx = pulling ulnar n Test Results neg bilat median n Test Results pos at 90 degrees abd on L, pos at 30 degrees abd on R passive abd Test Results pos on R at 90 degrees PT-OP-M Strength Start: 05/21/18 07:27 Freq: Status: Active Protocol: Document 09/08/18 10:47 [facility] (Rec: 09/08/18 13:18 [facility] [id number]) Shoulder Strength Shoulder Manual Muscle Testing L Flexion 5 Normal Extension 5 Normal Abduction (C5) 5 Normal External Rotation 5 Normal Internal Rotation 5 Normal R Flexion 4+ Good+ Extension 4+ Good+ Abduction (C5) 4+ Good+ External Rotation 5 Normal Internal Rotation 5 Normal PT-OP-T Assessment and Plan Start: 01/08/18 13:37 Freq: Status: Active Protocol: Document 10/02/18 09:27 [facility] (Rec: 10/02/18 09:37 [facility] [id number]) Physical Therapy Assessment Goals strength Impairment strength Short Term Goal (STG) indep with HEP STG Duration - achieved progressing Care Home Goal (LTG) 5/5 UE strength to allow pt to do gardening & house activities without pain. LTG Duration 10/10/1864-zgfsrfuw-cqvel pain Two Impairment ROM Short Term Goal (STG) Pt will be able to open and close jaw without deviations STG Duration achieved Side Boss Goal (LTG) WNL cervical ROM to allow pt to do ADLs without pain or difficulty and report no difficulty with driving LTG Duration achieved Assessment Summary Assessment Pt is indep with HEP and is having min pain in R shoulder occasionally. She is no longer limited with activity and feels good with her home exercises. Physical Therapy Plan Discharge Physical Therapy Discharge Reasons Goals Met
== END 2018-09-30 15:30 ==
LOC: PHYS 14:30
PROVIDERS: PCP Nurse Practitioner Family; Visit Provider Otolaryngology
DX: M26.69 Other specified disorders of temporomandibular joint (principal)
CPT/HCPCS: 97010; 97014; 97110; 97112; 97140; 97161; 97164; 97530; G0283

== ENCOUNTER → 2018-10-13 10:54 | Outpatient (CLI) | payer MEDICARE, BC, SELFPAY ==
[2018-10-13 11:55] LABS: Monotest Negative (Negative)
== END ==
PROVIDERS: PCP Family Medicine; Visit Provider Family Medicine
DX: J02.9 Acute pharyngitis, unspecified (principal)
CPT/HCPCS: 36415; 86318; 87070

== ENCOUNTER 2018-12-23 14:56 | Emergency (ER) | payer MEDICARE, BC, SELFPAY ==
[2018-12-23 15:04] VITALS: BP 147/76; PULSE 67; RESP 16; TEMP 36.3; O2SAT 100
--- NOTE | 2018-12-23 15:59 | PC.NURSE ---
s/p parathyroid biopsy done yesterday at [facility], by dr jang. today increase in throat irritation, hurts to swallow, able to take pain pills with yogurt. denies fever,vomiting.
--- NOTE | 2018-12-23 16:06 | ED_ITS ---
HPI - Skin/Abscess/Foreign Bdy <Rachel Huddleston, LICENSE EXAMINER-BC - Last Filed: 12/23/18 21:41> General Chief complaint: Skin/Abscess/Foreign Body Stated complaint: SOB Time Seen by Provider: 12/23/18 15:30 Source: patient and family Mode of arrival: ambulatory Limitations: no limitations History of Present Illness HPI narrative: The patient is a 68-year-old female nonsmoker with history of depression who presents with a chief complaint of surgical site concern. She states she had a parathyroid biopsy done yesterday at [facility] by doctor Mccarthy. She states that today she noted some swelling around her incisions eye, redness from her and site as well as the swallowing and a harder time breathing today. She spoke with her surgeon, who suggested she come to the emergency department. The patient states she thinks she is going to get some steroids. She is concerned about this, she states she has a bad reaction to steroids about 10 years ago. The patient does endorse some difficulty swallowing, difficulty breathing related to throat pain. She denies any fevers nausea vomiting or diarrhea. She has not taken anything since the surgery. Related Data Home Medications Medication Instructions Recorded Confirmed alendronate 70 mg tablet 70 mg PO QWEEK 05/13/18 10/13/18 ascorbic acid (vitamin C) 500 mg 500 mg PO DAILY 05/27/18 10/13/18 tablet aspirin 81 mg tablet,delayed 162 mg PO DAILY tab 05/27/18 10/13/18 release calcium carbonate 500 mg calcium See Rx Instructions PO ONCE tab 05/27/18 10/13/18 (1,250 mg) tablet cholecalciferol (vitamin D3) 2,000 2,000 unit PO DAILY 05/27/18 10/13/18 unit capsule coenzyme Q10 300 mg capsule 300 mg PO DAILY 05/27/18 10/13/18 loratadine 10 mg tablet 10 mg PO DAILY 05/27/18 10/13/18 multivitamin tablet 1 tab PO DAILY 05/27/18 10/13/18 Previous Rx's Medication Instructions Recorded varicella-zoster glycoE [id number] 50 mcg IM ONCE #1 each 05/27/18 adj(PF) 50 mcg/0.5 mL IM susp, kit acyclovir 400 mg tablet 400 mg PO BID #180 tab 11/03/18 citalopram 10 mg tablet 5 mg PO DAILY #45 tab 11/03/18 lisinopril 10 mg tablet 10 mg PO DAILY #90 tab 11/03/18 verapamil ER (SR) 180 mg 180 mg PO DAILY #90 tab 11/03/18 tablet,extended release methylprednisolone [Medrol (Ramón)] See Rx Instructions .ROUTE 12/23/18 .COMPLEX #21 each Allergies Allergy/AdvReac Type Severity Reaction Status Date / Time lactase [From Dairy Aid] Allergy Mild sinus Verified 10/13/18 10:05 congestion cefaclor [From Ceclor] AdvReac Mild my head Verified 10/13/18 10:05 was pounding soy sauce Allergy Intermediate swelling Uncoded 10/13/18 10:05 in sinuses and throat Review of Systems <BUSTER Cox - Last Filed: 12/23/18 21:41> Review of Systems GENERAL: Denies chills, fatigue, malaise, fever, sweats. HEENT: See HPI RESPIRATORY: Denies dyspnea, cough, wheezing, hemoptysis, sputum. CARDIOVASCULAR: Denies chest pain, palpitations, orthopnea, edema, GASTROINTESTINAL: Denies nausea, vomiting, abdominal pain, diarrhea, constipation, melena. : Denies dysuria, frequency, incontinence, hematuria, urinary retention. MUSCULOSKELETAL: denies weakness, joint pain, or bony pain SKIN: See HPI NEUROLOGIC: Denies weakness, headache, numbness, change in speech, confusion, seizures, incoordination. PSYCHIATRIC: No concerning psychosocial issues. 12 point review of systems is negative except for those stated above PFSH <BUSTER Cox - Last Filed: 12/23/18 21:41> Medical History HTN (hypertension) (Chronic) Depression (Chronic 1979) Osteoporosis (Chronic) Hyperparathyroidism (Chronic) Cyst of pituitary gland (Chronic) Herpes (Chronic ~1974) Anxiety (Chronic 1979) Cardiac arrhythmia (Chronic) Chronic low back pain (Chronic) Dizziness (Chronic) Hayfever (Chronic) IBS (irritable bowel syndrome) (Chronic) Jaw pain (Chronic) Neck pain (Chronic) PTSD (post-traumatic stress disorder) (Chronic 1979) Shoulder pain (Chronic) Anemia (Resolved) Recurrent sinusitis (Resolved) TIA (transient ischemic attack) (Resolved ~2012) Surgical History History of breast biopsy (Resolved 1982) History of breast surgery (Resolved 2007) Family History Father Starvation Alzheimer's disease Prostate cancer Grandfather Heart attack Heart disease Grandmother Stroke Cancer Mother Hypothyroidism Hypertension Stroke Grandfather Heart attack Grandmother Stroke Sister No problems noted. Brother Prostate cancer Hypertension Brother Hypertension Stroke Sister Hypertension Social History number of children: 3 household members: none lives independently: Yes caregiver/support person: No Smoking Status: Never smoker second hand exposure: No alcohol intake: never substance use type: does not use Family History Father Starvation Alzheimer's disease Prostate cancer Grandfather Heart attack Heart disease Grandmother Stroke Cancer Mother Hypothyroidism Hypertension Stroke Grandfather Heart attack Grandmother Stroke Sister No problems noted. Brother Prostate cancer Hypertension Brother Hypertension Stroke Sister Hypertension Social History number of children: 3 household members: none lives independently: Yes caregiver/support person: No Smoking Status: Never smoker second hand exposure: No alcohol intake: never substance use type: does not use Exam <BUSTER Cox - Last Filed: 12/23/18 21:41> Narrative Exam Narrative: GENERAL: Thin female in no acute distress HEAD: Atraumatic. Normocephalic. No temporal or scalp tenderness. EYES: Pupils equal round and reactive. Extraocular motions intact. No scleral icterus. No injection or drainage. ENT: Nose without bleeding, purulent drainage or septal hematoma. Throat without erythema, tonsillar hypertrophy or exudate. Uvula midline. Airway patent. NECK: Trachea midline. No JVD or lymphadenopathy. Supple, nontender, no meninge al signs. CARDIOVASCULAR: Regular rate and rhythm without murmurs, gallops, or rubs. RESPIRATORY: Clear to auscultation. Breath sounds equal bilaterally. No wheezes, rales, or rhonchi. No stridor. No accessory muscle use. No retractions. No cough. GASTROINTESTINAL: Abdomen soft, non-tender, nondistended. No hepato- splenomegaly, or palpable masses. No guarding. EXTREMITIES: No clubbing, cyanosis, or edema. No joint tenderness, effusion, or edema noted. BACK: Nontender without deformity or crepitance. No flank tenderness. NEURO: AOx3. SKIN: Surgical wound dressing noted on neck, with slight surrounding ecchymosis. No obvious swelling to the area. Initial Vital Signs Initial Vital Signs: Vital Signs Temperature 97.4 F L 12/23/18 15:04 Pulse Rate 67 12/23/18 15:04 Respiratory Rate 16 12/23/18 15:04 Blood Pressure 147/76 H 12/23/18 15:04 Pulse Oximetry 100 12/23/18 15:04 <Rachel Tanner DO - Last Filed: 12/25/18 07:55> Initial Vital Signs Initial Vital Signs: Vital Signs Temperature 97.4 F L 12/23/18 15:04 Pulse Rate 67 12/23/18 15:04 Respiratory Rate 16 12/23/18 15:04 Blood Pressure 147/76 H 12/23/18 15:04 Pulse Oximetry 100 12/23/18 15:04 Course <CATRACHITA Cox-BC - Last Filed: 12/23/18 21:41> Orders Ordered: Discontinued Medications Dexamethasone (Decadron) 10 mg IV NOW ONE Stop: 12/23/18 18:38 Last Admin: 12/23/18 19:28 Dose: 10 mg Sodium Chloride (Normal Saline 0.9%) 500 mls @ 1,000 mls/hr IV BOLUS ONE Stop: 12/23/18 19:06 Last Infusion: 12/23/18 19:58 Dose: 0 mls/hr Admin: 12/23/18 19:28 Dose: 1,000 mls/hr Vital Signs - 8 hr 12/23/18 15:04 12/23/18 16:56 12/23/18 17:51 Temperature 97.4 F L 97.4 F L Pulse Rate 67 61 65 Respiratory Rate 16 16 16 Blood Pressure 147/76 H Blood Pressure [Right Arm] 106/59 L 105/61 Pulse Oximetry 100 99 98 12/23/18 18:00 12/23/18 19:30 12/23/18 20:00 Temperature 98.7 F Pulse Rate 69 77 72 Respiratory Rate 17 18 Blood Pressure Blood Pressure [Right Arm] 105/73 111/75 116/62 Pulse Oximetry 98 99 100 <Rachel Tanner DO - Last Filed: 12/25/18 07:55> Orders Ordered: Discontinued Medications Dexamethasone (Decadron) 10 mg IV NOW ONE Stop: 12/23/18 18:38 Last Admin: 12/23/18 19:28 Dose: 10 mg Sodium Chloride (Normal Saline 0.9%) 500 mls @ 1,000 mls/hr IV BOLUS ONE Stop: 12/23/18 19:06 Last Infusion: 12/23/18 19:58 Dose: 0 mls/hr Admin: 12/23/18 19:28 Dose: 1,000 mls/hr Vital Signs - 8 hr 12/23/18 15:04 12/23/18 16:56 12/23/18 17:51 Temperature 97.4 F L 97.4 F L Pulse Rate 67 61 65 Respiratory Rate 16 16 16 Blood Pressure 147/76 H Blood Pressure [Right Arm] 106/59 L 105/61 Pulse Oximetry 100 99 98 12/23/18 18:00 12/23/18 19:30 12/23/18 20:00 Temperature 98.7 F Pulse Rate 69 77 72 Respiratory Rate 17 18 Blood Pressure Blood Pressure [Right Arm] 105/73 111/75 116/62 Pulse Oximetry 98 99 100 MDM - Skin/Abscess/Foreign Bdy <CATRACHITA Cox-BC - Last Filed: 12/23/18 21:41> Lab Data Result diagrams: 12/23/18 15:50 12/23/18 16:28 Lab Results 12/23/18 12/23/18 Range/Units 15:50 16:28 WBC 7.1 (4.5-11.0) X10^3/uL RBC 3.73 L (4.0-5.2) X10^6/uL Hgb 12.0 (12.0-16.0) g/dL Hct 35.5 L (36-46) % MCV 95.1 (80-100) fL MCH 32.0 (26-34) PG MCHC 33.7 (30-36) % RDW 13.3 (11.6-14.8) % Plt Count 183 (150-400) X10^3/uL Neut % (Auto) 61.3 (50-75) % Lymph % (Auto) 26.2 (25-40) % [place] % (Auto) 10.9 (3-14) % Eos % (Auto) 0.6 L (2-4) % Baso % (Auto) 1.0 (0-2) % Neut # (Auto) 4400 (9648-1601) /uL Lymph # (Auto) 1900 (2985-3458) /uL [place] # (Auto) 800 (0-900) /uL Eos # (Auto) 0 (0-450) /uL Baso # (Auto) 100 (0-100) /uL Sodium 134 L (137-145) mmol/L Potassium 4.4 (3.4-5.1) mmol/L Chloride 97 L (98-107) mmol/L Carbon Dioxide 32 (22-32) mmol/L BUN 25 H (7-17) mg/dL Creatinine 0.80 (0.52-1.04) mg/dL Estimated GFR > 60.0 (>60) mL/min BUN/Creatinine Ratio 31.3 H (6-22) Glucose 91 (80-110) mg/dL Calcium 9.2 (8.4-10.2) mg/dL Total Bilirubin 0.3 (0.2-1.3) mg/dL AST 33 (14-36) IU/L ALT 41 (9-52) IU/L Alkaline Phosphatase 78 (38-126) U/L Total Protein 6.4 (6.3-8.2) g/dL Albumin 3.8 (3.5-5.0) g/dL Globulin 2.6 (1.7-4.1) g/dL Albumin/Globulin Ratio 1.5 (1.0-2.8) MDM Narrative Medical decision making narrative: The patient is a 68-year-old female who presents after a thyroid biopsy with concerns for postoperative swelling. Given the concern about decreased ability to swallow or breathe, I did try to get a CT with contrast to evaluate for any possible abscess or hematoma. The patient repeatedly declined any imaging today. I did speak with her surgeon, Dr. Mccarthy from [facility] who recommended steroids. The patient was hemodynamically stable throughout her stay in the emergency department, without stridor and breathing easily. She does not have an elevated white blood cell count at this point time. I did discuss at length coming back to the emergency department for any acute concerns such as respiratory distress. Encouraged follow-up with her surgeon. I did give the patient a Medrol Dosepak. No questions or concerns upon discharge <Rachel Tanner, - Last Filed: 12/25/18 07:55> Lab Data Lab Results 12/23/18 12/23/18 Range/Units 15:50 16:28 WBC 7.1 (4.5-11.0) X10^3/uL RBC 3.73 L (4.0-5.2) X10^6/uL Hgb 12.0 (12.0-16.0) g/dL Hct 35.5 L (36-46) % MCV 95.1 (80-100) fL MCH 32.0 (26-34) PG MCHC 33.7 (30-36) % RDW 13.3 (11.6-14.8) % Plt Count 183 (150-400) X10^3/uL Neut % (Auto) 61.3 (50-75) % Lymph % (Auto) 26.2 (25-40) % [place] % (Auto) 10.9 (3-14) % Eos % (Auto) 0.6 L (2-4) % Baso % (Auto) 1.0 (0-2) % Neut # (Auto) 4400 (5499-8481) /uL Lymph # (Auto) 1900 (1285-5716) /uL [place] # (Auto) 800 (0-900) /uL Eos # (Auto) 0 (0-450) /uL Baso # (Auto) 100 (0-100) /uL Sodium 134 L (137-145) mmol/L Potassium 4.4 (3.4-5.1) mmol/L Chloride 97 L (98-107) mmol/L Carbon Dioxide 32 (22-32) mmol/L BUN 25 H (7-17) mg/dL Creatinine 0.80 (0.52-1.04) mg/dL Estimated GFR > 60.0 (>60) mL/min BUN/Creatinine Ratio 31.3 H (6-22) Glucose 91 (80-110) mg/dL Calcium 9.2 (8.4-10.2) mg/dL Total Bilirubin 0.3 (0.2-1.3) mg/dL AST 33 (14-36) IU/L ALT 41 (9-52) IU/L Alkaline Phosphatase 78 (38-126) U/L Total Protein 6.4 (6.3-8.2) g/dL Albumin 3.8 (3.5-5.0) g/dL Globulin 2.6 (1.7-4.1) g/dL Albumin/Globulin Ratio 1.5 (1.0-2.8) Discharge Plan Departure Patient Disposition: Home Clinical Impression: Encounter for postoperative wound check Discharge Date/Time: 12/23/18 20:15 Interventions: ED Discharge Assessment Last Done: 12/23/18 20:18 Instructions: How to Care for a Surgical Wound Activity Restrictions/Additional Instructions: Please follow up with her surgeon as we discussed. I have given you a steroid dose pack. Please come back to the emergency department for any acute concerns such as chest pain, shortness of breath, difficulty breathing etc. Please follow up with primary care provider as well. Prescriptions: New methylprednisolone [Medrol (Ramón)] 4 mg tablets,dose pack See Rx Instructions .ROUTE .COMPLEX Qty: 21 RF: 0 No Action multivitamin tablet 1 tab PO DAILY RF: 0 aspirin [Adult Low Dose Aspirin] 81 mg tablet,delayed release (DR/EC) 162 mg PO DAILY RF: 0 calcium carbonate [Calcium 500] 500 mg calcium (1,250 mg) tablet See Patient Comments PO ONCE RF: 0 ascorbic acid (vitamin C) 500 mg tablet 500 mg PO DAILY RF: 0 loratadine [Claritin] 10 mg tablet 10 mg PO DAILY RF: 0 coenzyme Q10 [Co Q-10] 300 mg capsule 300 mg PO DAILY RF: 0 cholecalciferol (vitamin D3) 2,000 unit capsule 2,000 unit PO DAILY RF: 0 varicella-zoster [id number]-AS01B (PF) [Shingrix (PF)] 50 mcg/0.5 mL suspension for reconstitution 50 mcg IM ONCE Qty: 1 RF: 1 alendronate 70 mg tablet 70 mg PO QWEEK RF: 0 verapamil 180 mg tablet extended release 180 mg PO DAILY Qty: 90 RF: 3 lisinopril 10 mg tablet 10 mg PO DAILY Qty: 90 RF: 3 acyclovir 400 mg tablet 400 mg PO BID Qty: 180 RF: 3 citalopram 10 mg tablet 5 mg PO DAILY Qty: 45 RF: 3 Referrals: Bere Gannon MD [Primary Care Provider] - <Rachel Tanner DO - Last Filed: 12/25/18 07:55> Cosign ED Attending Cosignature Attestation: I was immediately available in the department for consultation. This documentation has been reviewed and I agree with assessment and plan. Supervised by Rachel Tanner DO
[2018-12-23 16:09] LABS: Add Manual Diff / Slide Review NO; Basophils Absolute Auto 100 /uL (0-100); Eosinophils Absolute Auto 0 /uL (0-450); Eosinophils Percent Auto 0.6 % (2-4); Hematocrit 35.5 % (36-46); Lymphocytes Absolute Auto 1900 /uL (1100-4500); Lymphocytes Percent Auto 26.2 % (25-40); Mean Corpuscular HGB Conc 33.7 % (30-36); Mean Corpuscular Volume 95.1 fL (80-100); Monocytes Absolute Auto 800 /uL (0-900); Monocytes Percent Auto 10.9 % (3-14); Neutrophils Absolute Auto 4400 /uL (1500-7000); Neutrophils Percent Auto 61.3 % (50-75); Platelet Count 183 X10^3/uL (150-400); Red Blood Cell Count 3.73 X10^6/uL (4.0-5.2); Red Cell Distribution Width 13.3 % (11.6-14.8); White Blood Cell Count 7.1 X10^3/uL (4.5-11.0)
[2018-12-23 16:50] LABS: Alanine Aminotransferase 41 IU/L (9-52); Albumin 3.8 g/dL (3.5-5.0); Albumin Globulin Ratio 1.5 (1.0-2.8); Alkaline Phosphatase 78 U/L (38-126); Aspartate Aminotransferase 33 IU/L (14-36); BUN Creatinine Ratio 31.3 (6-22); Bilirubin Total 0.3 mg/dL (0.2-1.3); Blood Urea Nitrogen 25 mg/dL (7-17); Calcium 9.2 mg/dL (8.4-10.2); Carbon Dioxide 32 mmol/L (22-32); Chloride 97 mmol/L (98-107); Estimated Glomerular Filt Rate > 60.0 mL/min (>60); Globulin 2.6 g/dL (1.7-4.1); Glucose 91 mg/dL (80-110); HEMOLYSIS < 15 (0-50); Potassium 4.4 mmol/L (3.4-5.1); Sodium 134 mmol/L (137-145); Total Protein 6.4 g/dL (6.3-8.2)
[2018-12-23 16:56] VITALS: BP 106/59; PULSE 61; RESP 16; TEMP 36.3; O2SAT 99
[2018-12-23 17:51] VITALS: BP 105/61; PULSE 65; RESP 16; O2SAT 98
[2018-12-23 18:00] VITALS: BP 105/73; PULSE 69; O2SAT 98
[2018-12-23] MEDS: DEXAMETHASONE 10 MG/ML VIAL IV (19:28)
[2018-12-23] MEDS: SODIUM CHLORIDE 0.9% 500 ML 1000 ML IV (19:28)
[2018-12-23 19:30] VITALS: BP 111/75; PULSE 77; RESP 17; O2SAT 99
[2018-12-23 20:00] VITALS: BP 116/62; PULSE 72; RESP 18; TEMP 37.1; O2SAT 100
== END 2018-12-23 20:15 | disposition home or self-care (01) ==
PROVIDERS: Emergency Provider Nurse Practitioner Family; PCP Family Medicine
DX: T81.89XA Other complications of procedures, not elsewhere classified, initial encounter (principal); Z48.89 Encounter for other specified surgical aftercare
CPT/HCPCS: 36415; 80053; 85025; 96374; 99283; 99284; J1100

== ENCOUNTER → 2019-02-20 15:44 | Outpatient (CLI) | payer MEDICARE, BC, SELFPAY ==
[2019-02-20 16:47] LABS: Vitamin D 25 Hydroxy (D3) 46.8 ng/mL (30.0-100.0)
== END ==
PROVIDERS: PCP Family Medicine; Visit Provider Internal Medicine
DX: E21.0 Primary hyperparathyroidism (principal); E83.52 Hypercalcemia
CPT/HCPCS: 36415; 82306

== ENCOUNTER → 2019-09-14 15:16 | Outpatient (CLI) | payer MEDICARE, BC, SELFPAY ==
--- NOTE | 2019-09-14 | DI.MG.S_ITS ---
BILATERAL DIGITAL SCREENING MAMMOGRAM 3D/2D WITH CAD WITH AUGMENTATION: 09/14/2019 CLINICAL: Routine screening. Comparison is made to exams dated: 07/08/2018 mammogram - [facility], 06/07/2016 mammogram, and 10/22/2014 mammogram - [facility]. There are scattered fibroglandular elements in both breasts. Current study was also evaluated with a Computer Aided Detection (CAD) system. Bilateral breast implants are stable. No significant masses, calcifications, or other findings are seen in either breast. There has been no significant interval change. IMPRESSION: NEGATIVE There is no mammographic evidence of malignancy. A 1 year screening mammogram is recommended. This exam was interpreted at Station ID: [id number]. NOTE: For mammograms, a report in lay terms will be sent to the patient. Approximately 15% of breast malignancies will not be visualized mammographically. In the management of a palpable breast mass, a negative mammogram must not discourage biopsy of a clinically suspicious lesion. Electronically Signed By: Ambreen heaton/marcell:09/14/2019 22:21:22 letter sent: Normal Exam ACR BI-RADS Category 1: Negative 3341F
== END ==
PROVIDERS: PCP Family Medicine; Referring Provider Family Medicine; Visit Provider Family Medicine
DX: Z12.31 Encounter for screening mammogram for malignant neoplasm of breast (principal)
CPT/HCPCS: 77063; 77067

== ENCOUNTER → 2020-01-13 16:22 | Outpatient (CLI) | payer MEDICARE, OTHER, SELFPAY ==
[2020-01-13 17:40] LABS: BUN Creatinine Ratio 29.9 (6-22); Blood Urea Nitrogen 20 mg/dL (7-17); Calcium 9.9 mg/dL (8.4-10.2); Carbon Dioxide 31 mmol/L (22-32); Chloride 101 mmol/L (98-107); Estimated Glomerular Filt Rate > 60.0 mL/min (>60); Glucose 94 mg/dL (80-110); HEMOLYSIS < 15 (0-50); Potassium 5.1 mmol/L (3.4-5.1); Sodium 136 mmol/L (137-145)
[2020-01-13 19:26] LABS: Creatinine Urine Random 25.4 mg/dL
[2020-01-13 19:33] LABS: Microalbumi Creatinin Ratio Ur 23.6 ug/mg CR (<30); Microalbumin Urine Random < 0.6 mg/dL (0-1.6)
[2020-01-14 14:30] LABS: Magnesium 2.6 mg/dL (1.6-2.3)
== END ==
PROVIDERS: PCP Family Medicine; Referring Provider Family Medicine; Visit Provider Family Medicine
DX: I10 Essential (primary) hypertension (principal); R25.2 Cramp and spasm
CPT/HCPCS: 36415; 80048; 82043; 82570; 83735

== ENCOUNTER → 2020-03-25 13:52 | Outpatient (CLI) | payer MEDICARE, OTHER, SELFPAY ==
[2020-03-25 15:05] LABS: Alanine Aminotransferase 27 IU/L (<35); Albumin 4.2 g/dL (3.5-5.0); Albumin Globulin Ratio 1.8 (1.0-2.8); Alkaline Phosphatase 60 U/L (38-126); Aspartate Aminotransferase 34 IU/L (14-36); BUN Creatinine Ratio 24.7 (6-22); Bilirubin Total 0.3 mg/dL (0.2-1.3); Blood Urea Nitrogen 19 mg/dL (7-17); Calcium 9.2 mg/dL (8.4-10.2); Carbon Dioxide 33 mmol/L (22-32); Chloride 96 mmol/L (98-107); Estimated Glomerular Filt Rate > 60.0 mL/min (>60); Globulin 2.3 g/dL (1.7-4.1); Glucose 112 mg/dL (80-110); HEMOLYSIS < 15 (0-50); Potassium 4.4 mmol/L (3.4-5.1); Sodium 133 mmol/L (137-145); Total Protein 6.5 g/dL (6.3-8.2)
== END ==
PROVIDERS: PCP Family Medicine; Referring Provider Internal Medicine; Visit Provider Internal Medicine
DX: E21.0 Primary hyperparathyroidism (principal)
CPT/HCPCS: 36415; 80053

== ENCOUNTER → 2020-05-05 14:12 | Outpatient (CLI) | payer MEDICARE, OTHER, SELFPAY ==
[2020-05-05 16:05] LABS: BUN Creatinine Ratio 31.4 (6-22); Blood Urea Nitrogen 22 mg/dL (7-17); Calcium 9.4 mg/dL (8.4-10.2); Carbon Dioxide 34 mmol/L (22-32); Chloride 102 mmol/L (98-107); Estimated Glomerular Filt Rate > 60.0 mL/min (>60); Glucose 96 mg/dL (80-110); HEMOLYSIS < 15 (0-50); Sodium 137 mmol/L (137-145)
[2020-05-05 16:20] LABS: Potassium 5.5 mmol/L (3.4-5.1)
== END ==
PROVIDERS: PCP Family Medicine; Referring Provider Family Medicine; Visit Provider Family Medicine
DX: E87.1 Hypo-osmolality and hyponatremia (principal)
CPT/HCPCS: 36415; 80048

== ENCOUNTER → 2020-05-10 14:12 | Outpatient (CLI) | payer MEDICARE, OTHER, SELFPAY ==
[2020-05-10 15:55] LABS: BUN Creatinine Ratio 34.7 (6-22); Blood Urea Nitrogen 25 mg/dL (7-17); Calcium 9.4 mg/dL (8.4-10.2); Carbon Dioxide 33 mmol/L (22-32); Chloride 100 mmol/L (98-107); Estimated Glomerular Filt Rate > 60.0 mL/min (>60); Glucose 94 mg/dL (80-110); HEMOLYSIS < 15 (0-50); Potassium 5.3 mmol/L (3.4-5.1); Sodium 136 mmol/L (137-145)
== END ==
PROVIDERS: PCP Family Medicine; Referring Provider Family Medicine; Visit Provider Family Medicine
DX: E87.5 Hyperkalemia (principal)
CPT/HCPCS: 36415; 80048

== ENCOUNTER → 2020-08-25 13:42 | Outpatient (CLI) | payer MEDICARE, OTHER, SELFPAY ==
[2020-08-25 16:28] LABS: BUN Creatinine Ratio 28.6 (6-22); Blood Urea Nitrogen 26 mg/dL (7-17); Calcium 9.3 mg/dL (8.4-10.2); Carbon Dioxide 35 mmol/L (22-32); Chloride 100 mmol/L (98-107); Estimated Glomerular Filt Rate > 60.0 mL/min (>60); Glucose 84 mg/dL (80-110); HEMOLYSIS < 15 (0-50); Potassium 5.2 mmol/L (3.4-5.1); Sodium 136 mmol/L (137-145)
== END ==
PROVIDERS: PCP Family Medicine; Referring Provider Family Medicine; Visit Provider Family Medicine
DX: E87.8 Other disorders of electrolyte and fluid balance, not elsewhere classified (principal)
CPT/HCPCS: 36415; 80048

== ENCOUNTER → 2021-02-03 14:06 | Outpatient (CLI) | payer MEDICARE, OTHER, SELFPAY ==
--- NOTE | 2021-02-03 14:12 | DI.MG.S_ITS ---
BILATERAL DIGITAL SCREENING MAMMOGRAM 3D/2D WITH CAD WITH AUGMENTATION: 02/03/2021 CLINICAL: Routine screening. Comparison is made to exams dated: 09/14/2019 mammogram, 07/08/2018 mammogram - [facility], and 06/07/2016 mammogram - [facility]. There are scattered fibroglandular elements in both breasts. Current study was also evaluated with a Computer Aided Detection (CAD) system. Bilateral breast implants are stable. No significant masses, calcifications, or other findings are seen in either breast. There has been no significant interval change. IMPRESSION: NEGATIVE There is no mammographic evidence of malignancy. A 1 year screening mammogram is recommended. This exam was interpreted at Station ID: [id number]. NOTE: For mammograms, a report in lay terms will be sent to the patient. Approximately 15% of breast malignancies will not be visualized mammographically. In the management of a palpable breast mass, a negative mammogram must not discourage biopsy of a clinically suspicious lesion. Electronically Signed By: Levi su/marcell:02/03/2021 14:41:49 letter sent: Normal Exam ACR BI-RADS Category 1: Negative 3341F
== END ==
PROVIDERS: PCP Family Medicine; Referring Provider Family Medicine; Visit Provider Family Medicine
DX: Z12.31 Encounter for screening mammogram for malignant neoplasm of breast (principal)
CPT/HCPCS: 77063; 77067

== ENCOUNTER → 2021-03-31 08:27 | Outpatient (CLI) | payer MEDICARE, OTHER, SELFPAY ==
[2021-03-31 09:45] LABS: BUN Creatinine Ratio 28.6 (6-22); Blood Urea Nitrogen 18 mg/dL (7-17); Calcium 9.3 mg/dL (8.4-10.2); Carbon Dioxide 31 mmol/L (22-32); Chloride 104 mmol/L (98-107); Estimated Glomerular Filt Rate > 60.0 mL/min (>60); Glucose 83 mg/dL (80-110); Potassium 4.6 mmol/L (3.4-5.1); Sodium 139 mmol/L (137-145)
[2021-03-31 09:49] LABS: HEMOLYSIS 57 (0-50)
== END ==
PROVIDERS: PCP Family Medicine; Referring Provider Family Medicine; Visit Provider Family Medicine
DX: E87.1 Hypo-osmolality and hyponatremia (principal)
CPT/HCPCS: 36415; 80048

== ENCOUNTER → 2021-06-09 15:46 | Outpatient (CLI) | payer MEDICARE, OTHER, SELFPAY ==
[2021-06-09] MEDS: COVID-19 VACC #3, MRNA(MOD) 50 MCG/0.25 ML VIAL IM (16:08)
== END ==
PROVIDERS: PCP Family Medicine; Visit Provider Internal Medicine
DX: Z23 Encounter for immunization (principal)
CPT/HCPCS: 0013A; 91301

== ENCOUNTER → 2021-12-15 09:25 | Outpatient (CLI) | payer MEDICARE, OTHER, SELFPAY ==
[2021-12-15 10:29] LABS: BUN Creatinine Ratio 23.7 (6-22); Blood Urea Nitrogen 18 mg/dL (7-17); Carbon Dioxide 34 mmol/L (22-32); Chloride 103 mmol/L (98-107); Estimated Glomerular Filt Rate > 60 mL/min (>60); Glucose 87 mg/dL (80-110); HEMOLYSIS < 15 (0-50); Sodium 139 mmol/L (137-145)
[2021-12-15 12:16] LABS: Creatinine Urine Random 44.9 mg/dL
[2021-12-15 12:24] LABS: Microalbumin Urine Random < 0.6 mg/dL (0-1.6)
[2021-12-15 13:24] LABS: TSH w/ Reflex to FT4 2.27 uIU/mL (0.47-4.68)
== END ==
PROVIDERS: PCP Family Medicine; Referring Provider Family Medicine; Visit Provider Family Medicine
DX: I10 Essential (primary) hypertension (principal); E21.3 Hyperparathyroidism, unspecified; F33.41 Major depressive disorder, recurrent, in partial remission
CPT/HCPCS: 36415; 80048; 82043; 82570; 84443

== ENCOUNTER → 2022-08-16 09:33 | Outpatient (CLI) | payer MEDICARE, OTHER, SELFPAY ==
[2022-08-16 11:14] LABS: COVID19 -Nasal RAPID Negative (Negative)
== END ==
PROVIDERS: PCP Internal Medicine; Visit Provider Surgery
DX: Z01.812 Encounter for preprocedural laboratory examination (principal); Z20.822 Contact with and (suspected) exposure to COVID-19
CPT/HCPCS: 87635; C9803

== ENCOUNTER 2022-08-17 08:44 | Day surgery (SDC) | payer MEDICARE, OTHER, SELFPAY ==
--- NOTE | 2022-08-17 | PATH_ITS ---
[facility] Accession Number: [id number] No. of containers..01 Tissue . 01 Material submitted: . rectum - RECTAL POLYP . 01 Diagnosis: Rectum, Polyp, Biopsy: Hyperplastic polyp. MRV 08/23/2022 1205 Local . 01 Electronically signed: . Alaina Webster MD, Pathologist NPI- [id number] . 01 Gross description: . RECTAL POLYP: Received in formalin is 1 fragment(s) of fisher, soft tissue measuring 0.2 x 0.1 x 0.1 cm submitted entirely in 1 cassette(s) /CPE 08/18/2022 1013 Local . 01 Pathologist provided ICD-10: K62.1 . 01 CPT . 665636 Specimen Comment: A courtesy copy of this report has been sent to [facility] Pathology Performed at: 01 [facility] [address] [place] [address] [id number] MD Emeterio Hyde MD Phone: [phone]
[2022-08-17 09:18] VITALS: BP 150/98; PULSE 97; RESP 18; TEMP 36.3; O2SAT 99; BMI 21.2
[2022-08-17] MEDS: LACTATED RINGERS 1,000 ML 84 ML IV (09:29)
--- NOTE | 2022-08-17 10:15 | PM.HP.1 ---
History of Present Illness History of Present Illness Chief complaint: Colonoscopy Narrative: Ms. Holland presents for screening colonoscopy. Her last colonoscopy was she thinks could have been 7 or 8 years ago. She was due in 2019 but deferred because of COVID. Her last colonoscopy she had no polyps. Review a report from 04/10/2014. She said the colonoscopy before that was probably about 5 years prior and there were some polyps at that time her grandmother did have colon cancer. She is hemorrhoids and occasional bleeding with that but nothing concerning. No other bowel or colon symptoms. Never had abdominal surgery. She reports that the prep was difficult with cramping and shaking. 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 Allergic rhinitis Anemia Anxiety (1979) Cardiac arrhythmia Chronic low back pain Cyst of pituitary gland Depression (1979) Dizziness Essential hypertension Hayfever Herpes (~1974) Hyperparathyroidism IBS (irritable bowel syndrome) Jaw pain Mixed hyperlipidemia Neck pain Osteoporosis PTSD (post-traumatic stress disorder) (1979) Recurrent sinusitis Shoulder pain TIA (transient ischemic attack) (~2012) Surgical History History of breast biopsy (1982) History of breast surgery (2007) Family & Social History Family History Father Starvation Alzheimer's disease Prostate cancer Grandfather Heart attack Heart disease Grandmother Stroke Cancer Mother Hypothyroidism Hypertension Stroke Grandfather Heart attack Grandmother Stroke Sister No problems noted. Brother Prostate cancer Hypertension Brother Hypertension Stroke Sister Hypertension Social History: household members none lives independently Yes caregiver/support person No Tobacco & Substance use: Smoking Status Never smoker alcohol intake current alcohol intake frequency a few times a month Substance Use Type does not use Meds Home Medications and Allergies Home Medications Medication Instructions Recorded Confirmed Type ascorbic acid (vitamin C) 500 mg 500 mg PO DAILY 05/27/18 08/17/22 History tablet cholecalciferol (vitamin D3) 50 2,000 unit PO DAILY 05/27/18 08/17/22 History mcg (2,000 unit) capsule coenzyme Q10 300 mg capsule (Co 300 mg PO DAILY 05/27/18 08/17/22 History Q-10) loratadine 10 mg tablet (Claritin) 10 mg PO DAILY 05/27/18 08/17/22 History multivitamin 1 tab PO DAILY 05/27/18 08/17/22 History acyclovir 400 mg tablet See Rx Instructions .Route 11/13/21 08/17/22 Rx .COMPLEX #180 tabs citalopram 10 mg tablet 5 mg PO DAILY #45 tabs 11/13/21 08/17/22 Rx verapamil 120 mg tablet,extended See Rx Instructions .Route 11/13/21 08/17/22 Rx release .COMPLEX #90 tabs alprazolam 0.5 mg tablet 0.25 mg PO DAILY PRN anxiety 01/15/22 08/17/22 History aspirin 81 mg tablet,delayed 81 mg PO DAILY 01/15/22 08/17/22 History release (Adult Low Dose Aspirin) calcium carbonate 500 mg calcium See Rx Instructions PO ONCE 01/15/22 08/17/22 History (1,250 mg) tablet (Calcium 500) calcium carbonate 500 mg capsule 500 mg PO BID 01/15/22 08/17/22 History sodium,potassium,mag sulfates 17.5 See Rx Instructions PO .COMPLEX 08/01/22 08/17/22 Rx gram-3.13 gram-1.6 gram oral soln #354 mL (Suprep Bowel Prep Kit) Allergies Allergy/AdvReac Type Severity Reaction Status Date / Time lactase [From Dairy Aid] Allergy Mild sinus Verified 08/17/22 09:02 congestion cefaclor [From Ceclor] AdvReac Mild my head Verified 08/17/22 09:02 was pounding soy sauce Allergy Intermediate swelling Uncoded 08/17/22 09:02 in sinuses and throat Exam Vital Signs (past 8 hours): - 08/17/22 09:18 Temperature 97.4 F L Pulse Rate 97 H Respiratory Rate 18 Blood Pressure 150/98 H Pulse Oximetry 99 Oxygen Delivery Method Room Air Oxygen Delivery Method Room Air Const General: cooperative, healthy appearing and comfortable HENME Head: normal to inspection Neck Lymphatic: No lymphedema Resp Effort & Inspection: normal respiratory effort and able to speak in complete sentences GI Palpation: soft and No tender Assessment & Plan Assessment and plan (1) Screening for colon cancer: Status: Acute Assessment & Plan narrative: I discussed risks benefits and alternatives of a screening colonoscopy with Mrs. Guerra. Including but not limited to perforation of the colon and incomplete exam. She understands these risks and would like to proceed. Time Spent With Patient Critical Care time: I spent a total of [] minutes of critical care time on this patient's care today; this time is exclusive of procedural time.
[2022-08-17 11:29] VITALS: BP 111/76; PULSE 88; RESP 16; TEMP 36.2; O2SAT 98
[2022-08-17 11:34] VITALS: BP 109/81; PULSE 88; RESP 16; O2SAT 100
[2022-08-17 11:39] VITALS: BP 124/84; PULSE 89; RESP 16; TEMP 36.2; O2SAT 98
[2022-08-17 11:49] VITALS: BP 124/77; PULSE 88; RESP 16; TEMP 36.2; O2SAT 98
[2022-08-17 12:03] VITALS: BP 128/86; PULSE 74; RESP 16; TEMP 36.4; O2SAT 99
--- NOTE | 2022-08-17 17:15 | PM.OP.COLON ---
Operative Date/Time/Diagnoses Date of procedure: 08/17/22 Procedure & Clinicians Study performed: Colonoscopy and biopsy Same procedure as scheduled: Yes Indications: Screening Surgeon: Alejandra Bansal Procedure Notes Procedure in detail: Patient was taken to the endoscopy suite and placed in a left lateral decubitus position. A time-out was performed. Conscious sedation with the help of anesthesiologist was performed. Digital rectal exam was performed no masses or strictures were seen. There was a small external hemorrhoid. The colonoscope was introduced into the anal canal and advanced through to the cecum. Some abdominal pressure was required. A photograph of the appendiceal orifice was obtained. The colonoscope was then slowly withdrawn with a total withdrawal time of 28 minutes. A small rectal polyp was seen and biopsied. Specimen(s): other (Rectal polyp) Complications: none Post-procedure Plan for aftercare: Follow-up will likely be in 7-10 years depending on the pathology of the lesion. If it turns out to be hyperplastic a 10 year follow-up would be reasonable, except with a family history of colon cancer the recommendation is a 5 year follow-up.
== END 2022-08-17 12:24 | disposition home or self-care (01) ==
PROVIDERS: PCP Internal Medicine; Referring Provider Surgery; Visit Provider Surgery
PROC: 0DJD8ZZ Inspection of Lower Intestinal Tract, Via Natural or Artificial Opening Endoscopic (ICD-10-PCS; CPT 45378; principal; 2022-08-17 09:45)
DX: Z12.11 Encounter for screening for malignant neoplasm of colon (principal); K64.4 Residual hemorrhoidal skin tags; K62.1 Rectal polyp
CPT/HCPCS: 45380; J2250; J2704; J3010

== ENCOUNTER → 2023-01-30 15:39 | Outpatient (CLI) | payer MEDICARE, OTHER, SELFPAY ==
--- NOTE | 2023-01-30 | DI.MG.S_ITS ---
BILATERAL DIGITAL SCREENING MAMMOGRAM 3D/2D WITH CAD WITH AUGMENTATION: 01/30/2023 CLINICAL: Routine screening. Comparison is made to exams dated: 02/03/2021 mammogram, 09/14/2019 mammogram, and 07/08/2018 mammogram - [facility]. There are scattered areas of fibroglandular density in both breasts (category b / 25%-50% glandular tissue). Current study was also evaluated with a Computer Aided Detection (CAD) system. Bilateral breast implants are stable. No significant masses, calcifications, or other findings are seen in either breast. There has been no significant interval change. IMPRESSION: NEGATIVE There is no mammographic evidence of malignancy. A 1 year screening mammogram is recommended. Based on the Tyrer Cuzick model (a risk assessment model) the patient's lifetime risk is 5.1% and her 10 year risk is 4.6%. According to the ACR, ACS, and NCCN guidelines, an annual breast MRI exam along with mammogram is recommended if the patient's lifetime risk is 20% or greater. This exam was interpreted at Station ID: [id number]. NOTE: For mammograms, a report in lay terms will be sent to the patient. Approximately 15% of breast malignancies will not be visualized mammographically. In the management of a palpable breast mass, a negative mammogram must not discourage biopsy of a clinically suspicious lesion. Electronically Signed By: Jarod ariza/marcell:01/31/2023 09:22:50 letter sent: Normal Exam ACR BI-RADS Category 1: Negative [id number]
== END ==
PROVIDERS: PCP Internal Medicine; Referring Provider Internal Medicine; Visit Provider Internal Medicine
DX: Z12.31 Encounter for screening mammogram for malignant neoplasm of breast (principal)
CPT/HCPCS: 77063; 77067

== ENCOUNTER → 2023-02-08 08:42 | Outpatient (CLI) | payer MEDICARE, OTHER, SELFPAY ==
[2023-02-08 10:13] LABS: Hematocrit 40.7 % (36-46); Hemoglobin 13.9 g/dL (12.0-16.0); Mean Corpuscular HGB Conc 34.1 % (30-36); Mean Corpuscular Hemoglobin 31.9 PG (26-34); Mean Corpuscular Volume 93.5 fL (80-100); Platelet Count 226 X10^3/uL (150-400); Red Blood Cell Count 4.35 X10^6/uL (4.0-5.2); Red Cell Distribution Width 12.9 % (11.6-14.8); White Blood Cell Count 4.2 X10^3/uL (4.5-11.0)
[2023-02-08 10:53] LABS: Alanine Aminotransferase 30 IU/L (<35); Albumin 4.2 g/dL (3.5-5.0); Albumin Globulin Ratio 1.6 (1.0-2.8); Alkaline Phosphatase 75 U/L (38-126); Aspartate Aminotransferase 36 IU/L (14-36); BUN Creatinine Ratio 20.5 (6-22); Bilirubin Total 0.4 mg/dL (0.2-1.3); Blood Urea Nitrogen 15 mg/dL (7-17); Calcium 9.1 mg/dL (8.4-10.2); Carbon Dioxide 37 mmol/L (22-32); Chloride 97 mmol/L (98-107); Cholesterol 220 mg/dL (140-199); Estimated Glomerular Filt Rate > 60 mL/min (>60); Globulin 2.7 g/dL (1.7-4.1); Glucose 84 mg/dL (80-110); HDL Cholesterol 95 mg/dL (40-60); HEMOLYSIS < 15 (0-50); LDL Cholesterol Calculated 112 mg/dL (<100); Potassium 4.4 mmol/L (3.4-5.1); Sodium 138 mmol/L (137-145); Total Protein 6.9 g/dL (6.3-8.2); Triglycerides 65 mg/dL (35-150)
[2023-02-08 11:12] LABS: TSH w/ Reflex to FT4 2.53 uIU/mL (0.47-4.68)
== END ==
PROVIDERS: PCP Internal Medicine; Referring Provider Internal Medicine; Visit Provider Internal Medicine
DX: E21.3 Hyperparathyroidism, unspecified (principal); E78.2 Mixed hyperlipidemia; I10 Essential (primary) hypertension
CPT/HCPCS: 36415; 80053; 80061; 84443; 85027

== ENCOUNTER → 2024-02-03 16:26 | Outpatient (CLI) | payer MEDICARE, OTHER, SELFPAY ==
[2024-02-03 16:57] LABS: Mean Corpuscular HGB Conc 34.2 % (30-36); Mean Corpuscular Hemoglobin 32.4 PG (26-34); Mean Corpuscular Volume 94.9 fL (80-100); Platelet Count 234 X10^3/uL (150-400); Red Blood Cell Count 4.32 X10^6/uL (4.0-5.2); Red Cell Distribution Width 12.9 % (11.6-14.8); White Blood Cell Count 5.2 X10^3/uL (4.5-11.0)
[2024-02-03 17:19] LABS: Alanine Aminotransferase 28 IU/L (<35); Albumin 4.3 g/dL (3.5-5.0); Albumin Globulin Ratio 1.4 (1.0-2.8); Alkaline Phosphatase 76 U/L (38-126); Amylase 95 U/L (30-110); Aspartate Aminotransferase 34 IU/L (14-36); BUN Creatinine Ratio 37.1 (6-22); Bilirubin Total 0.4 mg/dL (0.2-1.3); Blood Urea Nitrogen 26 mg/dL (7-17); Calcium 9.2 mg/dL (8.4-10.2); Carbon Dioxide 32 mmol/L (22-32); Chloride 101 mmol/L (98-107); Cholesterol 226 mg/dL (140-199); Estimated Glomerular Filt Rate > 60 mL/min (>60); Glucose 129 mg/dL (80-110); HDL Cholesterol 101 mg/dL (40-60); HEMOLYSIS < 15 (0-50); LDL Cholesterol Calculated 109 mg/dL (<100); Lipase 138 U/L (23-300); Potassium 3.6 mmol/L (3.4-5.1); Sodium 138 mmol/L (137-145); Total Protein 7.3 g/dL (6.3-8.2); Triglycerides 81 mg/dL (35-150)
== END ==
PROVIDERS: PCP Internal Medicine; Referring Provider Internal Medicine; Visit Provider Internal Medicine
DX: R10.9 Unspecified abdominal pain (principal); E78.2 Mixed hyperlipidemia; I10 Essential (primary) hypertension
CPT/HCPCS: 80053; 80061; 82150; 83690; 85027

== ENCOUNTER → 2024-02-14 09:50 | Outpatient (CLI) | payer MEDICARE, OTHER, SELFPAY ==
--- NOTE | 2024-02-14 09:52 | DI.US.S_ITS ---
PROCEDURE: US ABDOMEN COMPLETE INDICATIONS: abdominal pain TECHNIQUE: Real-time scanning was performed of the abdominal and retroperitoneal organs, with image documentation. COMPARISON: None. FINDINGS: Liver: Liver is normal in size and homogeneous in echotexture. Gallbladder: No findings of gallstones or sludge are seen. The gallbladder wall is not thickened, measuring 3 mm or less. Two gallbladder wall polyps are seen that measure up to 5 mm. No specific pericholecystic fluid is seen. The sonographic Cochran sign is negative. Biliary ducts: Intrahepatic bile ducts are non-dilated. Extrahepatic bile duct caliber measures 5 mm. Normal is 6-7 mm or less in diameter, or 10 mm or less post-cholecystectomy. Pancreas: Visualized portions of the pancreas are sonographically normal. Spleen: Spleen is normal in size and homogeneous in echotexture. Kidneys: Right kidney measures 10.2 cm long; left kidney measures 8.4 cm long. No hydronephrosis or nephrolithiasis. No solid masses. Aorta: Visualized aorta is normal in caliber at less than 3 cm. Iliacs: Proximal common iliac arteries are normal in caliber at less than 2.5 cm. IVC: Intrahepatic inferior vena cava is patent. Miscellaneous: No free abdominal fluid. IMPRESSION: The gallbladder demonstrates a normal sonographic appearance, with incidental note made of 2 gallbladder wall polyps. No biliary dilatation is seen. Small measured left kidney size. Dictated by: Juan Hutson M.D. on 02/14/2024 at 10:09 Approved by: Juan Hutson M.D. on 02/14/2024 at 10:10
== END ==
PROVIDERS: PCP Internal Medicine; Referring Provider Internal Medicine; Visit Provider Internal Medicine
DX: K82.4 Cholesterolosis of gallbladder (principal); R10.9 Unspecified abdominal pain; E78.2 Mixed hyperlipidemia; I10 Essential (primary) hypertension
CPT/HCPCS: 76700

== ENCOUNTER → 2024-03-09 15:20 | Outpatient (CLI) | payer MEDICARE, OTHER, SELFPAY ==
--- NOTE | 2024-03-09 15:22 | DI.MRI.S_ITS ---
PROCEDURE: MR HIP RT WO CON INDICATIONS: leg/hip pain TECHNIQUE: Noncontrast coronal T1 spin echo and STIR through the bony pelvis. Coronal and axial T2 fast spin echo with fat saturation, sagittal T1 spin echo, and oblique axial T2 fast spin echo with fat saturation through the hip. COMPARISON: None. FINDINGS: Image quality: Excellent. Bones and joints: Bone marrow of the pelvic ring and proximal femurs show normal signal throughout. No intraosseous lesions or fractures. No avascular necrosis of the femoral head. Degenerative changes are seen at the pubic symphysis and sacroiliac joints. Disc desiccation and facet hypertrophy are seen in the included spine. Tendons and ligaments: Distal gluteus medius and minimus tendinosis with low-grade partial tearing at the distal gluteus medius insertion. No significant overlying bursal fluid is present. The proximal iliotibial band appears intact. The iliopsoas tendon appears intact, without adjacent bursal fluid collections. The origin of the hamstring tendon demonstrates mild tendinosis. The tendons for the direct and indirect heads of the rectus femoris muscle appear intact. Labrum and cartilage: Diffuse labral degeneration. No acute displaced labral tear. Mild partial-thickness cartilage irregularity in the glenohumeral joint with subchondral cystic changes and small marginal osteophytes. No significant hip effusion. Small osseous protuberance is seen at the anterior superior femoral head/neck junction, which can be seen in the setting of cam-type femoroacetabular impingement. Soft tissues: Visualized muscles demonstrate normal bulk and internal signal. Quadratus femoris muscle demonstrates no internal edema to suggest ischiofemoral impingement. The proximal sciatic neurovascular bundle appears normal adjacent to the hamstring tendons. Focal fluid signal intensity is seen in the region of the left inguinal canal, possibly related to a small inguinal hernia, and not well evaluated on this exam. IMPRESSION: 1. No acute traumatic findings in the right hip. 2. Chronic low-grade partial tearing of the distal right gluteus medius tendon at its insertion superimposed on gluteus medius and minimus tendinosis. 3. 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 Mild diffuse labral degeneration. 4. Mild proximal hamstring tendinosis. 5. Degenerative changes are seen in the pubic symphysis, sacroiliac joints, and included spine. Approved by: Ric Macias M.D. on 03/09/2024 at 16:56
--- NOTE | 2024-03-09 15:22 | DI.MRI.S_ITS ---
PROCEDURE: MR LOWER LEG RT WO CON INDICATIONS: leg pain extending beyond knee TECHNIQUE: Noncontrast coronal and sagittal T1 spin echo and STIR; axial T1 spin echo and T2 fast spin echo with fat saturation through the right lower leg. COMPARISON: [facility], , MR KNEE RT WO CON, 03/09/2024, 15:32. FINDINGS: Image quality: Excellent. Bones: Focal osseous edema is seen at the posterolateral aspect of the right lateral tibial plateau corresponding to the nondepressed fracture is better seen on dedicated knee MRI performed at the same time. The more distal portions of the tibia and fibula appear to be intact. Soft tissues: Mild nonspecific subcutaneous edema at the posterolateral aspect of the knee. There is nonspecific subcutaneous edema at the anterior medial and lateral aspect of the distal lower leg. The scanned muscles demonstrate normal overall bulk and internal signal. IMPRESSION: Focal osseous edema at the posterolateral aspect of the lateral tibial plateau corresponds to the normal and proximal chondral fracture better seen on MRI performed the same time. No additional osseous abnormality identified in the lower leg. Approved by: Ric Macias M.D. on 03/09/2024 at 17:07
--- NOTE | 2024-03-09 15:22 | DI.MRI.S_ITS ---
PROCEDURE: MR KNEE RT WO CON INDICATIONS: eval for right quadriceps tendon rupture TECHNIQUE: Noncontrast sagittal PD fast spin echo and T2 fast spin echo with fat saturation, sagittal 3-D FLASH with fat saturation; coronal T1 spin echo and PD fast spin echo with fat saturation, and axial PD fast spin echo with fat saturation through the knee. COMPARISON: None. FINDINGS: Image quality: Excellent. Anterior cruciate ligament: Intact. Posterior cruciate ligament: Intact. Medial collateral ligament: Intact. Lateral collateral ligament: Intact. Medial meniscus: Intrasubstance signal is seen at the posterior horn and body without a discrete tear, compatible with intrasubstance degeneration. Lateral meniscus: Intact. Medial and lateral tendons: The semimembranosus tendon insertions appear intact. Visualized portions of the pes anserinus tendons appear normal. The popliteus tendon is intact. Iliotibial band appears normal. Anterior structures: The quadriceps and patellar tendons appear intact. No patellar subluxation. No femoral trochlear dysplasia or ventral trochlear prominence. No edema in the infrapatellar fat pad. Bones and cartilage: Small nondepressed subchondral fracture of the posterior lateral aspect of the lateral tibial plateau measuring approximately 14 x 5 x 4 mm. No depression of the overlying articular surface is seen. Medial femorotibial cartilage: Mild partial-thickness cartilage thinning. No focal cartilage defect. Lateral femorotibial cartilage: Mild partial-thickness cartilage thinning. No focal cartilage defect. Patellofemoral cartilage: Mild partial-thickness cartilage thinning and surface irregularity. Soft tissues: Small joint effusion. Small medial popliteal cyst. Nonspecific subcutaneous edema is seen at the posterior lateral aspect of the knee. Small amount of fluid is seen in the proximal tibiofibular articulation. The visualized musculature is age-appropriate in bulk. IMPRESSION: 1. Small nondepressed subchondral fracture at the posterior lateral aspect of the lateral tibial plateau. No disruption of the overlying articular surface is seen. 2. Distal quadriceps tendon is intact. Cruciate and collateral ligaments are intact. 3. Mild intrasubstance degeneration in the medial meniscus without a discrete tear. Lateral meniscus is intact. 4. Tricompartmental mild grade 2 chondromalacia. 5. Small joint effusion. Nonspecific soft tissue edema at the posterolateral aspect of the knee without additional signs of posterolateral corner injury. Approved by: Ric Macias M.D. on 03/09/2024 at 16:51
== END ==
LOC: MRI 15:21
PROVIDERS: PCP Internal Medicine; Referring Provider Nurse Practitioner Family; Visit Provider Nurse Practitioner Family
DX: S82.141A Displaced bicondylar fracture of right tibia, initial encounter for closed fracture (principal); M71.21 Synovial cyst of popliteal space [Baker], right knee; M25.461 Effusion, right knee; M94.261 Chondromalacia, right knee; S76.011A Strain of muscle, fascia and tendon of right hip, initial encounter; M94.251 Chondromalacia, right hip; S76.119A Strain of unspecified quadriceps muscle, fascia and tendon, initial encounter; M79.604 Pain in right leg; M25.551 Pain in right hip; X58.XXXA Exposure to other specified factors, initial encounter
CPT/HCPCS: 73718; 73721

== ENCOUNTER → 2024-05-13 14:13 | Outpatient (CLI) | payer MEDICARE, OTHER, SELFPAY ==
--- NOTE | 2024-05-13 | DI.MG.S_ITS ---
BILATERAL DIGITAL SCREENING MAMMOGRAM 3D/2D WITH CAD WITH AUGMENTATION: 05/13/2024 CLINICAL: Routine screening. Comparison is made to exams dated: 01/30/2023 mammogram, 02/03/2021 mammogram, and 09/14/2019 mammogram - [facility]. There are scattered areas of fibroglandular density (category b / 25%-50% glandular tissue). Current study was also evaluated with a Computer Aided Detection (CAD) system. Bilateral breast implants are stable. No significant masses, calcifications, or other findings are seen in either breast. There has been no significant interval change. IMPRESSION: NEGATIVE There is no mammographic evidence of malignancy. A 1 year screening mammogram is recommended. Based on the Tyrer Cuzick model (a risk assessment model) the patient's lifetime risk is 4.8% and her 10 year risk is 4.8%. According to the ACR, ACS, and NCCN guidelines, an annual breast MRI exam along with mammogram is recommended if the patient's lifetime risk is 20% or greater. This exam was interpreted at Station ID: [id number]. NOTE: For mammograms, a report in lay terms will be sent to the patient. Approximately 15% of breast malignancies will not be visualized mammographically. In the management of a palpable breast mass, a negative mammogram must not discourage biopsy of a clinically suspicious lesion. Electronically Signed By: Levi su/marcell:05/15/2024 06:57:15 letter sent: Normal Exam ACR BI-RADS Category 1: Negative
== END ==
PROVIDERS: PCP Internal Medicine; Referring Provider Internal Medicine; Visit Provider Internal Medicine
DX: Z12.31 Encounter for screening mammogram for malignant neoplasm of breast (principal)
CPT/HCPCS: 77063; 77067

== ENCOUNTER → 2024-07-03 14:56 | Outpatient (CLI) | payer MEDICARE, OTHER, SELFPAY ==
--- NOTE | 2024-07-03 14:57 | DI.RAD.S_ITS ---
PROCEDURE: XR DEXA AXIAL SKELETON INDICATIONS: osteoporosis COMPARISON: None. FINDINGS: Lumbar Spine: Bone mineral density 0.608 g/cm2, T score -4, osteoporosis. Left Femoral Neck: Bone mineral density 0.502 g/cm2, T score -3.1, osteoporosis. Right Femoral Neck: Bone mineral density 0.501 g/cm2, T score -3.1, osteoporosis. Fracture Risk Calculation (when applicable): 10-year fracture risk of a major osteoporotic fracture 21 percent and of a hip fracture 8.3 percent. (T score greater or equal to -1.0 to: NORMAL) (T score from -1.1 to -2.4: OSTEOPENIA) (T score less than or equal to -2.5: OSTEOPOROSIS) IMPRESSION: Osteoporosis of the femoral necks and lumbar spine. Follow-up guidelines as follows: Osteoporosis: Consider a repeat DEXA and Vertebral Fracture Assessment (VFA) exam in 2 years or sooner if medically necessary, to reassess this patient's status. Osteopenia: Consider a repeat DEXA in 2-3 years to reassess this patient's status, or if there is a new clinical indication. Normal: Consider a repeat DEXA in 5 years or sooner, or if there is a new clinical indication. All treatment decisions require clinical judgment and consideration of individual patient factors, including patient preferences, comorbidities, previous drug use, risk factors not captured in the FRAX model (e.g., frailty, falls, vitamin D deficiency, increased bone turnover, interval significant decline in bone density ) and possible under- or over-estimation of fracture risk by FRAX. In addition, the NOF Guide recommends that FDA-approved medical therapies be considered in postmenopausal women and men age >= 50 years with a: * Hip or vertebral (clinical or morphometric) fracture * T-score of <=-2.5 at the spine or hip * Ten-year fracture probability by FRAX of >= 3% for hip fracture or >=20% for major osteoporotic fracture. People with diagnosed cases of osteoporosis or at high risk for fracture should have regular bone mineral density tests. For patients eligible for Medicare, routine testing is allowed once every 2 years. The testing frequency can be increased to one year for patients who have rapidly progressing disease, those who are receiving or discontinuing medical therapy to restore bone mass, or have additional risk factors. Dictated by: Emeterio Leigh M.D. on 07/03/2024 at 16:03 Approved by: Emeterio Leigh M.D. on 07/03/2024 at 16:04
== END ==
PROVIDERS: PCP Internal Medicine; Referring Provider Internal Medicine; Visit Provider Internal Medicine
DX: M81.0 Age-related osteoporosis without current pathological fracture (principal)
CPT/HCPCS: 77080

== ENCOUNTER 2024-08-27 12:16 | Day surgery (SDC) | payer MEDICARE, OTHER, SELFPAY ==
--- NOTE | 2024-08-27 | PATH_ITS ---
[facility] Accession Number: [id number] No. of containers..01 Tissue . 01 Material submitted: . stomach - ANTRUM . 01 Diagnosis: ANTRUM: Gastric mucosa with minimal chronic inflammation. No Helicobacter organisms identified on H/E stain. No intestinal metaplasia, dysplasia, or malignancy identified. [facility] 08/31/20241214 Local . 01 Electronically signed: . Emeterio Hyde MD, Pathologist NPI- [id number] . 01 Gross description: . Received in formalin with two patient identifiers and antrum biopsy, are three fisher soft tissue fragment, 0.3-0.5 cm in greatest dimension, submitted in A1. ([id number]) /MRV 08/31/20241214 Local . 01 Pathologist provided ICD-10: K29.30 . 01 CPT . 920283 Specimen Comment: A courtesy copy of this report has been sent to [phone] Performed at: [address] [address], [place], [place] [id number] MD Emeterio Hyde MD Phone: [phone]
[2024-08-27 12:46] VITALS: BP 147/97; PULSE 92; RESP 20; TEMP 36.5; O2SAT 99
--- NOTE | 2024-08-27 12:56 | PM.PREOP ---
Pre-operative Note COVID-19 COVID-19 status: Not tested Interval Note History & Physical reviewed/Exam performed by Physician: Yes Changes to H&P: No ASA Class (for procedural sedation): II
--- NOTE | 2024-08-27 13:27 | PM.OP.EGD ---
Operative Date/Time/Diagnoses Date of procedure: 08/27/24 Time of procedure: 13:27 Pre-op diagnosis: Abdominal pain Post-op diagnosis: same Procedure & Clinicians Study performed: Esophagogastroduodenoscopy Same procedure as scheduled: Yes Surgeon: Richar Gomes Procedure Notes Procedure in detail: Surgeon: Richar Gomes MD Anesthesia: Laura Schmitz CRNA A timeout was performed. A bite blocked was placed. The patient was positioned in the left lateral decubitus position. Anesthesia was administered. The endoscope was inserted through the bite block and passed into the posterior oropharynx. There was a little bit of difficulty getting into esophagus initially. The scope was then advanced through the esophagus and stomach and into the duodenum. The duodenal mucosa appeared normal. The scope was withdrawn into the duodenal bulb and no abnormalities were seen. The scope was withdrawn into the stomach. There was mild antritis and we were getting ready to perform biopsies of the antrum with cold forceps when the patient developed hypoxia and suspected laryngospasm endoscope was withdrawn. She was not moving air for period of time but the spasm was able to be broken with extra sedation and positive pressure mask ventilation. We repositioned her and then reintroduced the endoscope into the stomach. We took biopsies of the antrum with cold forceps. The rest of the stomach was normal. The scope was retroflexed and no hiatal hernia was seen. The scope was withdrawn into the esophagus and no abnormalities were noted. The remainder of the esophagus was normal. The scope was withdrawn. The patient was awakened and brought to recovery. Sedation time: 6 minutes Findings: Mild antritis and suspected laryngospasm Post-procedure Disposition: PACU
[2024-08-27 13:41] VITALS: BP 128/92; PULSE 102; RESP 21; TEMP 36.3; O2SAT 96
[2024-08-27 13:46] VITALS: BP 123/82; PULSE 105; RESP 16; O2SAT 96
[2024-08-27 13:51] VITALS: BP 142/96; PULSE 102; RESP 28; O2SAT 96
[2024-08-27 13:58] VITALS: BP 154/104; PULSE 97; RESP 16; O2SAT 96
[2024-08-27] MEDS: LACTATED RINGERS 1,000 ML 150 ML IV (14:03)
--- NOTE | 2024-08-27 14:42 | SUR.PHASEII ---
No difficulty breathing at discharge. Speaking in full sentences. Swallowing water without difficulty. Reviewed all instructions with patient. Stressed to patient the importance of seeing an ENT for her laryngospasm Referral given to patient for Dr Dallas
== END 2024-08-27 14:48 | disposition home or self-care (01) ==
PROVIDERS: PCP Internal Medicine; Referring Provider Surgery; Visit Provider Surgery
PROC: 0DJ08ZZ Inspection of Upper Intestinal Tract, Via Natural or Artificial Opening Endoscopic (ICD-10-PCS; CPT 43239; principal; 2024-08-27 15:45)
DX: K29.50 Unspecified chronic gastritis without bleeding (principal); J38.5 Laryngeal spasm
CPT/HCPCS: 43239; J2250; J2704

== ENCOUNTER → 2025-01-26 14:23 | Outpatient (CLI) | payer MEDICARE, OTHER, SELFPAY ==
[2025-01-26 15:27] LABS: Hemoglobin A1C% w Est Avg Glu 5.4 % (4.0-6.0)
[2025-01-26 15:36] LABS: Blood Urea Nitrogen 20 mg/dL (7-17); Calcium 9.3 mg/dL (8.4-10.2); Carbon Dioxide 33 mmol/L (22-32); Chloride 97 mmol/L (98-107); Cholesterol 213 mg/dL (140-199); Estimated Glomerular Filt Rate > 60 mL/min (>60); Glucose 131 mg/dL (70-99); HDL Cholesterol 88 mg/dL (40-60); HEMOLYSIS < 15 (0-50); Potassium 4.2 mmol/L (3.4-5.1); Sodium 135 mmol/L (137-145); Triglycerides 78 mg/dL (35-150)
[2025-01-26 15:37] LABS: Albumin 4.2 g/dL (3.5-5.0); Blood Urea Nitrogen 20 mg/dL (7-17); Calcium 9.3 mg/dL (8.4-10.2); Carbon Dioxide 33 mmol/L (22-32); Chloride 98 mmol/L (98-107); Estimated Glomerular Filt Rate > 60 mL/min (>60); Glucose 130 mg/dL (70-99); HEMOLYSIS < 15 (0-50); Phosphorous 3.5 mg/dL (2.8-4.1); Potassium 4.3 mmol/L (3.4-5.1); Sodium 135 mmol/L (137-145)
[2025-01-26 15:59] LABS: Vitamin D 25 Hydroxy (D3) 68.4 ng/mL (30.0-100.0)
[2025-01-26 16:04] LABS: TSH w/ Reflex to FT4 1.22 uIU/mL (0.47-4.68)
[2025-01-27 09:36] LABS: Calcium 9.4 mg/dL (8.7-10.3); Parathyroid Hormone, Intact 56 pg/mL (15-65)
== END ==
PROVIDERS: PCP Internal Medicine; Referring Provider Student in an Organized Health Care Education/Training Program; Visit Provider Student in an Organized Health Care Education/Training Program
DX: R73.01 Impaired fasting glucose (principal); I10 Essential (primary) hypertension; M81.0 Age-related osteoporosis without current pathological fracture; E78.2 Mixed hyperlipidemia
CPT/HCPCS: 36415; 80048; 80061; 80069; 82306; 82310; 83036; 83970; 84443; 84450